=== PATIENT | female | born 1970 | race American Indian/Alaskan Native ===

== ENCOUNTER 2016-08-13 02:24 | Emergency (ER) | payer SELFPAY ==
[2016-08-13] MEDS ORDERED: PROVENTIL IH ONE ×2 (02:37→04:11)
[2016-08-13] MEDS ORDERED: MAGNESIUM SULFATE 2GM/50ML 2 GM in D5W 100 ML IV ONE (02:37)
--- NOTE | 2016-08-13 02:45 | Emergency Department Report ---
ED Shortness of Breath HPI - General Chief Complaint: Dyspnea/Respdistress Stated Complaint: DIONISIO Time Seen by Provider: 08/13/16 02:32 Source: patient, EMS Mode of arrival: Stretcher Limitations: No Limitations - History of Present Illness Initial Comments: 45-year-old female presents to the emergency department via EMS complaining of difficulty breathing. Patient reports symptoms began yesterday. She reports tightness in her chest that does not radiate. There is been cough productive of yellow to brown sputum. She denies fever. Patient states she has been using her nebulizer treatments at home without relief. EMS administered albuterol and 125 mg of Solu-Medrol IV. There are no other complaints. MD Complaint: shortness of breath -: Gradual, days(s) (1) Pain Scale: 3 Quality: other (tightness) Consistency: constant Improves With: nothing Worsens With: nothing Known History Of: asthma, congestive heart failure Treatments Prior to Arrival: oxygen, bronchodilator - Related Data Previous Rx's Medication Instructions Recorded Last Taken Type predniSONE [Deltasone] 3 tab PO QDAY #15 tab 08/13/16 Unknown Rx Allergies Allergy/AdvReac Type Severity Reaction Status Date / Time No Known Allergies Allergy Unverified 08/13/16 02:37 ED Review of Systems ROS: Stated complaint: DIONISIO Other details as noted in HPI Comment: All other systems reviewed and negative Respiratory: cough, shortness of breath, wheezing Cardiovascular: chest pain ED Past Medical Hx - Past Medical History Previous Medical History?: Yes Hx Hypertension: Yes Hx Congestive Heart Failure: Yes Hx Asthma: Yes - Surgical History Past Surgical History?: No - Family History Family history: no significant - Social History Smoking Status: Never Smoker - Medications Home Medications: Home Medications Medication Instructions Recorded Confirmed Last Taken Type predniSONE [Deltasone] 3 tab PO QDAY #15 tab 08/13/16 Unknown Rx ED Physical Exam - General Limitations: No Limitations General appearance: alert, in distress (mild respiratory distress) - Head Head exam: Present: atraumatic, normocephalic - Eye Eye exam: Present: normal appearance, PERRL, EOMI - ENT ENT exam: Present: normal exam, normal orophraynx, mucous membranes moist - Neck Neck exam: Present: normal inspection, full ROM. Absent: tenderness - Respiratory Respiratory exam: Present: respiratory distress (mild tachypnea), decreased breath sounds (bilateral posterior diffuse) - Cardiovascular Cardiovascular Exam: Present: regular rate, normal rhythm, normal heart sounds - GI/Abdominal GI/Abdominal exam: Present: soft, normal bowel sounds. Absent: distended, tenderness - Extremities Exam Extremities exam: Present: normal inspection, full ROM. Absent: tenderness - Back Exam Back exam: Present: normal inspection, full ROM. Absent: tenderness - Neurological Exam Neurological exam: Present: alert, oriented X3. Absent: motor sensory deficit - Skin Skin exam: Present: warm, dry, intact ED Course Vital Signs 08/13/16 08/13/16 08/13/16 02:41 02:49 03:08 Temperature 98 F Pulse Rate 79 Pulse Rate [ 79 Anterior Bilateral Throughout] Respiratory 20 20 Rate Respiratory 24 Rate [Anterior Bilateral Throughout] Blood Pressure 94/32 [Left] O2 Sat by Pulse 99 100 Oximetry 08/13/16 03:09 Temperature Pulse Rate Pulse Rate [ 80 Anterior Bilateral Throughout] Respiratory Rate Respiratory 24 Rate [Anterior Bilateral Throughout] Blood Pressure [Left] O2 Sat by Pulse Oximetry ED Medical Decision Making - Lab Data Result diagrams: 08/13/16 02:50 08/13/16 02:50 - EKG Data -: EKG Interpreted by Me EKG shows normal: sinus rhythm, axis, intervals, QRS complexes, ST-T waves Rate: normal - EKG Data When compared to previous EKG there are: no significant change Interpretation: normal EKG - Radiology Data Radiology results: image reviewed interpreted by me: Chest x-ray reveals no acute cardiopulmonary abnormality. - Medical Decision Making Lab and imaging results reviewed and discussed with the patient. Following medication, the patient reports feeling much better. Her chest tightness has resolved. Lung auscultation reveals clear breath sounds bilaterally. Patient will be discharged home at this time. - Differential Diagnosis asthma exacerbation, pneumonia, CHF Critical care attestation.: If time is entered above; I have spent that time in minutes in the direct care of this critically ill patient, excluding procedure time. ED Disposition Clinical Impression: Asthma exacerbation Disposition: DISCHARGED TO HOME OR SELFCARE Is pt being admited?: No Condition: Stable Instructions: Asthma (ED) Prescriptions: predniSONE [Deltasone] 3 tab PO QDAY #15 tab Referrals: PRIMARY CARE, [Primary Care Provider] - 3-5 Days Time of Disposition: 04:41
[2016-08-13] MEDS ORDERED: MAGNESIUM SULFATE 2GM/50ML 50 ML IV ONE (03:00)
[2016-08-13 03:11] LABS: Basophils % (Auto) 0.3 % (0.0-1.8); Eosinophils % (Auto) 0.6 % (0.0-4.3); Hematocrit 35.2 % (30.3-42.9); Hemoglobin 11.5 gm/dl (10.1-14.3); Mean Corpuscular HGB Conc 33 % (30-34); Mean Corpuscular Hemoglobin 29 pg (28-32); Mean Corpuscular Volume 88 fl (79-97); Platelet Count 207 K/mm3 (140-440); Red Cell Distribution Width 14.6 % (13.2-15.2)
[2016-08-13 03:27] LABS: BUN/Creatinine Ratio 15.45; Blood Urea Nitrogen 17 mg/dL (7-17); Calcium 8.6 mg/dL (8.4-10.2); Carbon Dioxide 27 mmol/L (22-30); Chloride 97.1 mmol/L (98-107); Glucose 136 mg/dL (65-100); Magnesium 1.5 mg/dL (1.7-2.3); Potassium 3.4 mmol/L (3.6-5.0); Sodium 142 mmol/L (137-145)
[2016-08-13 03:33] LABS: Anion Gap 21 mmol/L
[2016-08-13 05:45] VITALS: BP 116/81
--- NOTE | 2016-08-14 07:15 | XRay Report ---
AP CHEST: HISTORY: Dyspnea. FINDINGS: Compared to 08/13/10. There is mild cardiomegaly and borderline pulmonary vascularity. Trace pleural effusions could be present. No consolidation or pneumothorax. Heart and mediastinal structures are within normal limits. IMPRESSION: Correlate for mild CHF.
== END 2016-08-13 05:46 | disposition home or self-care (01) ==
LOC: ED 02:24
DX: J45.901 Unspecified asthma with (acute) exacerbation (principal); I10 Essential (primary) hypertension; I50.9 Heart failure, unspecified
CPT/HCPCS: 36415; 71010; 80048; 83735; 83880; 84484; 85025; 93005; 93010; 94640; 96374; 99285; J3475

== ENCOUNTER 2017-11-13 08:48 | Inpatient (IN) | payer OTHER ==
[2017-11-13 09:36] LABS: Hematocrit 44.1 % (30.3-42.9); Hemoglobin 13.9 gm/dl (10.1-14.3); Mean Corpuscular HGB Conc 32 % (30-34); Mean Corpuscular Hemoglobin 29 pg (28-32); Mean Corpuscular Volume 92 fl (79-97); Platelet Count 247 K/mm3 (140-440)
[2017-11-13] MEDS ORDERED: CARDENE 50 MG in NACL 0.9% 250ML 230 ML IV SCH (10:00)
[2017-11-13 10:02] LABS: Creatine Kinase MB 3.5 ng/mL (0.0-4.0)
[2017-11-13 10:03] LABS: Alanine Aminotransferase 19 units/L (7-56); Albumin 4.5 g/dL (3.9-5); BUN/Creatinine Ratio 28; Blood Urea Nitrogen 17 mg/dL (7-17); Calcium 8.8 mg/dL (8.4-10.2); Hemolysis Index 14
--- NOTE | 2017-11-13 10:15 | XRay Report ---
AP CHEST: HISTORY: Short of breath, confusion Mild cardiomegaly and mild pulmonary venous congestion have developed since 12/04/16. Trace pleural effusions are suspected. No consolidation or pneumothorax. IMPRESSION: Mild CHF which appears to be new since 12/04/16.
[2017-11-13 10:17] LABS: Chol/HDL Ratio 2.63 %
--- NOTE | 2017-11-13 10:27 | Emergency Department Report ---
ED Altered Mental Status HPI - General Chief Complaint: Altered Mental Status Stated Complaint: DIONISIO Time Seen by Provider: 11/13/17 09:11 Source: EMS, old records reviewed (cardiac cath November 2016 patent coronary arteries with normal LV function at that time) Mode of arrival: Stretcher Limitations: Altered Mental Status - History of Present Illness Initial Comments: 47-year-old female with a past medical history of asthma with history of previous intubation, hypertension, CVA this past August, and obesity presents to the hospital with alteration of mental status at work today. Patient is confused and unable to provide any reliable history at this time. 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 Patient placed in nonrebreather for transport and presents with a sat in the 90s. No specific pain report. Patient will follow basic commands but only alert and oriented 1. - Related Data Home Medications Medication Instructions Recorded Confirmed Last Taken Furosemide [Lasix TAB] 40 mg PO QDAY 11/13/17 11/13/17 Unknown Metformin HCl 1,000 mg PO BID 11/13/17 11/13/17 Unknown Potassium Chloride [K-Dur] 10 meq PO QDAY 11/13/17 11/13/17 Unknown Previous Rx's Medication Instructions Recorded Last Taken Type Losartan [Cozaar] 100 mg PO QDAY #30 tablet 12/05/16 Unknown Rx hydrALAZINE [Apresoline TAB] 100 mg PO TID #90 tab 12/05/16 Unknown Rx Allergies Allergy/AdvReac Type Severity Reaction Status Date / Time No Known Allergies Allergy Unverified 08/13/16 02:37 ED Review of Systems ROS: Stated complaint: DIONISIO Other details as noted in HPI Comment: Unobtainable due to pts medical conditions (confusion) ED Past Medical Hx - Past Medical History Hx Hypertension: Yes Hx Congestive Heart Failure: Yes Hx Asthma: Yes - Social History Smoking Status: Unknown if ever smoked - Medications Home Medications: Home Medications Medication Instructions Recorded Confirmed Last Taken Type Losartan [Cozaar] 100 mg PO QDAY #30 tablet 12/05/16 11/13/17 Unknown Rx hydrALAZINE [Apresoline TAB] 100 mg PO TID #90 tab 12/05/16 11/13/17 Unknown Rx Furosemide [Lasix TAB] 40 mg PO QDAY 11/13/17 11/13/17 Unknown History Metformin HCl 1,000 mg PO BID 11/13/17 11/13/17 Unknown History Potassium Chloride [K-Dur] 10 meq PO QDAY 11/13/17 11/13/17 Unknown History ED Physical Exam - General Limitations: Altered Mental Status - Other Other exam information: General: Limited by mental status, obese Head exam: Atraumatic, normocephalic Eyes exam: Normal appearance, pupils equal reactive to light, extraocular movements intact ENT: Moist mucous membrane, normal oropharynx Neck exam: Normal inspection, full range of motion, no meningismus nontender Respiratory exam: Tachypnea, bilateral crackles Cardiovascular: Tachycardic, positive systolic murmur Abdomen: Soft, nondistended, and nontender, with normal bowel sounds, no rebound, or guarding Extremity: Full range of motion normal inspection no deformity Back: Normal Inspection, full range of motion, no tenderness Neurologic: Alert, oriented 1, no facial droop, equal hand physical scientist and foot dorsiflexed Psychiatric: normal affect, normal mood Skin: Warm, dry, intact ED Course Vital Signs 11/13/17 11/13/17 11/13/17 09:02 09:16 09:30 Temperature Pulse Rate 105 H 102 H Respiratory 13 11 L Rate Blood Pressure 161/94 220/118 Blood Pressure [Left] O2 Sat by Pulse 63 L 96 98 Oximetry 11/13/17 11/13/17 11/13/17 09:33 09:40 12:45 Temperature 98.9 F Pulse Rate 107 H 75 Respiratory 12 13 12 Rate Blood Pressure 150/87 Blood Pressure 161/94 [Left] O2 Sat by Pulse 97 92 94 Oximetry 11/13/17 11/13/17 11/13/17 13:00 13:16 13:30 Temperature Pulse Rate 85 70 70 Respiratory 29 H 10 L 14 Rate Blood Pressure 168/103 106/42 115/50 Blood Pressure [Left] O2 Sat by Pulse 92 94 93 Oximetry 11/13/17 11/13/17 11/13/17 13:45 14:00 14:16 Temperature Pulse Rate 69 Respiratory 16 Rate Blood Pressure 106/62 129/48 84/70 Blood Pressure [Left] O2 Sat by Pulse 93 95 94 Oximetry - Reevaluation(s) Reevaluation #1: 11/13/17 10:54 Initial difficulty obtaining ABG due to body habitus. Patient was placed on BiPAP with settings 25/10, rate 25, satting 60%. Once ABG was obtained settings changed at 30/10 rate 30 and fio2 50%. Reevaluation #2: 11/13/17 13:04 patient became obtunded and no response to sternal rub. Patient was moved to another ED room in preparation for intubation. Just prior to intubation patient became alert, speaking, and able to follow commands. Patient placed back on BiPAP and patient will not be intubated at this time. Reevaluation #3: 11/13/17 repeat ABG showed improving CO2 and PH - Consultations Consultation #1: 11/13/17 10:48 Case discussed with Beatrice Lewis, consult ordered, will come to evaluate. - ABG Interpretation Ph: [phone] PCO2: 118 PO2: 112 Bicarbonate: 40 Interpretation: respiratory acidosis - Lab Data Result diagrams: 11/13/17 09:18 11/13/17 09:18 Lab Results 11/13/17 11/13/17 11/13/17 Range/Units 09:18 09:18 09:18 WBC 12.6 H (4.5-11.0) K/mm3 RBC 4.80 (3.65-5.03) M/mm3 Hgb 13.9 (10.1-14.3) gm/dl Hct 44.1 H (30.3-42.9) % MCV 92 (79-97) fl MCH 29 (28-32) pg MCHC 32 (30-34) % RDW 16.0 H (13.2-15.2) % Plt Count 247 (140-440) K/mm3 Add Manual Diff Complete Total Counted 100 Seg Neuts % (Manual) 78.0 H (40.0-70.0) % Band Neutrophils % 0 % Lymphocytes % (Manual) 13.0 L (13.4-35.0) % Reactive Lymphs % (Man) 0 % Monocytes % (Manual) 8.0 H (0.0-7.3) % Eosinophils % (Manual) 1.0 (0.0-4.3) % Basophils % (Manual) 0 (0.0-1.8) % Metamyelocytes % 0 % Myelocytes % 0 % Promyelocytes % 0 % Blast Cells % 0 % Nucleated RBC % Not Reportable Seg Neutrophils # Man 9.8 H (1.8-7.7) K/mm3 Band Neutrophils # 0.0 K/mm3 Lymphocytes # (Manual) 1.6 (1.2-5.4) K/mm3 Abs React Lymphs (Man) 0.0 K/mm3 Monocytes # (Manual) 1.0 H (0.0-0.8) K/mm3 Eosinophils # (Manual) 0.1 (0.0-0.4) K/mm3 Basophils # (Manual) 0.0 (0.0-0.1) K/mm3 Metamyelocytes # 0.0 K/mm3 Myelocytes # 0.0 K/mm3 Promyelocytes # 0.0 K/mm3 Blast Cells # 0.0 K/mm3 WBC Morphology Not Reportable Hypersegmented Neuts Not Reportable Hyposegmented Neuts Not Reportable Hypogranular Neuts Not Reportable Smudge Cells Not Reportable Toxic Granulation Not Reportable Toxic Vacuolation Not Reportable Dohle Bodies Not Reportable Pelger-Huet Anomaly Not Reportable Wan Rods Not Reportable Platelet Estimate Not Reportable Clumped Platelets Not Reportable Plt Clumps, EDTA Not Reportable Large Platelets Not Reportable Giant Platelets Not Reportable Platelet Satelliting Not Reportable Plt Morphology Comment Not Reportable RBC Morphology Normal Dimorphic RBCs Not Reportable Polychromasia Not Reportable Hypochromasia Not Reportable Poikilocytosis Not Reportable Anisocytosis Not Reportable Microcytosis Not Reportable Macrocytosis Not Reportable Spherocytes Not Reportable Pappenheimer Bodies Not Reportable Sickle Cells Not Reportable Target Cells Not Reportable Tear Drop Cells Not Reportable Ovalocytes Not Reportable Helmet Cells Not Reportable [place] Bodies Not Reportable [place] Rings Not Reportable [place] Cells Not Reportable Bite Cells Not Reportable Crenated Cell Not Reportable Elliptocytes Not Reportable Acanthocytes (Spur) Not Reportable Rouleaux Not Reportable Hemoglobin C Crystals Not Reportable Schistocytes Not Reportable Malaria parasites Not Reportable Derrell Bodies Not Reportable Hem Pathologist Commnt No Sodium 138 (137-145) mmol/L Potassium 4.7 (3.6-5.0) mmol/L Chloride 94.0 L (98-107) mmol/L Carbon Dioxide 32 H (22-30) mmol/L Anion Gap 17 mmol/L BUN 17 (7-17) mg/dL Creatinine 0.6 L (0.7-1.2) mg/dL Estimated GFR > 60 ml/min BUN/Creatinine Ratio 28 % Glucose 190 H (65-100) mg/dL Calcium 8.8 (8.4-10.2) mg/dL Total Bilirubin 0.30 (0.1-1.2) mg/dL AST 24 (5-40) units/L ALT 19 (7-56) units/L Alkaline Phosphatase 67 (35-129) units/L Total Creatine Kinase (30-135) units/L CK-MB (CK-2) (0.0-4.0) ng/mL CK-MB (CK-2) Rel Index (0-4) Troponin T (0.00-0.029) ng/mL NT-Pro-B Natriuret Pep (0-450) pg/mL Total Protein 7.8 (6.3-8.2) g/dL Albumin 4.5 (3.9-5) g/dL Albumin/Globulin Ratio 1.4 % Triglycerides (2-149) mg/dL Cholesterol (50-199) mg/dL LDL Cholesterol Direct (50-130) mg/dL HDL Cholesterol (40-59) mg/dL Cholesterol/HDL Ratio % TSH 0.893 (0.270-4.200) mlU/mL Plasma/Serum Alcohol (0-0.07) % 11/13/17 11/13/17 11/13/17 Range/Units 09:18 09:18 09:18 WBC (4.5-11.0) K/mm3 RBC (3.65-5.03) M/mm3 Hgb (10.1-14.3) gm/dl Hct (30.3-42.9) % MCV (79-97) fl MCH (28-32) pg MCHC (30-34) % RDW (13.2-15.2) % Plt Count (140-440) K/mm3 Add Manual Diff Total Counted Seg Neuts % (Manual) (40.0-70.0) % Band Neutrophils % % Lymphocytes % (Manual) (13.4-35.0) % Reactive Lymphs % (Man) % Monocytes % (Manual) (0.0-7.3) % Eosinophils % (Manual) (0.0-4.3) % Basophils % (Manual) (0.0-1.8) % Metamyelocytes % % Myelocytes % % Promyelocytes % % Blast Cells % % Nucleated RBC % Seg Neutrophils # Man (1.8-7.7) K/mm3 Band Neutrophils # K/mm3 Lymphocytes # (Manual) (1.2-5.4) K/mm3 Abs React Lymphs (Man) K/mm3 Monocytes # (Manual) (0.0-0.8) K/mm3 Eosinophils # (Manual) (0.0-0.4) K/mm3 Basophils # (Manual) (0.0-0.1) K/mm3 Metamyelocytes # K/mm3 Myelocytes # K/mm3 Promyelocytes # K/mm3 Blast Cells # K/mm3 WBC Morphology Hypersegmented Neuts Hyposegmented Neuts Hypogranular Neuts Smudge Cells Toxic Granulation Toxic Vacuolation Dohle Bodies Pelger-Huet Anomaly Wan Rods Platelet Estimate Clumped Platelets Plt Clumps, EDTA Large Platelets Giant Platelets Platelet Satelliting Plt Morphology Comment RBC Morphology Dimorphic RBCs Polychromasia Hypochromasia Poikilocytosis Anisocytosis Microcytosis Macrocytosis Spherocytes Pappenheimer Bodies Sickle Cells Target Cells Tear Drop Cells Ovalocytes Helmet Cells [place] Bodies [place] Rings [place] Cells Bite Cells Crenated Cell Elliptocytes Acanthocytes (Spur) Rouleaux Hemoglobin C Crystals Schistocytes Malaria parasites Derrell Bodies Hem Pathologist Commnt Sodium (137-145) mmol/L Potassium (3.6-5.0) mmol/L Chloride (98-107) mmol/L Carbon Dioxide (22-30) mmol/L Anion Gap mmol/L BUN (7-17) mg/dL Creatinine (0.7-1.2) mg/dL Estimated GFR ml/min BUN/Creatinine Ratio % Glucose (65-100) mg/dL Calcium (8.4-10.2) mg/dL Total Bilirubin (0.1-1.2) mg/dL AST (5-40) units/L ALT (7-56) units/L Alkaline Phosphatase (35-129) units/L Total Creatine Kinase 143 H (30-135) units/L CK-MB (CK-2) 3.5 (0.0-4.0) ng/mL CK-MB (CK-2) Rel Index 2.4 (0-4) Troponin T 0.047 H (0.00-0.029) ng/mL NT-Pro-B Natriuret Pep 522.9 H (0-450) pg/mL Total Protein (6.3-8.2) g/dL Albumin (3.9-5) g/dL Albumin/Globulin Ratio % Triglycerides 70 (2-149) mg/dL Cholesterol 208 H (50-199) mg/dL LDL Cholesterol Direct 124 (50-130) mg/dL HDL Cholesterol 79 H (40-59) mg/dL Cholesterol/HDL Ratio 2.63 % TSH (0.270-4.200) mlU/mL Plasma/Serum Alcohol < 0.01 (0-0.07) % - EKG Data -: EKG Interpreted by Me EKG shows normal: sinus rhythm, axis (26), QRS complexes (79), ST-T waves (no stemi, lat t wave inv) Rate: tachycardia (104) When compared to previous EKG there are: changes noted (but improved today) 11/13/17 11:18 repeat EKG shows lateral T-wave inversion without signs of ST elevation [place]. Previous anteroseptal infarct - Radiology Data Radiology results: report reviewed cxr Mild cardiomegaly and mild pulmonary venous congestion have developed since 12/04/16. Trace pleural effusions are suspected. No consolidation or pneumothorax. IMPRESSION: Mild CHF which appears to be new since 12/04/16. - Medical Decision Making Alteration in mental status C02 rention + hypoxia BIPap initiated Hypoxia Chest x-ray suggestive of CHF Likely CO2 retention Improving with supplementation Acute CHF As per chest x-ray read, crackles on exam, and lower extremity edema Lasix 40 mg IV ordered Elevated troponin No signs of STEMI Catheterization in 2017 Cardiology consult Aspirin initiated Uncontrolled hypertension Cardiac drip initiated Hospitalists informed of admission Critical care consult ordered - Differential Diagnosis encephalopathy, ICH, hypercapnia, hypoxia, CHF, [place] Critical Care Time: No Critical care attestation.: If time is entered above; I have spent that time in minutes in the direct care of this critically ill patient, excluding procedure time. ED Disposition Clinical Impression: Hypoxia, Altered mental state, Uncontrolled hypertension, Acute CHF, Elevated troponin, Morbid obesity, Respiratory distress, acute Disposition: 09 OP ADMIT IP TO THIS HOSP Is pt being admited?: Yes Condition: Stable Time of Disposition: 10:31 (hosp/Dr Moss/Dr albert)
[2017-11-13] MEDS ORDERED: LASIX IV ONE (10:28)
[2017-11-13] MEDS ORDERED: ASPIRIN PR ONE (10:29)
[2017-11-13] MEDS ORDERED: REGLAN PO PRN (11:07)
--- NOTE | 2017-11-13 11:10 | History and Physical Report ---
History of Present Illness Date of examination: 11/13/17 Date of admission: 11/13/17 Chief complaint: Altered mental status History of present illness: 47-year-old female with a past medical history of asthma with history of previous intubation, hypertension, CVA this past August, and obesity presents to the hospital by EMS with alteration of mental status and hypoxia. Patient was at work but [employer] called EMS because patient was "not acting right." EMS reports a O2 sat of 30-40% on room air with signs of peripheral cyanosis. Patient placed in nonrebreather for transport and presents to ER with a sat in the 90s. Patient is confused and unable to provide any reliable history at this time. No specific pain report. Patient will not follow basic commands but only open eyes with verbal commend or painful stimuli. In the ER ABG shows pH 7.098, pO2 112, CO2 118, HCO3 36. CXR shows mild HF, pro-BNP 522, BP was upto 220/118. Troponin minimally elevated 0.047, ECG with SR with LVH and repolarization abnormalities. No family member at bedside and no further details available. She was placed on BIpap in the ER but her ABG shows Ph of 7.09 and due to altered mental status she is about to get intubated. Past History Past Medical History: hypertension, other (asthma), CVA, HTN Past Surgical History: No surgical history Social history: denies: smoking, alcohol abuse Family history: no significant family history Review of System: Unobtainable Medications and Allergies Allergies Allergy/AdvReac Type Severity Reaction Status Date / Time No Known Allergies Allergy Unverified 08/13/16 02:37 Home Medications Medication Instructions Recorded Confirmed Last Taken Type Losartan [Cozaar] 100 mg PO QDAY #30 tablet 12/05/16 11/13/17 Unknown Rx hydrALAZINE [Apresoline TAB] 100 mg PO TID #90 tab 12/05/16 11/13/17 Unknown Rx Furosemide [Lasix TAB] 40 mg PO QDAY 11/13/17 11/13/17 Unknown History Metformin HCl 1,000 mg PO BID 11/13/17 11/13/17 Unknown History Potassium Chloride [K-Dur] 10 meq PO QDAY 11/13/17 11/13/17 Unknown History Active Meds: Active Medications Albuterol/Ipratropium (Duoneb *Not For Prn Use*) 1 ampul IH Q6HRT [facility] Amlodipine Besylate (Norvasc) 10 mg PO QDAY [facility] Aspirin (Halfprin Ec) 81 mg PO DAILY [facility] Enoxaparin Sodium (Lovenox) 40 mg SUB-Q QDAY [facility] Hydralazine HCl (Apresoline) 100 mg PO TID [facility] Hydralazine HCl (Apresoline) 5 mg IV Q30MIN PRN PRN Reason: Hypertension Nicardipine HCl 50 mg/ Sodium (Chloride) 250 mls @ 25 mls/hr IV TITR [facility]; Protocol Last Admin: 11/13/17 10:33 Dose: 5 mg/hr, 25 mls/hr Insulin Human Regular (Humulin R) 0 units SUB-Q ACHS [facility]; Protocol Isosorbide Mononitrate (Imdur) 60 mg PO QDAY [facility] Losartan Potassium (Cozaar) 100 mg PO QDAY [facility] Methylprednisolone Sodium Succinate (Solu-Medrol) 80 mg IV Q8H [facility] Metoclopramide HCl (Reglan) 10 mg PO Q6H PRN PRN Reason: Nausea And Vomiting Metoprolol Tartrate (Lopressor) 50 mg PO BID [facility] Exam - Physical Exam Narrative exam: GENERAL: well-developed morbidly obese -[place] female lying on bed appeared to be very lethargy HEENT: Normocephalic. Atraumatic. No conjunctival congestion or icterus. Patient has moist mucous membranes. NECK: Supple. Trachea midline. CHEST/LUNGS: Wheezes auscultated bilaterally, breathing labored. . HEART/CARDIOVASCULAR: tachycardic. S1 and S2 positive. ABDOMEN: Abdomen is soft, nontender. Patient has normal bowel sounds. SKIN: There is no rash. Warm and dry. NEURO: Will only open eyes on verbal commands MUSCULOSKELETAL: No joint effusion or tenderness. EXTRIMITY: No edema, no cyanosis or clubbing. PSYCH: Unable to assess. - Constitutional Vitals: Temp Pulse Resp BP Pulse Ox 98.9 F 107 H 13 161/94 92 11/13/17 09:33 11/13/17 09:33 11/13/17 09:40 11/13/17 09:33 11/13/17 09:40 Results - Labs CBC & Chem 7: 11/13/17 09:18 11/14/17 03:55 Labs: Abnormal lab results 11/13/17 11/13/17 11/13/17 Range/Units 09:18 09:18 09:18 WBC 12.6 H (4.5-11.0) K/mm3 Hct 44.1 H (30.3-42.9) % RDW 16.0 H (13.2-15.2) % POC ABG pH (7.35-7.45) POC ABG pCO2 (35-45) POC ABG pO2 (80-105) Chloride 94.0 L (98-107) mmol/L Carbon Dioxide 32 H (22-30) mmol/L Creatinine 0.6 L (0.7-1.2) mg/dL Glucose 190 H (65-100) mg/dL Total Creatine Kinase (30-135) units/L Troponin T (0.00-0.029) ng/mL NT-Pro-B Natriuret Pep 522.9 H (0-450) pg/mL Cholesterol (50-199) mg/dL HDL Cholesterol (40-59) mg/dL 11/13/17 11/13/17 Range/Units 09:18 10:53 WBC (4.5-11.0) K/mm3 Hct (30.3-42.9) % RDW (13.2-15.2) % POC ABG pH 7.098 L (7.35-7.45) POC ABG pCO2 118.3 H (35-45) POC ABG pO2 112 H (80-105) Chloride (98-107) mmol/L Carbon Dioxide (22-30) mmol/L Creatinine (0.7-1.2) mg/dL Glucose (65-100) mg/dL Total Creatine Kinase 143 H (30-135) units/L Troponin T 0.047 H (0.00-0.029) ng/mL NT-Pro-B Natriuret Pep (0-450) pg/mL Cholesterol 208 H (50-199) mg/dL HDL Cholesterol 79 H (40-59) mg/dL - Imaging and Cardiology Chest x-ray: report reviewed Assessment and Plan Acute respiratory failure Acute metabolic encephalopathy Acute exacerbation of asthma Hypertensive malignancy, Elevated troponin SIRS, with mild leukocytosis, tachycardia and tachypnea h/o CVA Morbid obesity - - We'll admit the patient to ICU, getting intubated in the ER - Will provide scheduled nebulizers breathing treatment - Place on empiric steroid and antibiotic - will get sputum culture, Provide supplemental oxygen to keep oxygen saturation above 92% - Consult pulmonary for critical care admission and vent management - We'll place on sliding scale of insulin as patient will be on empiric steroid - will trend troponin, obtain 2d ceho, cardiology consult - We will resume home medications with NG tube after intubation, if BP still uncontrol will place on cardene drip - Provide DVT prophylaxis with Lovenox. PPI for GI Px The high probability of a clinically significant, sudden or life threatening deterioration of the system(s) required my full and direct attention, intervention and personal management. The aggregate critical care time was [45] minutes. This time is in addition to time spent performing reported procedures but includes the following: [x] Data Review and interpretation [x] Patient assessment and monitoring of vital signs [x] Documentation [x] Medication orders and management
[2017-11-13 11:32] LABS: Bacteria,Urine 2+ /HPF (Negative); Bilirubin,Urine NEG (Negative); Blood,Urine NEG (Negative); Color,Urine Yellow (Yellow); Mucus,Urine FEW /HPF; Urobilinogen,Urine < 2.0 mg/dL (<2.0)
[2017-11-13 11:40] LABS: Amphetamine Screen,Urine PRESUMPTIVE NEGATIVE; Cocaine Screen,Urine PRESUMPTIVE NEGATIVE; Methadone Screen,Urine PRESUMPTIVE NEGATIVE; Opiate Screen,Urine PRESUMPTIVE NEGATIVE
--- NOTE | 2017-11-13 11:46 | Consultation ---
History of Present Illness Consult date: 11/13/17 Requesting physician: TRESSA VALLE Consult reason: congestive heart failure, elevated troponin History of present illness: The pt is a 47 YO female with a past medical history significant for HTN, asthma , CVA, obesity. She has been seen by our practice on prior hospitalization. Pt is nonresponsive and on BiPAP on evaluation with no family at bedside and thus HPI is obtained per the chart and per ED MD. Pt presented with AMS. Pt was noted to have altered mental status at work this morning and thus her co- workers called EMS. EMS reports a O2 sat of 30-40% on room air with signs of peripheral cyanosis. ABG shows pH 7.098, pO2 112, CO2 118, HCO3 36. CXR shows mild HF, pro-BNP 522. Troponin minimally elevated 0.047, ECG with SR with LVH and repolarization abnormalities. LHC done 11/2016 showed patent coronaries, hypertensive vessels, large epicardial vessels, mod to severe tortuosity of vessels, normal LV function. Past History Past Medical History: hypertension, stroke, other (asthma) Medications and Allergies Allergies Allergy/AdvReac Type Severity Reaction Status Date / Time No Known Allergies Allergy Unverified 08/13/16 02:37 Home Medications Medication Instructions Recorded Confirmed Last Taken Type Losartan [Cozaar] 100 mg PO QDAY #30 tablet 12/05/16 11/13/17 Unknown Rx hydrALAZINE [Apresoline TAB] 100 mg PO TID #90 tab 12/05/16 11/13/17 Unknown Rx Furosemide [Lasix TAB] 40 mg PO QDAY 11/13/17 11/13/17 Unknown History Metformin HCl 1,000 mg PO BID 11/13/17 11/13/17 Unknown History Potassium Chloride [K-Dur] 10 meq PO QDAY 11/13/17 11/13/17 Unknown History Active Meds: Active Medications Albuterol/Ipratropium (Duoneb *Not For Prn Use*) 1 ampul IH Q6HRT [facility] Amlodipine Besylate (Norvasc) 10 mg PO QDAY [facility] Aspirin (Halfprin Ec) 81 mg PO DAILY [facility] Enoxaparin Sodium (Lovenox) 40 mg SUB-Q QDAY [facility] Hydralazine HCl (Apresoline) 100 mg PO TID [facility] Hydralazine HCl (Apresoline) 5 mg IV Q30MIN PRN PRN Reason: Hypertension Nicardipine HCl 50 mg/ Sodium (Chloride) 250 mls @ 25 mls/hr IV TITR [facility]; Protocol Last Admin: 11/13/17 10:33 Dose: 5 mg/hr, 25 mls/hr Insulin Human Regular (Humulin R) 0 units SUB-Q ACHS [facility]; Protocol Isosorbide Mononitrate (Imdur) 60 mg PO QDAY [facility] Losartan Potassium (Cozaar) 100 mg PO QDAY [facility] Methylprednisolone Sodium Succinate (Solu-Medrol) 80 mg IV Q8H [facility] Metoclopramide HCl (Reglan) 10 mg PO Q6H PRN PRN Reason: Nausea And Vomiting Metoprolol Tartrate (Lopressor) 50 mg PO BID [facility] Review of Systems ROS unobtainable: due to mental status Physical Examination Vital Signs Pulse Ox 63 L 11/13/17 09:02 General appearance: other (nonresponsive, on BiPAP, withdraws from painful stimuli) HEENT: Positive: Normocephaly Neck: Positive: neck supple, trachea midline Cardiac: Positive: Regular Rhythm, S1/S2, Systolic Murmur, Tachycardia Lungs: Positive: Decreased Breath Sounds, Wheezes, Oxygen Neuro: Positive: Other (nonresponsive, withdraws from painful stimuli) Abdomen: Positive: Active Bowel Sounds Skin: Positive: Clear. Negative: Rash, Wound Musculoskeletal: No Pain, Normal Range of Motion Extremities: Present: edema (trace BLE) Results 11/13/17 09:18 11/13/17 09:18 Cardiac Enzymes 11/13/17 11/13/17 Range/Units 09:18 09:18 AST 24 (5-40) units/L CK-MB (CK-2) 3.5 (0.0-4.0) ng/mL Lipids 11/13/17 Range/Units 09:18 Triglycerides 70 (2-149) mg/dL Cholesterol 208 H (50-199) mg/dL HDL Cholesterol 79 H (40-59) mg/dL Cholesterol/HDL Ratio 2.63 % CBC 11/13/17 Range/Units 09:18 WBC 12.6 H (4.5-11.0) K/mm3 RBC 4.80 (3.65-5.03) M/mm3 Hgb 13.9 (10.1-14.3) gm/dl Hct 44.1 H (30.3-42.9) % Plt Count 247 (140-440) K/mm3 Comprehensive Metabolic Panel 11/13/17 Range/Units 09:18 Sodium 138 (137-145) mmol/L Potassium 4.7 (3.6-5.0) mmol/L Chloride 94.0 L (98-107) mmol/L Carbon Dioxide 32 H (22-30) mmol/L BUN 17 (7-17) mg/dL Creatinine 0.6 L (0.7-1.2) mg/dL Glucose 190 H (65-100) mg/dL Calcium 8.8 (8.4-10.2) mg/dL AST 24 (5-40) units/L ALT 19 (7-56) units/L Alkaline Phosphatase 67 (35-129) units/L Total Protein 7.8 (6.3-8.2) g/dL Albumin 4.5 (3.9-5) g/dL - Imaging and Cardiology Echo: pending Cardiac cath: report reviewed (11/2016 showed patent coronaries, hypertensive vessels, large epicardial vessels, mod to severe tortuosity of vessels, normal LV function. ) EKG: report reviewed, image reviewed EKG interpretations - Telemetry EKG Rhythm: Sinus Rhythm - EKG Sinus rhythms and dysrhythmias: sinus rhythm Chamber hypertrophy or enlargement: left ventricular hypertro Repolarization changes or abnormalities: repolarization abn secondary to ventricular hypertrophy Assessment and Plan Initiate scheduled diuresis with IV lasix BID. Continue cardene gtt. Obtain echo. Cont to trend Andrea. Repeat EKG in AM. Await critical care/pulmonary consultation. Pt may require intubation in the near future. The patient has been seen in conjunction with Dr. Corona who agrees with the assessment and plan of care. - Patient Problems (1) Acute respiratory failure Current Visit: Yes Status: Acute (2) CO2 narcosis Current Visit: Yes Status: Acute (3) Acute heart failure Current Visit: Yes Status: Acute (4) Hypertensive urgency Current Visit: Yes Status: Acute (5) Elevated troponin Current Visit: Yes Status: Acute (6) Asthma Current Visit: Yes Status: Chronic (7) History of CVA (cerebrovascular accident) Current Visit: Yes Status: Acute (8) Hyperlipidemia Current Visit: Yes Status: Chronic (9) Morbid obesity Current Visit: Yes Status: Chronic
[2017-11-13 11:54] LABS: Benzodiazepines Screen,Urine PRESUMPTIVE POSITIVE; Cannabinoid Screen,Urine PRESUMPTIVE POSITIVE
[2017-11-13] MEDS: HumuLIN R SUB-Q SCH ×2 (11:56→18:03)
[2017-11-13 12:07] LABS: Basophils % (Manual) 0 % (0.0-1.8); RBC Morphology Normal; Total Cells Counted 100
--- NOTE | 2017-11-13 13:37 | Consultation ---
History of Present Illness Consult date: 11/13/17 History of present illness: History per medical records. At the time of my evaluation, she was only responsive to sternal rub. Per ER staff, she has been like that. when they were preparing to orally intubate her, she woke up and "cussed" everyone out, insisting that she does not need a tube. 47-year-old female with a past medical history of asthma with history of previous intubation, hypertension, CVA this past August, and obesity presents to the hospital with alteration of mental status at work today. Patient is confused and unable to provide any reliable history at this time. 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 Patient placed in non rebreather for transport and presents with a sat in the 90s. No specific pain report. Patient will follow basic commands but only alert and oriented 1 ABG shows pH 7.098, pO2 112, CO2 118, HCO3 36. CXR shows mild HF, pro-BNP 522. Troponin minimally elevated 0.047, ECG with SR with LVH and repolarization abnormalities. Patient was seen and examined. Vitals, labs, medications, chart reviewed. On BIPAP, obtunded Past History Past Medical History: hypertension, stroke, other (asthma) Medications and Allergies Allergies Allergy/AdvReac Type Severity Reaction Status Date / Time No Known Allergies Allergy Unverified 08/13/16 02:37 Home Medications Medication Instructions Recorded Confirmed Last Taken Type Losartan [Cozaar] 100 mg PO QDAY #30 tablet 12/05/16 11/13/17 Unknown Rx hydrALAZINE [Apresoline TAB] 100 mg PO TID #90 tab 12/05/16 11/13/17 Unknown Rx Furosemide [Lasix TAB] 40 mg PO QDAY 11/13/17 11/13/17 Unknown History Metformin HCl 1,000 mg PO BID 11/13/17 11/13/17 Unknown History Potassium Chloride [K-Dur] 10 meq PO QDAY 11/13/17 11/13/17 Unknown History Active Meds: Active Medications Albuterol/Ipratropium (Duoneb *Not For Prn Use*) 1 ampul IH Q6HRT [facility] Amlodipine Besylate (Norvasc) 10 mg PO QDAY [facility] Aspirin (Halfprin Ec) 81 mg PO DAILY [facility] Enoxaparin Sodium (Lovenox) 40 mg SUB-Q QDAY [facility] Furosemide (Lasix) 40 mg IV 0600,1800 [facility] Hydralazine HCl (Apresoline) 100 mg PO TID [facility] Hydralazine HCl (Apresoline) 5 mg IV Q30MIN PRN PRN Reason: Hypertension Nicardipine HCl 50 mg/ Sodium (Chloride) 250 mls @ 25 mls/hr IV TITR [facility]; Protocol Last Admin: 11/13/17 10:33 Dose: 5 mg/hr, 25 mls/hr Insulin Human Regular (Humulin R) 0 units SUB-Q ACHS [facility]; Protocol Last Admin: 11/13/17 11:56 Dose: Not Given Isosorbide Mononitrate (Imdur) 60 mg PO QDAY [facility] Losartan Potassium (Cozaar) 100 mg PO QDAY [facility] Methylprednisolone Sodium Succinate (Solu-Medrol) 80 mg IV Q8H [facility] Metoclopramide HCl (Reglan) 10 mg PO Q6H PRN PRN Reason: Nausea And Vomiting Metoprolol Tartrate (Lopressor) 50 mg PO BID [facility] Review of Systems ROS unobtainable: due to mental status Physical Examination Vital signs: Pulse Ox 63 L 11/13/17 09:02 General: Limited by mental status, obese Head exam: Atraumatic, normocephalic, on BIPAP Eyes exam: Normal appearance, pupils equal reactive to light, extraocular movements intact Neck exam: Normal inspection, short neck, full range of motion, no meningismus non-tender Respiratory exam: Tachypnea, bilateral crackles Cardiovascular: Tachycardic, positive systolic murmur Abdomen: Soft, non-distended, and non-tender, with normal bowel sounds, no rebound, or guarding Extremity: Full range of motion normal inspection no deformity, chronic venous stasis changes Back: Normal Inspection, full range of motion, no tenderness Neurologic: Obtunded, withdraws to painful stimuli, non-focal, no facial droop Psychiatric: unable to assess secondary to mental status Skin: Warm, dry, intact Results - Laboratory Findings CBC and BMP: 11/13/17 09:18 11/14/17 03:55 ABG POC ABG pH 7.098 (7.35-7.45) L 11/13/17 10:53 POC ABG pCO2 118.3 (35-45) H 11/13/17 10:53 POC ABG pO2 112 (80-105) H 11/13/17 10:53 POC ABG HCO3 36.6 11/13/17 10:53 POC ABG Total CO2 40 11/13/17 10:53 POC ABG O2 Sat 95 11/13/17 10:53 Abnormal lab findings: Abnormal Labs 11/13/17 11/13/17 11/13/17 09:18 09:18 09:18 WBC 12.6 H Hct 44.1 H RDW 16.0 H Seg Neuts % (Manual) 78.0 H Lymphocytes % (Manual) 13.0 L Monocytes % (Manual) 8.0 H Seg Neutrophils # Man 9.8 H Monocytes # (Manual) 1.0 H POC ABG pH POC ABG pCO2 POC ABG pO2 Chloride 94.0 L Carbon Dioxide 32 H Creatinine 0.6 L Glucose 190 H Total Creatine Kinase Troponin T NT-Pro-B Natriuret Pep 522.9 H Cholesterol HDL Cholesterol 11/13/17 11/13/17 11/13/17 09:18 10:53 12:02 WBC Hct RDW Seg Neuts % (Manual) Lymphocytes % (Manual) Monocytes % (Manual) Seg Neutrophils # Man Monocytes # (Manual) POC ABG pH 7.098 L POC ABG pCO2 118.3 H POC ABG pO2 112 H Chloride Carbon Dioxide Creatinine Glucose Total Creatine Kinase 143 H Troponin T 0.047 H 0.087 H D NT-Pro-B Natriuret Pep Cholesterol 208 H HDL Cholesterol 79 H Assessment and Plan Acute hypercapnic respiratory failure Acute metabolic encephalopathy Acute exacerbation of asthma Morbid obesity Elevated troponin SIRS Malignant HTN Elevated troponin h/o CVA -Remains obtunded and minimally responsive on BIPAP, orally intubate and place on mechanical ventilatory support(discussed with ED physician) -Lung protective strategies once intubated -Restrictive oxygen therapy -VAP bundle once intubated -ABG post intubation, target minute ventilation of 11-12 to help treat hypercarbia -Antibiotics -Bronchodilators -Agitation management once intubated -Steroids, accucheck with glycemic control -VTE prophylaxis/Stress ulcer prophylaxis -Serial troponins, echocardiogram. -BP monitoring and management - Critically ill at risk of acute decompensation from a pulmonary and hemodynamic perspective. - Critical care time in (mins) excluding proc time.: 45 Critical care attestation.: If time is entered above; I have spent that time in minutes in the direct care of this critically ill patient, excluding procedure time.
[2017-11-13] MEDS: NORVASC PO SCH (14:43)
[2017-11-13] MEDS: APRESOLINE PO SCH ×2 (14:43→20:18)
[2017-11-13] MEDS: IMDUR PO SCH (14:43)
[2017-11-13] MEDS: COZAAR PO SCH (14:43)
[2017-11-13] MEDS ORDERED: KETALAR IV ONE (16:40)
[2017-11-13] MEDS ORDERED: ZEMURON IV ONE (16:40)
[2017-11-13] MEDS ORDERED: VASELINE LIP THERAPY TP PRN ×2 (17:14→17:19)
[2017-11-13] MEDS ORDERED: ARTIFICIAL TEARS OPHTH OINT OU PRN ×2 (17:14→17:19)
--- NOTE | 2017-11-13 17:28 | Emergency Department Report ---
ED Shortness of Breath HPI - General Chief Complaint: Altered Mental Status Stated Complaint: DIONISIO Time Seen by Provider: 11/13/17 09:11 Source: EMS, old records reviewed (cardiac cath November 2016 patent coronary arteries with normal LV function at that time) Mode of arrival: Stretcher Limitations: Altered Mental Status - Related Data Home Medications Medication Instructions Recorded Confirmed Last Taken Furosemide [Lasix TAB] 40 mg PO QDAY 11/13/17 11/13/17 Unknown Metformin HCl 1,000 mg PO BID 11/13/17 11/13/17 Unknown Potassium Chloride [K-Dur] 10 meq PO QDAY 11/13/17 11/13/17 Unknown Previous Rx's Medication Instructions Recorded Last Taken Type Losartan [Cozaar] 100 mg PO QDAY #30 tablet 12/05/16 Unknown Rx hydrALAZINE [Apresoline TAB] 100 mg PO TID #90 tab 12/05/16 Unknown Rx Allergies Allergy/AdvReac Type Severity Reaction Status Date / Time No Known Allergies Allergy Unverified 08/13/16 02:37 ED Review of Systems ROS: Stated complaint: DIONISIO Other details as noted in HPI ED Past Medical Hx - Past Medical History Hx Hypertension: Yes Hx Congestive Heart Failure: Yes Hx Asthma: Yes - Social History Smoking Status: Unknown if ever smoked - Medications Home Medications: Home Medications Medication Instructions Recorded Confirmed Last Taken Type Losartan [Cozaar] 100 mg PO QDAY #30 tablet 12/05/16 11/13/17 Unknown Rx hydrALAZINE [Apresoline TAB] 100 mg PO TID #90 tab 12/05/16 11/13/17 Unknown Rx Furosemide [Lasix TAB] 40 mg PO QDAY 11/13/17 11/13/17 Unknown History Metformin HCl 1,000 mg PO BID 11/13/17 11/13/17 Unknown History Potassium Chloride [K-Dur] 10 meq PO QDAY 11/13/17 11/13/17 Unknown History ED Physical Exam - General Limitations: Altered Mental Status ED Course Vital Signs 11/13/17 11/13/17 11/13/17 09:02 09:16 09:30 Temperature Pulse Rate 105 H 102 H Respiratory 13 11 L Rate Blood Pressure 161/94 220/118 Blood Pressure [Left] O2 Sat by Pulse 63 L 96 98 Oximetry 11/13/17 11/13/17 11/13/17 09:33 09:40 12:45 Temperature 98.9 F Pulse Rate 107 H 75 Respiratory 12 13 12 Rate Blood Pressure 150/87 Blood Pressure 161/94 [Left] O2 Sat by Pulse 97 92 94 Oximetry 11/13/17 11/13/17 11/13/17 13:00 13:16 13:30 Temperature Pulse Rate 85 70 70 Respiratory 29 H 10 L 14 Rate Blood Pressure 168/103 106/42 115/50 Blood Pressure [Left] O2 Sat by Pulse 92 94 93 Oximetry 11/13/17 11/13/17 11/13/17 13:45 14:00 14:16 Temperature Pulse Rate 69 Respiratory 16 Rate Blood Pressure 106/62 129/48 84/70 Blood Pressure [Left] O2 Sat by Pulse 93 95 94 Oximetry 11/13/17 11/13/17 11/13/17 14:30 14:46 15:00 Temperature Pulse Rate 65 63 63 Respiratory 12 30 H 13 Rate Blood Pressure 162/53 114/40 114/45 Blood Pressure [Left] O2 Sat by Pulse 91 95 95 Oximetry 11/13/17 11/13/17 11/13/17 15:16 15:30 15:45 Temperature Pulse Rate 58 L 60 64 Respiratory 31 H 14 27 H Rate Blood Pressure 106/39 109/47 120/46 Blood Pressure [Left] O2 Sat by Pulse 97 100 94 Oximetry 11/13/17 11/13/17 11/13/17 16:00 16:07 16:16 Temperature Pulse Rate 57 L 66 Respiratory 31 H 30 H 14 Rate Blood Pressure 123/97 123/97 Blood Pressure [Left] O2 Sat by Pulse 16 L 95 97 Oximetry 11/13/17 11/13/17 11/13/17 16:30 16:46 17:00 Temperature Pulse Rate 56 L 59 L Respiratory 13 9 L Rate Blood Pressure 121/46 117/54 127/69 Blood Pressure [Left] O2 Sat by Pulse 99 99 98 Oximetry 11/13/17 17:10 Temperature Pulse Rate 90 Respiratory Rate Blood Pressure 127/69 Blood Pressure [Left] O2 Sat by Pulse 100 Oximetry - Intubation Time Out Performed: Yes Sedative: Ketamine Paralytic: Rocuronium Laryngoscope: Harman Size: 4 Assist Device Used: Bougie ET Tube Size: 7.5 Tube Secured Depth (cm): 21 Tube Secured Location: teeth Tube Placement Confirmation: visualized tube passing t, equal breath sounds bilat, confirmation by capnometr Patient Tolerated Procedure: well Intubation Complications: none ED Medical Decision Making - Lab Data Result diagrams: 11/13/17 09:18 11/13/17 09:18 - Medical Decision Making Due to worsening blood gases, patient was intubated. She tolerated the procedure well. See procedure note for details. The ICU attending has been informed. Critical care attestation.: If time is entered above; I have spent that time in minutes in the direct care of this critically ill patient, excluding procedure time. ED Disposition Clinical Impression: Respiratory failure Disposition: DC- OP ADMIT IP TO THIS HOSP Is pt being admited?: Yes Condition: Stable
[2017-11-13] MEDS: fentaNYL DRIP Premix 2,000 MCG/100 ML BAG IV SCH ×2 (17:55→22:05)
[2017-11-13] MEDS ORDERED: NACL 0.9% 500 ML IV SCH (18:00)
--- NOTE | 2017-11-13 18:08 | XRay Report ---
FINAL REPORT EXAM: XR CHEST 1V AP HISTORY: ETT placement TECHNIQUE: Chest single AP view PRIORS: No prior studies submitted for comparison FINDINGS: ET tube is present tip approximately midway between thoracic inlet and the dulce maria in satisfactory position. No confluent pulmonary infiltrate identified. No pleural fluid collection seen. Cardiac and mediastinal contours are unremarkable. IMPRESSION: ET tube in satisfactory position No acute pulmonary findings
[2017-11-13] MEDS: LASIX IV SCH (18:15)
[2017-11-13] MEDS: DUONEB *Not for PRN Use IH SCH ×2 (18:19→21:00)
[2017-11-13] MEDS ORDERED: SUBLIMAZE IV ONE (18:45)
[2017-11-13] MEDS ORDERED: SUBLIMAZE ONE (19:02)
[2017-11-13] MEDS ORDERED: D5NS 1,000 ML IV ONE (20:11)
[2017-11-13] MEDS ORDERED: MIDAZOLAM 100 MG in NACL 0.9% 80 ML IV SCH (21:00)
[2017-11-14] MEDS: DUONEB *Not for PRN Use IH SCH ×4 (02:48→19:28)
[2017-11-14 04:48] LABS: Calcium 8.7 mg/dL (8.4-10.2)
--- NOTE | 2017-11-14 04:55 | XRay Report ---
FINAL REPORT PROCEDURE: XR CHEST 1V AP TECHNIQUE: Chest radiograph anteroposterior view. CPT 94403 HISTORY: follow up respiratory failure COMPARISON: 11/13/2017 FINDINGS: Heart: The heart is enlarged Mediastinum/Vessels: Normal. Lungs/Pleural space: There is suboptimal inspiration. There are no active infiltrates. There are no effusions or pneumothoraces.. Bony thorax: No acute osseous abnormality. Life support devices: There is an endotracheal tube in the mid trachea.. IMPRESSION: The heart is enlarged There is suboptimal inspiration. There are no active infiltrates. There are no effusions or pneumothoraces.. There is an endotracheal tube in the mid trachea.. .
[2017-11-14] MEDS: HumuLIN R SUB-Q SCH ×4 (07:30→22:13)
[2017-11-14] MEDS: APRESOLINE PO SCH ×3 (08:00→20:27)
[2017-11-14] MEDS: fentaNYL DRIP Premix 2,000 MCG/100 ML BAG IV SCH ×2 (08:14→20:23)
--- NOTE | 2017-11-14 09:17 | XRay Report ---
AP ABDOMEN: HISTORY: Nasogastric tube placement. A nasogastric tube has been inserted which terminates in the antrum of the stomach near the pylorus. The abdominal gas pattern is unremarkable. No masses or organomegaly is identified and there is no gross evidence of free air or fluid. No significant soft tissue calcifications are noted. IMPRESSION: Unremarkable abdomen. Nasogastric tube as described.
[2017-11-14] MEDS ORDERED: PANCREAZE DR 10,500 UNIT FEEDTUBE PRN ×2 (09:19)
[2017-11-14] MEDS ORDERED: SIMPLE SYRUP FEEDTUBE PRN ×4 (09:19)
[2017-11-14] MEDS ORDERED: SODIUM BICARBONATE FEEDTUBE PRN ×2 (09:19)
[2017-11-14] MEDS: D5NS 1,000 ML IV SCH (09:50)
--- NOTE | 2017-11-14 09:51 | Progress Note ---
Assessment and Plan Echo reviewed - EF 55-60%, mild LVH, mild , no change in the dimension of the IVC with respiration c/w markedly increased right atrial pressure. Continue diuresis. Monitor renal indices. Continue supportive measures. The patient has been seen in conjunction with Dr. Corona who agrees with the assessment and plan of care. - Patient Problems (1) Acute respiratory failure Current Visit: Yes Status: Acute (2) CO2 narcosis Current Visit: Yes Status: Acute (3) (HFpEF) heart failure with preserved ejection fraction Current Visit: Yes Status: Acute (4) Hypertensive urgency Current Visit: Yes Status: Acute (5) Elevated troponin Current Visit: Yes (6) Asthma Current Visit: Yes Status: Chronic (7) History of CVA (cerebrovascular accident) Current Visit: Yes Status: Acute (8) Hyperlipidemia Current Visit: Yes Status: Chronic (9) Aortic stenosis Current Visit: Yes Status: Chronic (10) Morbid obesity Current Visit: Yes Status: Chronic Subjective Date of service: 11/14/17 Principal diagnosis: respiratory failure Interval history: pt intubated, on sedation, opens eyes to command and nods head appropriately to questions. BPs improved. cardene gtt weaned. Objective Last Vital Signs Temp 99.8 F H 11/14/17 03:43 Pulse 70 11/14/17 08:36 Resp 20 11/14/17 08:36 BP 123/57 11/14/17 07:30 Pulse Ox 98 11/14/17 08:36 - Physical Examination General: Other (intubated) HEENT: Positive: PERRL, Normocephaly Neck: Positive: neck supple, trachea midline Cardiac: Positive: Reg Rate and Rhythm, S1/S2, Systolic Murmur Lungs: Positive: Decreased Breath Sounds, Oxygen, Ventilated Respirations Neuro: Positive: Other (intubated, opens eyes to command and nods appropriately to questions ) Abdomen: Positive: Active Bowel Sounds Skin: Positive: Clear. Negative: Rash, Wound Musculoskeletal: No Pain, Normal Range of Motion Extremities: Present: edema (trace BLE) - Labs and Meds Cardiac Enzymes 11/13/17 11/13/17 Range/Units 09:18 09:18 AST 24 (5-40) units/L CK-MB (CK-2) 3.5 (0.0-4.0) ng/mL Lipids 11/13/17 Range/Units 09:18 Triglycerides 70 (2-149) mg/dL Cholesterol 208 H (50-199) mg/dL HDL Cholesterol 79 H (40-59) mg/dL Cholesterol/HDL Ratio 2.63 % Comprehensive Metabolic Panel 11/13/17 11/14/17 Range/Units 09:18 03:55 Sodium 138 139 (137-145) mmol/L Potassium 4.7 4.9 (3.6-5.0) mmol/L Chloride 94.0 L 93.4 L (98-107) mmol/L Carbon Dioxide 32 H 30 (22-30) mmol/L BUN 17 26 H (7-17) mg/dL Creatinine 0.6 L 1.3 H D (0.7-1.2) mg/dL Glucose 190 H 164 H (65-100) mg/dL Calcium 8.8 8.7 (8.4-10.2) mg/dL AST 24 (5-40) units/L ALT 19 (7-56) units/L Alkaline Phosphatase 67 (35-129) units/L Total Protein 7.8 (6.3-8.2) g/dL Albumin 4.5 (3.9-5) g/dL - Imaging and Cardiology EKG: report reviewed, image reviewed Echo: report reviewed Cardiac cath: report reviewed (11/2016 showed patent coronaries, hypertensive vessels, large epicardial vessels, mod to severe tortuosity of vessels, normal LV function. ) - Telemetry EKG Rhythm: Sinus Rhythm - EKG Sinus rhythms and dysrhythmias: sinus rhythm Chamber hypertrophy or enlargement: left ventricular hypertro Repolarization changes or abnormalities: repolarization abn secondary to ventricular hypertrophy
[2017-11-14] MEDS: LOPRESSOR PO SCH ×2 (09:52→22:11)
[2017-11-14] MEDS: HALFPRIN EC PO SCH (09:54)
[2017-11-14] MEDS: COZAAR PO SCH (09:54)
[2017-11-14] MEDS: IMDUR PO SCH (09:55)
[2017-11-14] MEDS: NORVASC PO SCH (09:55)
[2017-11-14] MEDS ORDERED: LOVENOX SUB-Q SCH (10:00)
--- NOTE | 2017-11-14 10:45 | Progress Note ---
Assessment and Plan Acute hypercapnic hypoxemic respiratory failure Acute metabolic encephalopathy Hypertensive Urgency Acute exacerbation of asthma Morbid obesity Elevated troponin SIRS URIEL - continue MVS, reduce set rate and attempt SBT's if tolerates reduced minute ventilation - avoid oversedation - continue bronchodilators with pulmonary hygiene per RT - continue lung protective strategies - continue empiric Antibiotics; follow microbiology and clinically for de- escalation - continue systemic steroids - diuretics to be held re: Azotemia - enteral nutrion as tolerated - continue accucheck with glycemic control per SSI - continue GI & VTE prophylaxis - ACS w/up, Serial troponins, 2D echocardiogram per cardiology (follow 2D ECHO report re: CHF vs ARDS issues) - continue other care per attending / other consultants ..... case discussed at length during rounds and care plan formulated ... 35' CCT Subjective Date of service: 11/14/17 Principal diagnosis: Acute Hypoxemic Hypercapnic respiratory failure; Acute Encephalopathy; HTN Interval history: Patient is seen today for: Acute Hypoxemic Hypercapnic respiratory failure; Acute Encephalopathy; HTN Seen and examined at bedside; 24hour events reviewed; nursing and respiratory care staff consulted; no adverse overnight events reported to me; remains on MVS ; anxious; daughters in room; denies acute chest pains but still SOB; No N/V/F/C Objective Vital Signs - 12hr 11/13/17 11/13/17 11/13/17 22:55 23:00 23:30 Temperature Pulse Rate 59 L 57 L 58 L Pulse Rate [ Anterior Bilateral Throughout] Pulse Rate [ Apical] Pulse Rate [ Radial] Respiratory Rate Respiratory Rate [Anterior Bilateral Throughout] Blood Pressure 89/31 95/33 O2 Sat by Pulse 97 98 99 Oximetry 11/13/17 11/14/17 11/14/17 23:36 00:00 00:10 Temperature 97.3 F L Pulse Rate 61 59 L Pulse Rate [ Anterior Bilateral Throughout] Pulse Rate [ Apical] Pulse Rate [ 106 H Radial] Respiratory 20 Rate Respiratory Rate [Anterior Bilateral Throughout] Blood Pressure 100/46 101/40 O2 Sat by Pulse 99 98 Oximetry 11/14/17 11/14/17 11/14/17 00:30 01:00 01:31 Temperature Pulse Rate 61 62 64 Pulse Rate [ Anterior Bilateral Throughout] Pulse Rate [ Apical] Pulse Rate [ Radial] Respiratory Rate Respiratory Rate [Anterior Bilateral Throughout] Blood Pressure 104/46 99/51 99/51 O2 Sat by Pulse 96 97 97 Oximetry 11/14/17 11/14/17 11/14/17 02:01 02:31 02:48 Temperature Pulse Rate 62 83 Pulse Rate [ 76 Anterior Bilateral Throughout] Pulse Rate [ Apical] Pulse Rate [ Radial] Respiratory Rate Respiratory 22 Rate [Anterior Bilateral Throughout] Blood Pressure 90/48 104/78 O2 Sat by Pulse 97 95 Oximetry 11/14/17 11/14/17 11/14/17 03:00 03:13 03:30 Temperature Pulse Rate 72 77 75 Pulse Rate [ Anterior Bilateral Throughout] Pulse Rate [ Apical] Pulse Rate [ Radial] Respiratory Rate Respiratory Rate [Anterior Bilateral Throughout] Blood Pressure 105/49 105/49 121/59 O2 Sat by Pulse 93 96 96 Oximetry 11/14/17 11/14/17 11/14/17 03:43 04:00 04:31 Temperature 99.8 F H Pulse Rate 65 66 Pulse Rate [ Anterior Bilateral Throughout] Pulse Rate [ Apical] Pulse Rate [ 106 H Radial] Respiratory Rate Respiratory Rate [Anterior Bilateral Throughout] Blood Pressure 116/47 116/47 O2 Sat by Pulse 96 97 Oximetry 11/14/17 11/14/17 11/14/17 05:01 05:31 06:00 Temperature Pulse Rate 79 80 70 Pulse Rate [ Anterior Bilateral Throughout] Pulse Rate [ Apical] Pulse Rate [ 104 H Radial] Respiratory Rate Respiratory Rate [Anterior Bilateral Throughout] Blood Pressure 98/65 118/63 121/64 O2 Sat by Pulse 96 96 98 Oximetry 11/14/17 11/14/17 11/14/17 06:30 07:00 07:30 Temperature Pulse Rate 70 61 57 L Pulse Rate [ Anterior Bilateral Throughout] Pulse Rate [ Apical] Pulse Rate [ Radial] Respiratory Rate Respiratory Rate [Anterior Bilateral Throughout] Blood Pressure 111/58 108/66 123/57 O2 Sat by Pulse 97 97 97 Oximetry 11/14/17 11/14/17 11/14/17 08:36 09:52 09:54 Temperature Pulse Rate 54 L 54 L Pulse Rate [ Anterior Bilateral Throughout] Pulse Rate [ 70 Apical] Pulse Rate [ Radial] Respiratory 20 Rate Respiratory Rate [Anterior Bilateral Throughout] Blood Pressure 141/79 141/79 O2 Sat by Pulse 98 Oximetry 11/14/17 09:55 Temperature Pulse Rate 54 L Pulse Rate [ Anterior Bilateral Throughout] Pulse Rate [ Apical] Pulse Rate [ Radial] Respiratory Rate Respiratory Rate [Anterior Bilateral Throughout] Blood Pressure 141/79 O2 Sat by Pulse Oximetry Constitutional: appears uncomfortable, other (somnolent) Eyes: non-icteric, other (moderate proptosis) ENT: oropharynx moist, other (intubated) Neck: supple, no lymphadenopathy, no JVD, other (no thyromegaly; large neck circumference) Effort: mildly labored Ascultation: Bilateral: diminished breath sounds, rales Percussion: Bilateral: not dull Cardiovascular: regular rate and rhythm, other (no rubs or murmurs) Gastrointestinal: normoactive bowel sounds, soft, non-tender, non-distended, other (no palpable HSM) Integumentary: rash (stasis dermatitis) Extremities: no cyanosis, pulses normal, no ischemia or petechiae Neurologic: normal mental status, non-focal exam, pupils equal and round, CN II- XII normal, other (mild proptosis) Psychiatric: anxious CBC and BMP: 11/15/17 03:41 11/15/17 05:10 ABG, PT/INR, D-dimer: ABG POC ABG pH 7.480 (7.35-7.45) H 11/14/17 03:19 POC ABG pCO2 43.3 (35-45) 11/14/17 03:19 POC ABG pO2 61 (80-105) L 11/14/17 03:19 POC ABG HCO3 32.3 11/14/17 03:19 POC ABG Total CO2 34 11/14/17 03:19 POC ABG O2 Sat 92 11/14/17 03:19 Abnormal lab findings: Abnormal Labs 11/13/17 11/13/17 11/13/17 09:18 09:18 09:18 WBC 12.6 H Hct 44.1 H RDW 16.0 H Seg Neuts % (Manual) 78.0 H Lymphocytes % (Manual) 13.0 L Monocytes % (Manual) 8.0 H Seg Neutrophils # Man 9.8 H Monocytes # (Manual) 1.0 H POC ABG pH POC ABG pCO2 POC ABG pO2 Chloride 94.0 L Carbon Dioxide 32 H BUN Creatinine 0.6 L Glucose 190 H POC Glucose Total Creatine Kinase Troponin T NT-Pro-B Natriuret Pep 522.9 H Cholesterol HDL Cholesterol 11/13/17 11/13/17 11/13/17 09:18 10:53 12:02 WBC Hct RDW Seg Neuts % (Manual) Lymphocytes % (Manual) Monocytes % (Manual) Seg Neutrophils # Man Monocytes # (Manual) POC ABG pH 7.098 L POC ABG pCO2 118.3 H POC ABG pO2 112 H Chloride Carbon Dioxide BUN Creatinine Glucose POC Glucose Total Creatine Kinase 143 H Troponin T 0.047 H 0.087 H D NT-Pro-B Natriuret Pep Cholesterol 208 H HDL Cholesterol 79 H 11/13/17 11/13/17 11/13/17 13:45 16:31 17:54 WBC Hct RDW Seg Neuts % (Manual) Lymphocytes % (Manual) Monocytes % (Manual) Seg Neutrophils # Man Monocytes # (Manual) POC ABG pH 7.143 L 7.114 L POC ABG pCO2 98.8 H 108.1 H POC ABG pO2 55 L Chloride Carbon Dioxide BUN Creatinine Glucose POC Glucose Total Creatine Kinase Troponin T 0.077 H NT-Pro-B Natriuret Pep Cholesterol HDL Cholesterol 11/13/17 11/13/17 11/14/17 17:56 18:06 03:19 WBC Hct RDW Seg Neuts % (Manual) Lymphocytes % (Manual) Monocytes % (Manual) Seg Neutrophils # Man Monocytes # (Manual) POC ABG pH 7.480 H POC ABG pCO2 51.2 H POC ABG pO2 154 H 61 L Chloride Carbon Dioxide BUN Creatinine Glucose POC Glucose 137 H Total Creatine Kinase Troponin T NT-Pro-B Natriuret Pep Cholesterol HDL Cholesterol 11/14/17 03:55 WBC Hct RDW Seg Neuts % (Manual) Lymphocytes % (Manual) Monocytes % (Manual) Seg Neutrophils # Man Monocytes # (Manual) POC ABG pH POC ABG pCO2 POC ABG pO2 Chloride 93.4 L Carbon Dioxide BUN 26 H Creatinine 1.3 H D Glucose 164 H POC Glucose Total Creatine Kinase Troponin T NT-Pro-B Natriuret Pep Cholesterol HDL Cholesterol Chest x-ray: image reviewed (hypoventilation with crowded vascular markings; ETT in good position) Allied health notes reviewed: nursing
--- NOTE | 2017-11-14 14:34 | Progress Note ---
Assessment and Plan Acute hypercapnic respiratory failure Acute metabolic encephalopathy, from hypercapnea Acute exacerbation of asthma Hypertensive malignancy, on admission now normotensive Elevated troponin SIRS, with mild leukocytosis, tachycardia and tachypnea h/o CVA Morbid obesity - - We'll monitor the patient to ICU, Wean off vent as tolerated - Will provide scheduled nebulizers breathing treatment - cont on empiric steroid and antibiotic - Consulted pulmonary for vent management - We'll cont on sliding scale of insulin as patient will be on empiric steroid - preserved EF on 2d ceho, cardiology following - cont TF for now - Provide DVT prophylaxis with Lovenox. PPI for GI Px The high probability of a clinically significant, sudden or life threatening deterioration of the system(s) required my full and direct attention, intervention and personal management. The aggregate critical care time was [45] minutes. This time is in addition to time spent performing reported procedures but includes the following: [x] Data Review and interpretation [x] Patient assessment and monitoring of vital signs [x] Documentation [x] Medication orders and management Subjective Date of service: 11/14/17 Principal diagnosis: respiratory failure Interval history: pt seen and examined Remained intubated and sedated Objective - Exam Narrative Exam: GENERAL: well-developed morbidly obese -Chinese female lying on bed on vent HEENT: Normocephalic. Atraumatic. No conjunctival congestion or icterus. Patient has moist mucous membranes. NECK: Supple. Trachea midline. ET on place CHEST/LUNGS: Wheezes auscultated bilaterally, breathing on vent . HEART/CARDIOVASCULAR: tachycardic. S1 and S2 positive. ABDOMEN: Abdomen is soft, nontender. Patient has normal bowel sounds. SKIN: There is no rash. Warm and dry. NEURO: sedated MUSCULOSKELETAL: No joint effusion or tenderness. EXTRIMITY: No edema, no cyanosis or clubbing. PSYCH: Unable to assess. - Constitutional Vitals: Vital Signs - 12hr 11/14/17 11/14/17 11/14/17 02:48 03:00 03:13 Temperature Pulse Rate 72 77 Pulse Rate [ 76 Anterior Bilateral Throughout] Pulse Rate [ Apical] Pulse Rate [ Radial] Respiratory Rate Respiratory 22 Rate [Anterior Bilateral Throughout] Blood Pressure 105/49 105/49 O2 Sat by Pulse 93 96 Oximetry 11/14/17 11/14/17 11/14/17 03:30 03:43 04:00 Temperature 99.8 F H Pulse Rate 75 65 Pulse Rate [ Anterior Bilateral Throughout] Pulse Rate [ Apical] Pulse Rate [ 106 H Radial] Respiratory Rate Respiratory Rate [Anterior Bilateral Throughout] Blood Pressure 121/59 116/47 O2 Sat by Pulse 96 96 Oximetry 11/14/17 11/14/17 11/14/17 04:31 05:01 05:31 Temperature Pulse Rate 66 79 80 Pulse Rate [ Anterior Bilateral Throughout] Pulse Rate [ Apical] Pulse Rate [ Radial] Respiratory Rate Respiratory Rate [Anterior Bilateral Throughout] Blood Pressure 116/47 98/65 118/63 O2 Sat by Pulse 97 96 96 Oximetry 11/14/17 11/14/17 11/14/17 06:00 06:30 07:00 Temperature Pulse Rate 70 70 61 Pulse Rate [ Anterior Bilateral Throughout] Pulse Rate [ Apical] Pulse Rate [ 104 H Radial] Respiratory Rate Respiratory Rate [Anterior Bilateral Throughout] Blood Pressure 121/64 111/58 108/66 O2 Sat by Pulse 98 97 97 Oximetry 11/14/17 11/14/17 11/14/17 07:30 08:01 08:31 Temperature Pulse Rate 57 L 69 76 Pulse Rate [ Anterior Bilateral Throughout] Pulse Rate [ Apical] Pulse Rate [ Radial] Respiratory Rate Respiratory Rate [Anterior Bilateral Throughout] Blood Pressure 123/57 130/70 153/130 O2 Sat by Pulse 97 99 97 Oximetry 11/14/17 11/14/17 11/14/17 08:36 08:50 09:00 Temperature Pulse Rate 69 71 Pulse Rate [ Anterior Bilateral Throughout] Pulse Rate [ 70 Apical] Pulse Rate [ Radial] Respiratory 20 Rate Respiratory Rate [Anterior Bilateral Throughout] Blood Pressure 147/83 147/83 O2 Sat by Pulse 98 98 98 Oximetry 11/14/17 11/14/17 11/14/17 09:31 09:52 09:54 Temperature Pulse Rate 55 L 54 L 54 L Pulse Rate [ Anterior Bilateral Throughout] Pulse Rate [ Apical] Pulse Rate [ Radial] Respiratory Rate Respiratory Rate [Anterior Bilateral Throughout] Blood Pressure 141/79 141/79 141/79 O2 Sat by Pulse 97 Oximetry 11/14/17 11/14/17 11/14/17 09:55 10:00 10:30 Temperature Pulse Rate 54 L 56 L 55 L Pulse Rate [ Anterior Bilateral Throughout] Pulse Rate [ 56 L Apical] Pulse Rate [ 56 L Radial] Respiratory 12 Rate Respiratory Rate [Anterior Bilateral Throughout] Blood Pressure 141/79 129/84 137/87 O2 Sat by Pulse 98 99 Oximetry 11/14/17 11/14/17 11/14/17 11:01 11:30 12:00 Temperature Pulse Rate 56 L 55 L 55 L Pulse Rate [ Anterior Bilateral Throughout] Pulse Rate [ 56 L Apical] Pulse Rate [ 56 L Radial] Respiratory 12 20 Rate Respiratory Rate [Anterior Bilateral Throughout] Blood Pressure 129/84 135/89 122/70 O2 Sat by Pulse 98 98 98 Oximetry 11/14/17 11/14/17 12:31 12:43 Temperature Pulse Rate 81 72 Pulse Rate [ Anterior Bilateral Throughout] Pulse Rate [ Apical] Pulse Rate [ Radial] Respiratory 19 Rate Respiratory Rate [Anterior Bilateral Throughout] Blood Pressure 125/66 125/66 O2 Sat by Pulse 97 Oximetry - Labs CBC & Chem 7: 11/13/17 09:18 11/14/17 03:55 Labs: Abnormal lab results 11/13/17 11/13/17 11/13/17 Range/Units 16:31 17:54 17:56 D-Dimer (0-234) ng/mlDDU POC ABG pH 7.114 L (7.35-7.45) POC ABG pCO2 108.1 H 51.2 H (35-45) POC ABG pO2 55 L 154 H (80-105) Chloride (98-107) mmol/L BUN (7-17) mg/dL Creatinine (0.7-1.2) mg/dL Glucose (65-100) mg/dL POC Glucose (70-105) Troponin T 0.077 H (0.00-0.029) ng/mL 11/13/17 11/14/17 11/14/17 Range/Units 18:06 03:19 03:55 D-Dimer (0-234) ng/mlDDU POC ABG pH 7.480 H (7.35-7.45) POC ABG pCO2 (35-45) POC ABG pO2 61 L (80-105) Chloride 93.4 L (98-107) mmol/L BUN 26 H (7-17) mg/dL Creatinine 1.3 H D (0.7-1.2) mg/dL Glucose 164 H (65-100) mg/dL POC Glucose 137 H (70-105) Troponin T (0.00-0.029) ng/mL 11/14/17 11/14/17 Range/Units 11:20 11:59 D-Dimer 494.15 H (0-234) ng/mlDDU POC ABG pH (7.35-7.45) POC ABG pCO2 (35-45) POC ABG pO2 (80-105) Chloride (98-107) mmol/L BUN (7-17) mg/dL Creatinine (0.7-1.2) mg/dL Glucose (65-100) mg/dL POC Glucose 120 H (70-105) Troponin T (0.00-0.029) ng/mL
[2017-11-14] MEDS: PEPCID PO SCH ×2 (14:36→22:06)
[2017-11-14] MEDS: LASIX IV SCH (17:22)
[2017-11-15] MEDS: D5NS 1,000 ML IV SCH
[2017-11-15] MEDS: DUONEB *Not for PRN Use IH SCH ×4 (02:11→20:09)
[2017-11-15] MEDS: APRESOLINE IV PRN (02:43)
--- NOTE | 2017-11-15 02:53 | XRay Report ---
FINAL REPORT PROCEDURE: XR CHEST 1V AP TECHNIQUE: Chest radiograph anteroposterior view. CPT 78106 HISTORY: follow up respiratory failure COMPARISON: No prior studies are available for comparison. FINDINGS: Heart is enlarged. There is bilateral pulmonary edema. There are small pleural effusions. There is no pneumothorax. The endotracheal tube is in the mid trachea. NG tube is in the stomach. The bony and soft tissue structures are normal. IMPRESSION: Cardiomegaly. There is increased pulmonary edema and pleural effusion compared to prior study. The ET tube is in the mid trachea.. NG tube is in the stomach.
[2017-11-15] MEDS: fentaNYL DRIP Premix 2,000 MCG/100 ML BAG IV SCH ×2 (03:07→21:27)
[2017-11-15 04:47] LABS: Hematocrit 44.9 % (30.3-42.9); Mean Corpuscular HGB Conc 31 % (30-34); Mean Corpuscular Hemoglobin 29 pg (28-32); Mean Corpuscular Volume 94 fl (79-97); Red Cell Distribution Width 16.8 % (13.2-15.2)
[2017-11-15 04:49] LABS: Platelet Count 207 K/mm3 (140-440)
[2017-11-15 05:08] LABS: BUN/Creatinine Ratio TNR; Blood Urea Nitrogen TNR mg/dL (7-17)
[2017-11-15 05:09] LABS: Calcium TNR mg/dL (8.4-10.2); Hemolysis Index TNR
[2017-11-15 05:48] LABS: Calcium 8.1 mg/dL (8.4-10.2)
[2017-11-15] MEDS: LASIX IV SCH (06:00)
[2017-11-15] MEDS ORDERED: ISORDIL TITRADOSE PO SCH (08:00)
--- NOTE | 2017-11-15 08:51 | Consultation ---
History of Present Illness - Reason for Consult Consult date: 11/15/17 acute renal failure, hyperkalemia - History of Present Illness The patient is a 47-year-old AAF with medical history significant for Asthma with history of previous intubation, Hypertension, Morbid Obesity, Borderline DM and CVA 2 months ago who was brought into the ER by EMS with AMS and hypoxia. EMS found her cyanotic with O2 sat between 30-40% on room air. In the ER ABG shows pH 7.098, pO2 112, CO2 118, HCO3 36, CXR shows mild HF, BP was upto 220/118. Creatinine increased from 0.6 from admission to 1.7 today with potassium of 5.7. BP is intermittently low. Unable to obtain a detailed history at this time as patient is intubated. Past History Past Medical History: diabetes, hypertension, stroke, other (asthma) Medications and Allergies Allergies Allergy/AdvReac Type Severity Reaction Status Date / Time No Known Allergies Allergy Unverified 08/13/16 02:37 Home Medications Medication Instructions Recorded Confirmed Last Taken Type Losartan [Cozaar] 100 mg PO QDAY #30 tablet 12/05/16 11/13/17 Unknown Rx hydrALAZINE [Apresoline TAB] 100 mg PO TID #90 tab 12/05/16 11/13/17 Unknown Rx Furosemide [Lasix TAB] 40 mg PO QDAY 11/13/17 11/13/17 Unknown History Metformin HCl 1,000 mg PO BID 11/13/17 11/13/17 Unknown History Potassium Chloride [K-Dur] 10 meq PO QDAY 11/13/17 11/13/17 Unknown History Active Meds: Active Medications Albuterol/Ipratropium (Duoneb *Not For Prn Use*) 1 ampul IH Q6HRT [facility] Last Admin: 11/15/17 08:41 Dose: 1 ampul Amlodipine Besylate (Norvasc) 10 mg PO QDAY [facility] Last Admin: 11/14/17 09:55 Dose: Not Given Lipase/Protease/Amylase (Lizbet Kelly 10,500 Unit) 1 each FEEDTUBE PRN PRN PRN Reason: For Clogged Feeding Tube Aspirin (Halfprin Ec) 81 mg PO DAILY [facility] Last Admin: 11/14/17 09:54 Dose: 81 mg Enoxaparin Sodium (Lovenox) 40 mg SUB-Q QDAY [facility] Last Admin: 11/14/17 09:51 Dose: 40 mg Famotidine (Pepcid) 20 mg PO BID [facility] Last Admin: 11/14/17 22:06 Dose: 20 mg Hydralazine HCl (Apresoline) 100 mg PO TID [facility] Last Admin: 11/14/17 20:27 Dose: Not Given Hydralazine HCl (Apresoline) 5 mg IV Q30MIN PRN PRN Reason: Hypertension Last Admin: 11/15/17 02:43 Dose: 5 mg Hydrophilic Ointment (Vaseline Lip Therapy) 1 applic TP Q2HR PRN PRN Reason: Dry Lips Fentanyl Citrate (Fentanyl Drip Premix) 2,000 mcg in 100 mls @ 6.804 mls/hr IV TITR [facility]; Protocol Last Titration: 11/14/17 07:49 Dose: Infused Dextrose/Sodium Chloride (D5ns) 1,000 mls @ 75 mls/hr IV DIRECT [facility] Last Admin: 11/15/17 00:00 Dose: 75 mls/hr Insulin Human Regular (Humulin R) 0 units SUB-Q Q6HR [facility]; Protocol Isosorbide Dinitrate (Isordil Titradose) 20 mg PO TID [facility] Losartan Potassium (Cozaar) 100 mg PO QDAY [facility] Last Admin: 11/14/17 09:54 Dose: Not Given Methylprednisolone Sodium Succinate (Solu-Medrol) 40 mg IV Q8H [facility] Metoclopramide HCl (Reglan) 10 mg PO Q6H PRN PRN Reason: Nausea And Vomiting Metoprolol Tartrate (Lopressor) 50 mg PO BID [facility] Last Admin: 11/14/17 22:11 Dose: 50 mg Multi-Ingred Cream/Lotion/Oil/Oint (Artificial Tears Ophth Oint) 1 applic OU Q4HR PRN PRN Reason: Dry Eye(s) Simple Syrup (Simple Syrup) 15 ml FEEDTUBE PRN PRN PRN Reason: Hypoglycemia Simple Syrup (Simple Syrup) 30 ml FEEDTUBE PRN PRN PRN Reason: Hypoglycemia Sodium Bicarbonate (Sodium Bicarbonate) 325 mg FEEDTUBE PRN PRN PRN Reason: For Clogged Feeding Tube Sodium Chloride (Nacl 0.9% 500 Ml) 1 ml IV DIRECT [facility] Sodium Polystyrene Sulfonate (Kionex) 15 gm PO Q6HR PRN PRN Reason: Hyperkalemia Review of Systems ROS unobtainable: due to mental status (patient is intubated, on vent) Exam - Vital Signs Vital signs: Vital Signs Pulse Ox 63 L 11/13/17 09:02 - General Appearance General appearance: well-developed, well-nourished, appears stated age, obese, intubated (FiO2 50%), other (no distress) EENT: ATNC, PERRL, hearing intact, vision intact Neck: Present: neck supple, trachea midline Respiratory: Clear to Ascultation Heart: regular, S1S2, no murmurs Gastrointestinal: Present: normoactive bowel sounds. Absent: tenderness, distended Integumentary: no rash, warm and dry Neurologic: no focal deficit, no asterixis Musculoskeletal: Present: other (no edema) Psychiatric: cooperative Results - Lab Results 11/15/17 03:41 11/15/17 05:10 Most recent lab results Calcium 8.1 mg/dL (8.4-10.2) L 11/15/17 05:10 - Image Kidney/bladder ultrasound: pending Assessment and Plan 1. Acute kidney injury: Hemodynamic / Vasomotor mediated URIEL in the setting of low BP. Unbale to give IV fluids at this time due to worsening pulmonary edema. Recommend low dose Dopamine (n/a at this time per pharmacy). Start on Midodrine. Urine studies and Renal US. 2. Hyperkalemia: Kayexalate, Insulin Dextrose and IV Calcium. 3. Hypotension: Losartan and Amlodipine were stopped. 4. Volume overload: Stop IV fluids. 5. Respiratory failure: On vent.
[2017-11-15] MEDS ORDERED: KIONEX PO PRN (09:17)
[2017-11-15] MEDS ORDERED: D50W (25GM) Syringe IV ONE (09:22)
[2017-11-15] MEDS: APRESOLINE PO SCH (09:34)
--- NOTE | 2017-11-15 10:15 | Progress Note ---
Assessment and Plan Acute hypercapnic respiratory failure - likley from acute asthma exacerbation and worsening pulmonary edema? -We'll monitor the patient to ICU, Wean off vent as tolerated - Will provide scheduled nebulizers breathing treatment - cont on empiric steroid and antibiotic - Consulted pulmonary for vent management b/L pulmonary edema vs INEZ - Cxr today showed worsening pulmonary edema and pleural effusion - cont lasix for now - will foloow pulmonary recommendation Acute metabolic encephalopathy, from hypercapnea - pt is at her baseline now when off sedation and can communicate with writting Acute exacerbation of asthma - cont scheduled nebulizers breathing treatment, empiric steroid and antibiotic Hypertensive malignancy, on admission now normo to hypotensive - placed on home medications following admission but never received - stopped all meds today for low BP Elevated troponin - cardiology following, preserved EF on 2D ceho SIRS, with mild leukocytosis, tachycardia and tachypnea - likely from acute asthma exacerbation h/o CVA - aspirin statin for now [place] - likely from hypotensive episodes, Cr 1.8 today - hold all BP meds, nephrology consulted hyperkalemia, K 5.7 - ordered hyperkalemia cocktail Morbid obesity - recreation counselor when medically stable FEN - cont TF for now, hold iv fluid for worsening pulmonary edema - Provide DVT prophylaxis with Lovenox. PPI for GI Px The high probability of a clinically significant, sudden or life threatening deterioration of the system(s) required my full and direct attention, intervention and personal management. The aggregate critical care time was [45] minutes. This time is in addition to time spent performing reported procedures but includes the following: [x] Data Review and interpretation [x] Patient assessment and monitoring of vital signs [x] Documentation [x] Medication orders and management Physical Exam: GENERAL: well-developed morbidly obese -[place] female lying on bed on vent HEENT: Normocephalic. Atraumatic. No conjunctival congestion or icterus. Patient has moist mucous membranes. NECK: Supple. Trachea midline. ET on place CHEST/LUNGS: Wheezes auscultated bilaterally, breathing on vent . HEART/CARDIOVASCULAR: tachycardic. S1 and S2 positive. ABDOMEN: Abdomen is soft, nontender. Patient has normal bowel sounds. SKIN: There is no rash. Warm and dry. NEURO: communicates with writing, no focal deficit MUSCULOSKELETAL: No joint effusion or tenderness. EXTRIMITY: No edema, no cyanosis or clubbing. PSYCH: cooperative. Subjective Date of service: 11/15/17 Principal diagnosis: Acute Hypoxemic Hypercapnic respiratory failure; Acute Encephalopathy; HTN Interval history: pt seen and examined Remained intubated but communicates with writing Family member at bedside Objective - Constitutional Vitals: Vital Signs - 12hr 11/14/17 11/14/17 11/14/17 22:11 22:30 23:00 Temperature Pulse Rate 65 64 51 L Pulse Rate [ Anterior Bilateral Throughout] Pulse Rate [ Anterior Left Throughout] Respiratory 14 14 Rate Respiratory Rate [Anterior Bilateral Throughout] Respiratory Rate [Anterior Left Throughout ] Blood Pressure 136/65 119/70 119/67 O2 Sat by Pulse 93 95 Oximetry 11/14/17 11/14/17 11/14/17 23:30 23:53 23:55 Temperature 97.8 F Pulse Rate 51 L 51 L Pulse Rate [ Anterior Bilateral Throughout] Pulse Rate [ Anterior Left Throughout] Respiratory 12 11 L Rate Respiratory Rate [Anterior Bilateral Throughout] Respiratory Rate [Anterior Left Throughout ] Blood Pressure 119/71 119/71 O2 Sat by Pulse 95 95 Oximetry 11/15/17 11/15/17 11/15/17 00:00 00:03 00:30 Temperature Pulse Rate 60 50 L 48 L Pulse Rate [ Anterior Bilateral Throughout] Pulse Rate [ Anterior Left Throughout] Respiratory 12 15 11 L Rate Respiratory Rate [Anterior Bilateral Throughout] Respiratory Rate [Anterior Left Throughout ] Blood Pressure 119/67 117/72 105/64 O2 Sat by Pulse 94 95 97 Oximetry 11/15/17 11/15/17 11/15/17 01:00 01:30 02:01 Temperature Pulse Rate 46 L 48 L 102 H Pulse Rate [ Anterior Bilateral Throughout] Pulse Rate [ Anterior Left Throughout] Respiratory 12 14 10 L Rate Respiratory Rate [Anterior Bilateral Throughout] Respiratory Rate [Anterior Left Throughout ] Blood Pressure 106/55 108/61 155/74 O2 Sat by Pulse 96 96 94 Oximetry 11/15/17 11/15/17 11/15/17 02:11 02:26 02:31 Temperature Pulse Rate 115 H Pulse Rate [ 111 H Anterior Bilateral Throughout] Pulse Rate [ 109 H Anterior Left Throughout] Respiratory 15 Rate Respiratory 17 Rate [Anterior Bilateral Throughout] Respiratory 17 Rate [Anterior Left Throughout ] Blood Pressure 216/91 O2 Sat by Pulse 94 Oximetry 11/15/17 11/15/17 11/15/17 02:43 03:00 03:30 Temperature Pulse Rate 103 H 119 H 105 H Pulse Rate [ Anterior Bilateral Throughout] Pulse Rate [ Anterior Left Throughout] Respiratory 15 16 Rate Respiratory Rate [Anterior Bilateral Throughout] Respiratory Rate [Anterior Left Throughout ] Blood Pressure 167/112 161/102 169/82 O2 Sat by Pulse 94 95 Oximetry 11/15/17 11/15/17 11/15/17 03:46 04:00 04:31 Temperature 98.5 F Pulse Rate 101 H 85 69 Pulse Rate [ Anterior Bilateral Throughout] Pulse Rate [ Anterior Left Throughout] Respiratory 13 12 Rate Respiratory Rate [Anterior Bilateral Throughout] Respiratory Rate [Anterior Left Throughout ] Blood Pressure 169/82 164/69 89/36 O2 Sat by Pulse 96 94 95 Oximetry 11/15/17 11/15/17 11/15/17 04:32 05:00 05:30 Temperature 98.5 F Pulse Rate 53 L 54 L Pulse Rate [ Anterior Bilateral Throughout] Pulse Rate [ Anterior Left Throughout] Respiratory 14 26 H Rate Respiratory Rate [Anterior Bilateral Throughout] Respiratory Rate [Anterior Left Throughout ] Blood Pressure 77/28 86/34 O2 Sat by Pulse 93 96 Oximetry 11/15/17 11/15/17 11/15/17 06:00 06:31 07:00 Temperature Pulse Rate 50 L 75 70 Pulse Rate [ Anterior Bilateral Throughout] Pulse Rate [ Anterior Left Throughout] Respiratory 13 15 11 L Rate Respiratory Rate [Anterior Bilateral Throughout] Respiratory Rate [Anterior Left Throughout ] Blood Pressure 97/42 136/63 132/64 O2 Sat by Pulse 96 95 96 Oximetry 11/15/17 11/15/17 11/15/17 07:30 08:00 08:01 Temperature 98.0 F Pulse Rate 69 49 L 71 Pulse Rate [ Anterior Bilateral Throughout] Pulse Rate [ Anterior Left Throughout] Respiratory 12 16 Rate Respiratory Rate [Anterior Bilateral Throughout] Respiratory Rate [Anterior Left Throughout ] Blood Pressure 137/63 162/52 137/63 O2 Sat by Pulse 97 98 100 Oximetry 11/15/17 11/15/17 11/15/17 08:31 08:41 09:01 Temperature Pulse Rate 69 50 L Pulse Rate [ Anterior Bilateral Throughout] Pulse Rate [ 50 L Anterior Left Throughout] Respiratory 12 20 Rate Respiratory Rate [Anterior Bilateral Throughout] Respiratory 13 Rate [Anterior Left Throughout ] Blood Pressure 123/41 98/59 O2 Sat by Pulse 97 97 Oximetry - Labs CBC & Chem 7: 11/15/17 03:41 11/16/17 08:32 Labs: Abnormal lab results 11/14/17 11/14/17 11/14/17 Range/Units 11:20 11:59 16:10 WBC (4.5-11.0) K/mm3 Hct (30.3-42.9) % RDW (13.2-15.2) % D-Dimer 494.15 H (0-234) ng/mlDDU POC ABG pH (7.35-7.45) POC ABG pCO2 (35-45) Potassium (3.6-5.0) mmol/L Chloride (98-107) mmol/L BUN (7-17) mg/dL Creatinine (0.7-1.2) mg/dL Glucose (65-100) mg/dL POC Glucose 120 H 114 H (70-105) Calcium (8.4-10.2) mg/dL 11/14/17 11/15/17 11/15/17 Range/Units 21:41 03:41 04:02 WBC 13.6 H (4.5-11.0) K/mm3 Hct 44.9 H (30.3-42.9) % RDW 16.8 H (13.2-15.2) % D-Dimer (0-234) ng/mlDDU POC ABG pH 7.244 L (7.35-7.45) POC ABG pCO2 73.7 H (35-45) Potassium (3.6-5.0) mmol/L Chloride (98-107) mmol/L BUN (7-17) mg/dL Creatinine (0.7-1.2) mg/dL Glucose (65-100) mg/dL POC Glucose 160 H (70-105) Calcium (8.4-10.2) mg/dL 11/15/17 11/15/17 Range/Units 05:10 07:52 WBC (4.5-11.0) K/mm3 Hct (30.3-42.9) % RDW (13.2-15.2) % D-Dimer (0-234) ng/mlDDU POC ABG pH (7.35-7.45) POC ABG pCO2 (35-45) Potassium 5.7 H (3.6-5.0) mmol/L Chloride 97.8 L (98-107) mmol/L BUN 35 H (7-17) mg/dL Creatinine 1.8 H (0.7-1.2) mg/dL Glucose 175 H (65-100) mg/dL POC Glucose 125 H (70-105) Calcium 8.1 L (8.4-10.2) mg/dL
--- NOTE | 2017-11-15 10:38 | Progress Note ---
Assessment and Plan 12-lead ECG repeated - pt in sinus bradycardia. Do not recommend dopamine gtt at this time. Hold AV rancho blocking agents. Continue to monitor. Continue diuresis. Monitor renal indices. Continue supportive measures. The patient has been seen in conjunction with Dr. Corona who agrees with the assessment and plan of care. - Patient Problems (1) Acute respiratory failure Current Visit: Yes Status: Acute (2) CO2 narcosis Current Visit: Yes Status: Acute (3) (HFpEF) heart failure with preserved ejection fraction Current Visit: Yes Status: Acute (4) Hypertensive urgency Current Visit: Yes Status: Acute (5) Elevated troponin Current Visit: Yes (6) Asthma Current Visit: Yes Status: Chronic (7) History of CVA (cerebrovascular accident) Current Visit: Yes Status: Acute (8) Hyperlipidemia Current Visit: Yes Status: Chronic (9) Aortic stenosis Current Visit: Yes Status: Chronic (10) Morbid obesity Current Visit: Yes Status: Chronic Subjective Date of service: 11/15/17 Principal diagnosis: Acute Hypoxemic Hypercapnic respiratory failure; Acute Encephalopathy; HTN Interval history: pt intubated, on sedation, eyes open and responding appropriately. SB on telemetry with HR in 50s, BPs low normal. Objective Last Vital Signs Temp 98.0 F 11/15/17 08:00 Pulse 50 L 11/15/17 09:01 Resp 20 11/15/17 09:01 BP 98/59 11/15/17 09:01 Pulse Ox 97 11/15/17 09:01 - Physical Examination General: No Apparent Distress, Other (intubated) HEENT: Positive: PERRL, Normocephaly Neck: Positive: neck supple, trachea midline Cardiac: Positive: Reg Rate and Rhythm, S1/S2 Lungs: Positive: Decreased Breath Sounds Neuro: Positive: Grossly Intact, Other (intubated) Abdomen: Positive: Active Bowel Sounds Skin: Positive: Clear. Negative: Rash, Wound Musculoskeletal: No Pain, Normal Range of Motion Extremities: Present: edema (trace BLE) - Labs and Meds CBC 11/15/17 Range/Units 03:41 WBC 13.6 H (4.5-11.0) K/mm3 RBC 4.80 (3.65-5.03) M/mm3 Hgb 14.0 (10.1-14.3) gm/dl Hct 44.9 H (30.3-42.9) % Plt Count 207 (140-440) K/mm3 Comprehensive Metabolic Panel 11/15/17 11/15/17 Range/Units 03:41 05:10 Sodium TNR 141 Potassium TNR 5.7 H Chloride TNR 97.8 L Carbon Dioxide TNR 29 BUN TNR 35 H Creatinine TNR 1.8 H Glucose TNR 175 H Calcium TNR 8.1 L - Imaging and Cardiology EKG: report reviewed, image reviewed Echo: report reviewed Cardiac cath: report reviewed (11/2016 showed patent coronaries, hypertensive vessels, large epicardial vessels, mod to severe tortuosity of vessels, normal LV function. ) - EKG Sinus rhythms and dysrhythmias: sinus rhythm Chamber hypertrophy or enlargement: left ventricular hypertro Repolarization changes or abnormalities: repolarization abn secondary to ventricular hypertrophy - Allied health notes Allied health notes reviewed: nursing
[2017-11-15] MEDS ORDERED: KIONEX PO SCH (11:00)
[2017-11-15] MEDS ORDERED: CALCIUM GLUCONATE 1,000 MG in NACL 0.9% 100 ML IV ONE (11:00)
[2017-11-15] MEDS ORDERED: HumuLIN R IV ONE (11:00)
--- NOTE | 2017-11-15 11:39 | Query-Infection ---
Dear ____Marivel Date:___11/15/2017 [employer]ement Mason Apprentice/CDS:___Padmini Phone#:__[phone] Exercise your independent professional judgment when responding to this query. Questions asked do not imply a particular answer is desired or expected. We greatly appreciate your clarification on this issue. Clinical Documentation States: 47-year-old female was admitted on 11/13/2017 with alteration of mental status and hypoxia. The IM (Dr. Orta) progress note on 11/15/2017 states "Acute hypercapnic respiratory failure Acute metabolic encephalopathy, from hypercapnea Acute exacerbation of asthma Clinical findings show: (please check applicable parameters) WBC (11/13): 12.6 RR (11/13): 31 KS (11/13): 109 Infection, known /suspected, with some of the following indicators; Specify the infection: 3 General parameters [ ] Fever (core temp >38.30C or 100.40F) [ ] Hypothermia (core temp <36C) [X] Heart rate >90 bpm [X] Tachypnea: >20 bpm or pCO2 < 32 mmHg [X] Altered mental status [ ] Significant edema / +ve fluid balance (>20 ml/kg 24 h) [ ] Hyperglycemia (Bl. glucose >110 mg/dl) w/o diabetes Inflammatory parameters [X] Leukocytosis (white blood cell count >12,000/l) [ ] Leukopenia (white blood cell count <4,000/l) [ ] Bandemia (immature WBC > 10%) [ ] Leucocyte Left Shift [ ] Plasma procalcitonin>2 SD above the normal value Hemodynamic and tissue perfusion parameters [ ] Arterial hypotension(SBP <90 mmHg, MAP <70 mmHg,or a SBP drop >40 mmHg in adults) [ ] Hyperlactatemia (>3 mmol/l) [ ] Anion Gap (> 11mEG/l) [ ] Decreased capillary refill or mottling Organ dysfunction parameters [ ] Arterial hypoxemia (PaO2/FIO2 <300) [ ] Creatinine increase =0.5 mg/dl [ ] Acute oliguria (urine output <0.5 ml | kg |h or 45 mM/l for at least 2 hrs) [ ] Coagulation abnormalities (INR >1.5 or activated partial thromboplastin time >60 s) [ ] Ileus (absent marry wel sounds) [ ] Thrombocytopenia (platelet count <100,000/l) [ ] Hyperbilirubinemia (plasma total bilirubin >4 mg/dl) According to the clinical indications above, can Bacteremia be further specified? If so, please indicate below and in your Progress Notes and/ or Discharge Summary. Indicate if the condition was present on admission. PHYSICIAN RESPONSE: [ ] Sepsis [ ] Severe Sepsis [ ] Septic Shock [ ] Septicemia [ ] Sepsis now resolved [ ] SIRS due to non-infectious cause with organ dysfunction [ ] SIRS due to non-infectious cause without organ dysfunction [ ] Other: [ ] Comment/Explanation: Please see my H/p and progress note Present on Admission: [ ] Yes (Y) [ ] Clinically undeterminable (W) [ ] No ( N) [ ] Ruled Out Please also document response in your Progress Notes and/or Discharge Summary and indicate if the condition was present on admission Notes: SIRS/ SIRS WITH ORGAN DYSFUNCTION Systemic inflammatory response syndrome (SIRS) generally refers to the systemic response to trauma/cadet or other insult such as Acute Myocardial Infarction, Acute Pancreatitis, and Major Surgery with symptoms including fever, tachycardia , tachypnea, and leukocytosis (1). BACTEREMIA Presence of viable bacteria in the circulating blood (2). This term is reserved for patients that do not manifest above SIRS response. SEPTICEMIA Generally refers to a systemic disease associated with the presence of pathological microorganisms or toxins in the blood, which can include bacteria, viruses, fungi or other organisms (1). SEPSIS Generally refers to SIRS due infection (1). SEVERE SEPSIS Generally refers to sepsis associated with acute organ dysfunction (1). SEPTIC SHOCK Generally refers to circulatory failure associated with severe sepsis (2), and defined as hypotension or hypoperfusion despite adequate fluid resuscitation (1 hour) (3). REFERENCES: 1. [place] [employer]/Society of Critical Care Medicine Consensus Conference. Definitions for sepsis and organ failure and guidelines for the use of innovative therapies in sepsis. Critical Care Med 1992;20:864 - 74. 2. Yefri coronado MM, Ethan MP, Jovani ORALIA, Pato E, Ronak D, Ruperto D, Adair J, Dresden SM , Caio JL, Nury G; International Sepsis Definitions Conference. 2001 SCCM/ESICM/ACCP/ATS/SIS International Sepsis Definitions Conference. Intensive Care Med. 2002;29(4):530-8. Epub 2002Oct 23. Review. PubMed PMID:[id number] 3. ICD-9-CM Official Guidelines for Coding and Reporting 4. Medscape Drugs, Diseases and Procedures references 5. [employer] Textbook of Internal Medicine. 18th Edition MTDD
[2017-11-15] MEDS: HumuLIN R SUB-Q SCH (12:00)
[2017-11-15] MEDS: HALFPRIN EC PO SCH (12:21)
[2017-11-15] MEDS: PEPCID PO SCH ×2 (12:21→21:26)
--- NOTE | 2017-11-15 12:39 | Progress Note ---
Assessment and Plan Acute hypercapnic hypoxemic respiratory failure Acute metabolic encephalopathy Hypertensive Urgency Acute exacerbation of asthma Morbid obesity Elevated troponin SIRS URIEL - continue MVS, reduce set rate and attempt SBT's if tolerates reduced minute ventilation - avoid oversedation - continue bronchodilators with pulmonary hygiene per RT - continue lung protective strategies - continue empiric Antibiotics; follow microbiology and clinically for de- escalation - continue systemic steroids - diuretics to be held re: Azotemia - enteral nutrion as tolerated - continue accucheck with glycemic control per SSI - continue GI & VTE prophylaxis - ACS w/up, Serial troponins, 2D echocardiogram per cardiology (follow 2D ECHO report re: CHF vs ARDS issues) - continue other care per attending / other consultants ..... case discussed at length during rounds and care plan formulated ... 35' CCT Subjective Date of service: 11/15/17 Principal diagnosis: Acute Hypoxemic Hypercapnic respiratory failure; Acute Encephalopathy; HTN Interval history: Patient is seen today for: Acute Hypoxemic Hypercapnic respiratory failure; Acute Encephalopathy; HTN Seen and examined at bedside; 24hour events reviewed; nursing and respiratory care staff consulted; no adverse overnight events reported to me; remains on MVS ; remains anxious; morning ABG with worsening hypercapnia however also sedated and not overbreathing set rate of 12; No N/V/F/C; oropharyngeal secretions moderate Objective Vital Signs - 12hr 11/15/17 11/15/17 11/15/17 01:00 01:30 02:01 Temperature Pulse Rate 46 L 48 L 102 H Pulse Rate [ Anterior Bilateral Throughout] Pulse Rate [ Anterior Left Throughout] Respiratory 12 14 10 L Rate Respiratory Rate [Anterior Bilateral Throughout] Respiratory Rate [Anterior Left Throughout ] Blood Pressure 106/55 108/61 155/74 O2 Sat by Pulse 96 96 94 Oximetry 11/15/17 11/15/17 11/15/17 02:11 02:26 02:31 Temperature Pulse Rate 115 H Pulse Rate [ 111 H Anterior Bilateral Throughout] Pulse Rate [ 109 H Anterior Left Throughout] Respiratory 15 Rate Respiratory 17 Rate [Anterior Bilateral Throughout] Respiratory 17 Rate [Anterior Left Throughout ] Blood Pressure 216/91 O2 Sat by Pulse 94 Oximetry 11/15/17 11/15/17 11/15/17 02:43 03:00 03:30 Temperature Pulse Rate 103 H 119 H 105 H Pulse Rate [ Anterior Bilateral Throughout] Pulse Rate [ Anterior Left Throughout] Respiratory 15 16 Rate Respiratory Rate [Anterior Bilateral Throughout] Respiratory Rate [Anterior Left Throughout ] Blood Pressure 167/112 161/102 169/82 O2 Sat by Pulse 94 95 Oximetry 11/15/17 11/15/17 11/15/17 03:46 04:00 04:31 Temperature 98.5 F Pulse Rate 101 H 85 69 Pulse Rate [ Anterior Bilateral Throughout] Pulse Rate [ Anterior Left Throughout] Respiratory 13 12 Rate Respiratory Rate [Anterior Bilateral Throughout] Respiratory Rate [Anterior Left Throughout ] Blood Pressure 169/82 164/69 89/36 O2 Sat by Pulse 96 94 95 Oximetry 11/15/17 11/15/17 11/15/17 04:32 05:00 05:30 Temperature 98.5 F Pulse Rate 53 L 54 L Pulse Rate [ Anterior Bilateral Throughout] Pulse Rate [ Anterior Left Throughout] Respiratory 14 26 H Rate Respiratory Rate [Anterior Bilateral Throughout] Respiratory Rate [Anterior Left Throughout ] Blood Pressure 77/28 86/34 O2 Sat by Pulse 93 96 Oximetry 11/15/17 11/15/17 11/15/17 06:00 06:31 07:00 Temperature Pulse Rate 50 L 75 70 Pulse Rate [ Anterior Bilateral Throughout] Pulse Rate [ Anterior Left Throughout] Respiratory 13 15 11 L Rate Respiratory Rate [Anterior Bilateral Throughout] Respiratory Rate [Anterior Left Throughout ] Blood Pressure 97/42 136/63 132/64 O2 Sat by Pulse 96 95 96 Oximetry 11/15/17 11/15/17 11/15/17 07:30 08:00 08:01 Temperature 98.0 F Pulse Rate 69 49 L 71 Pulse Rate [ Anterior Bilateral Throughout] Pulse Rate [ Anterior Left Throughout] Respiratory 12 16 Rate Respiratory Rate [Anterior Bilateral Throughout] Respiratory Rate [Anterior Left Throughout ] Blood Pressure 137/63 162/52 137/63 O2 Sat by Pulse 97 98 100 Oximetry 11/15/17 11/15/17 11/15/17 08:31 08:41 09:01 Temperature Pulse Rate 69 50 L Pulse Rate [ Anterior Bilateral Throughout] Pulse Rate [ 50 L Anterior Left Throughout] Respiratory 12 20 Rate Respiratory Rate [Anterior Bilateral Throughout] Respiratory 13 Rate [Anterior Left Throughout ] Blood Pressure 123/41 98/59 O2 Sat by Pulse 97 97 Oximetry Constitutional: appears uncomfortable, other (somnolent) Eyes: non-icteric, other (moderate proptosis) ENT: oropharynx moist, other (intubated) Neck: supple, no lymphadenopathy, no JVD, other (no thyromegaly; large neck circumference) Effort: mildly labored Ascultation: Bilateral: diminished breath sounds, rales Percussion: Bilateral: not dull Cardiovascular: regular rate and rhythm, other (no rubs or murmurs) Gastrointestinal: normoactive bowel sounds, soft, non-tender, non-distended, other (no palpable HSM) Integumentary: rash (stasis dermatitis) Extremities: no cyanosis, pulses normal, no ischemia or petechiae Neurologic: normal mental status, non-focal exam, pupils equal and round, CN II- XII normal, other (mild proptosis) Psychiatric: anxious CBC and BMP: 11/15/17 03:41 11/15/17 05:10 ABG, PT/INR, D-dimer: ABG POC ABG pH 7.244 (7.35-7.45) L 11/15/17 04:02 POC ABG pCO2 73.7 (35-45) H 11/15/17 04:02 POC ABG pO2 82 (80-105) 11/15/17 04:02 POC ABG HCO3 31.9 11/15/17 04:02 POC ABG Total CO2 34 11/15/17 04:02 POC ABG O2 Sat 93 11/15/17 04:02 PT/INR, D-dimer D-Dimer 494.15 ng/mlDDU (0-234) H 11/14/17 11:20 Abnormal lab findings: Abnormal Labs 11/13/17 11/13/17 11/13/17 09:18 09:18 09:18 WBC 12.6 H Hct 44.1 H RDW 16.0 H Seg Neuts % (Manual) 78.0 H Lymphocytes % (Manual) 13.0 L Monocytes % (Manual) 8.0 H Seg Neutrophils # Man 9.8 H Monocytes # (Manual) 1.0 H D-Dimer POC ABG pH POC ABG pCO2 POC ABG pO2 Potassium Chloride 94.0 L Carbon Dioxide 32 H BUN Creatinine 0.6 L Glucose 190 H POC Glucose Calcium Total Creatine Kinase Troponin T NT-Pro-B Natriuret Pep 522.9 H Cholesterol HDL Cholesterol 11/13/17 11/13/17 11/13/17 09:18 10:53 12:02 WBC Hct RDW Seg Neuts % (Manual) Lymphocytes % (Manual) Monocytes % (Manual) Seg Neutrophils # Man Monocytes # (Manual) D-Dimer POC ABG pH 7.098 L POC ABG pCO2 118.3 H POC ABG pO2 112 H Potassium Chloride Carbon Dioxide BUN Creatinine Glucose POC Glucose Calcium Total Creatine Kinase 143 H Troponin T 0.047 H 0.087 H D NT-Pro-B Natriuret Pep Cholesterol 208 H HDL Cholesterol 79 H 11/13/17 11/13/17 11/13/17 13:45 16:31 17:54 WBC Hct RDW Seg Neuts % (Manual) Lymphocytes % (Manual) Monocytes % (Manual) Seg Neutrophils # Man Monocytes # (Manual) D-Dimer POC ABG pH 7.143 L 7.114 L POC ABG pCO2 98.8 H 108.1 H POC ABG pO2 55 L Potassium Chloride Carbon Dioxide BUN Creatinine Glucose POC Glucose Calcium Total Creatine Kinase Troponin T 0.077 H NT-Pro-B Natriuret Pep Cholesterol HDL Cholesterol 11/13/17 11/13/17 11/14/17 17:56 18:06 03:19 WBC Hct RDW Seg Neuts % (Manual) Lymphocytes % (Manual) Monocytes % (Manual) Seg Neutrophils # Man Monocytes # (Manual) D-Dimer POC ABG pH 7.480 H POC ABG pCO2 51.2 H POC ABG pO2 154 H 61 L Potassium Chloride Carbon Dioxide BUN Creatinine Glucose POC Glucose 137 H Calcium Total Creatine Kinase Troponin T NT-Pro-B Natriuret Pep Cholesterol HDL Cholesterol 11/14/17 11/14/17 11/14/17 03:55 11:20 11:59 WBC Hct RDW Seg Neuts % (Manual) Lymphocytes % (Manual) Monocytes % (Manual) Seg Neutrophils # Man Monocytes # (Manual) D-Dimer 494.15 H POC ABG pH POC ABG pCO2 POC ABG pO2 Potassium Chloride 93.4 L Carbon Dioxide BUN 26 H Creatinine 1.3 H D Glucose 164 H POC Glucose 120 H Calcium Total Creatine Kinase Troponin T NT-Pro-B Natriuret Pep Cholesterol HDL Cholesterol 11/14/17 11/14/17 11/15/17 16:10 21:41 03:41 WBC 13.6 H Hct 44.9 H RDW 16.8 H Seg Neuts % (Manual) Lymphocytes % (Manual) Monocytes % (Manual) Seg Neutrophils # Man Monocytes # (Manual) D-Dimer POC ABG pH POC ABG pCO2 POC ABG pO2 Potassium Chloride Carbon Dioxide BUN Creatinine Glucose POC Glucose 114 H 160 H Calcium Total Creatine Kinase Troponin T NT-Pro-B Natriuret Pep Cholesterol HDL Cholesterol 11/15/17 11/15/17 11/15/17 04:02 05:10 07:52 WBC Hct RDW Seg Neuts % (Manual) Lymphocytes % (Manual) Monocytes % (Manual) Seg Neutrophils # Man Monocytes # (Manual) D-Dimer POC ABG pH 7.244 L POC ABG pCO2 73.7 H POC ABG pO2 Potassium 5.7 H Chloride 97.8 L Carbon Dioxide BUN 35 H Creatinine 1.8 H Glucose 175 H POC Glucose 125 H Calcium 8.1 L Total Creatine Kinase Troponin T NT-Pro-B Natriuret Pep Cholesterol HDL Cholesterol Allied health notes reviewed: nursing
[2017-11-15] MEDS: ROBINUL PO SCH ×2 (13:50→21:26)
[2017-11-15] MEDS: PROAMATINE PO SCH ×2 (13:51→21:26)
[2017-11-15] MEDS: LEVAQUIN 750MG/150ML 750 MG/150 ML BAG IV SCH (13:52)
[2017-11-15] MEDS: TRANSDERM-SCOP TD SCH (13:53)
[2017-11-15] MEDS ORDERED: NYSTATIN PO SCH (14:00)
--- NOTE | 2017-11-15 14:26 | XRay Report ---
PORTABLE CHEST INDICATION: Right arm PICC placement. COMPARISON: 2:05 AM earlier today. FINDINGS: Portable, frontal chest radiograph, 12:55 PM, 11/15/2017 demonstrates new right upper extremity PICC tip about the cavoatrial junction. Stable endotracheal tube tip approximately 4 cm above the dulce maria. An esophagogastric tube may also be present. Exaggerated cardiomediastinal silhouette/possible cardiomegaly with hazy bibasilar opacities/effusions/atelectasis obscuring the diaphragm again noted. Stable bones/thoracic spondylosis. CONCLUSION: Interval uncomplicated right upper extremity PICC placement with various other stable findings, as above. Thank you for the opportunity to participate in this patient's care.
--- NOTE | 2017-11-15 15:17 | Ultrasound Report ---
ULTRASOUND RENAL INDICATION: Acute renal failure. COMPARISON: None similar. FINDINGS: Renal sonography suggests top normal/borderline increased renal cortical echogenicity. Grossly preserved contours. No hydronephrosis. Echogenic coarsening of imaged right hepatic lobe that also appears somewhat prominent/enlarged craniocaudal. RIGHT KIDNEY measures 11.7 x 5.1 x 5.4 cm with cortical thickness of 1.5 cm. LEFT KIDNEY estimated at 11.7 x 6.1 x 4.9 cm with cortical thickness of 1.6 cm. URINARY BLADDER decompressed by an indwelling Nogueira catheter and suboptimally assessed. CONCLUSION: No acute renal sonographic abnormality, though mild underlying medical renal disease, Nogueira catheter and coarse liver possible, as described. Please correlate. Thank you for the opportunity to participate in this patient's care.
[2017-11-15] MEDS: XANAX PO PRN ×2 (17:49→21:26)
[2017-11-15 18:45] LABS: Creatinine,Urine 132.6 mg/dL (0.1-20.0)
[2017-11-15] MEDS: HEPARIN SUB-Q SCH (21:26)
[2017-11-16] MEDS: DUONEB *Not for PRN Use IH SCH ×4 (01:20→20:11)
--- NOTE | 2017-11-16 03:33 | XRay Report ---
FINAL REPORT PROCEDURE: XR CHEST 1V AP TECHNIQUE: Chest radiograph anteroposterior view. CPT 58797 HISTORY: follow up respiratory failure COMPARISON: 11/15/2017 FINDINGS: Heart: Heart is enlarged Mediastinum/Vessels: Normal. Lungs/Pleural space: There is a residual right pleural effusion. The lungs are otherwise clear. There is suboptimal inspiration. There is no pneumothorax.. Bony thorax: No acute osseous abnormality. Life support devices: ETT, NG tube and right-sided central venous catheter are in proper position.. IMPRESSION: Heart is enlarged There is a residual right pleural effusion. The lungs are otherwise clear. There is suboptimal inspiration. There is no pneumothorax.. ETT, NG tube and right-sided central venous catheter are in proper position.. .
[2017-11-16] MEDS: XANAX PO PRN ×2 (06:17→18:42)
[2017-11-16] MEDS: HumuLIN R SUB-Q SCH ×4 (06:18→18:43)
[2017-11-16 06:23] LABS: BUN/Creatinine Ratio 39; Blood Urea Nitrogen 35 mg/dL (7-17); Calcium 8.6 mg/dL (8.4-10.2); Hemolysis Index 0
[2017-11-16] MEDS: PROAMATINE PO SCH ×3 (09:00→11:43)
[2017-11-16] MEDS: APRESOLINE IV PRN (09:28)
[2017-11-16] MEDS: LEVAQUIN 750MG/150ML 750 MG/150 ML BAG IV SCH (09:28)
[2017-11-16] MEDS: HEPARIN SUB-Q SCH ×2 (09:28→21:58)
[2017-11-16] MEDS: PEPCID PO SCH ×2 (09:29→21:56)
[2017-11-16] MEDS: HALFPRIN EC PO SCH (09:29)
[2017-11-16] MEDS: ROBINUL PO SCH ×3 (09:30→21:00)
--- NOTE | 2017-11-16 09:44 | Progress Note ---
Assessment and Plan 1. Acute kidney injury: Hemodynamic / Vasomotor mediated URIEL in the setting of low BP. Renal function is better. 2. Hyperkalemia: Improved. 3. Hypotension: Improved. 4. Respiratory failure: On vent. Subjective Date of service: 11/16/17 Principal diagnosis: Acute Hypoxemic Hypercapnic respiratory failure; Acute Encephalopathy; HTN Interval history: Patient was seen and examined at the bedside. Objective - Vital Signs Vital signs: Vital Signs - 12hr 11/15/17 11/15/17 11/15/17 22:00 22:02 22:30 Temperature Pulse Rate 74 69 72 Pulse Rate [ Anterior Left Throughout] Pulse Rate [ Apical] Respiratory 19 20 17 Rate Respiratory Rate [Anterior Left Throughout ] Blood Pressure 159/88 159/88 154/93 O2 Sat by Pulse 97 98 97 Oximetry 11/15/17 11/15/17 11/15/17 23:00 23:13 23:30 Temperature Pulse Rate 63 70 67 Pulse Rate [ Anterior Left Throughout] Pulse Rate [ Apical] Respiratory 12 14 Rate Respiratory Rate [Anterior Left Throughout ] Blood Pressure 155/81 155/81 148/88 O2 Sat by Pulse 96 98 96 Oximetry 11/16/17 11/16/17 11/16/17 00:00 00:30 01:00 Temperature 98.4 F Pulse Rate 66 71 71 Pulse Rate [ Anterior Left Throughout] Pulse Rate [ 74 Apical] Respiratory 12 12 11 L Rate Respiratory Rate [Anterior Left Throughout ] Blood Pressure 161/83 161/83 149/78 O2 Sat by Pulse 98 96 96 Oximetry 11/16/17 11/16/17 11/16/17 01:30 02:00 02:30 Temperature Pulse Rate 74 79 66 Pulse Rate [ Anterior Left Throughout] Pulse Rate [ Apical] Respiratory 13 11 L 12 Rate Respiratory Rate [Anterior Left Throughout ] Blood Pressure 130/73 127/70 132/74 O2 Sat by Pulse 98 96 97 Oximetry 11/16/17 11/16/17 11/16/17 03:00 03:30 03:53 Temperature Pulse Rate 74 66 63 Pulse Rate [ Anterior Left Throughout] Pulse Rate [ Apical] Respiratory 12 12 Rate Respiratory Rate [Anterior Left Throughout ] Blood Pressure 127/60 120/54 127/60 O2 Sat by Pulse 96 97 95 Oximetry 11/16/17 11/16/17 11/16/17 04:00 04:30 05:00 Temperature 97.7 F Pulse Rate 47 L 60 51 L Pulse Rate [ Anterior Left Throughout] Pulse Rate [ 74 Apical] Respiratory 12 20 19 Rate Respiratory Rate [Anterior Left Throughout ] Blood Pressure 109/49 129/73 135/76 O2 Sat by Pulse 97 99 98 Oximetry 11/16/17 11/16/17 11/16/17 05:30 06:00 06:30 Temperature Pulse Rate 64 58 L 46 L Pulse Rate [ Anterior Left Throughout] Pulse Rate [ Apical] Respiratory 12 20 20 Rate Respiratory Rate [Anterior Left Throughout ] Blood Pressure 135/76 158/97 146/87 O2 Sat by Pulse 95 Oximetry 11/16/17 11/16/17 11/16/17 07:00 07:30 07:38 Temperature Pulse Rate 44 L 49 L 50 L Pulse Rate [ Anterior Left Throughout] Pulse Rate [ Apical] Respiratory 20 20 Rate Respiratory Rate [Anterior Left Throughout ] Blood Pressure 151/88 149/84 149/84 O2 Sat by Pulse 97 95 98 Oximetry 11/16/17 11/16/17 11/16/17 08:00 08:45 09:03 Temperature 98.3 F Pulse Rate 44 L Pulse Rate [ 46 L 45 L Anterior Left Throughout] Pulse Rate [ Apical] Respiratory 20 Rate Respiratory 20 20 Rate [Anterior Left Throughout ] Blood Pressure 163/85 O2 Sat by Pulse 94 Oximetry 11/16/17 09:28 Temperature Pulse Rate 47 L Pulse Rate [ Anterior Left Throughout] Pulse Rate [ Apical] Respiratory Rate Respiratory Rate [Anterior Left Throughout ] Blood Pressure 175/90 O2 Sat by Pulse Oximetry - General Appearance General appearance: well-developed, well-nourished, appears stated age, obese, intubated, other (on vent, no distress) EENT: ATNC, PERRL, hearing intact Neck: supple Respiratory: Present: Clear to Ascultation Cardiology: regular, S1S2 Gastrointestinal: normoactive bowel sounds, no tenderness, obese Integumentary: no rash, warm and dry Neurologic: no focal deficit, no asterixis Musculoskeletal: other (no edema) - Lab 11/15/17 03:41 11/16/17 08:32 Most recent lab results Calcium 8.6 mg/dL (8.4-10.2) 11/16/17 04:30 Urine Creatinine 132.6 mg/dL (0.1-20.0) H 11/15/17 09:20 Urine Sodium 63 mmol/L 11/15/17 09:20
--- NOTE | 2017-11-16 09:58 | Progress Note ---
Assessment and Plan Acute hypercapnic respiratory failure Acute metabolic encephalopathy Acute exacerbation of asthma Morbid obesity Elevated troponin SIRS Malignant HTN Elevated troponin h/o CVA -Remains obtunded and minimally responsive on BIPAP, orally intubate and place on mechanical ventilatory support(discussed with ED physician) -Lung protective strategies once intubated -Restrictive oxygen therapy -VAP bundle once intubated -ABG post intubation, target minute ventilation of 11-12 to help treat hypercarbia -Antibiotics -Bronchodilators -Agitation management once intubated -Steroids, accucheck with glycemic control -VTE prophylaxis/Stress ulcer prophylaxis -Serial troponins, echocardiogram. -BP monitoring and management - Critically ill at risk of acute decompensation from a pulmonary and hemodynamic perspective. - Subjective Date of service: 11/16/17 Principal diagnosis: Acute Hypoxemic Hypercapnic respiratory failure; Acute Encephalopathy; HTN Objective - Exam Narrative Exam: GENERAL: well-developed morbidly obese -[place] female lying on bed on vent HEENT: Normocephalic. Atraumatic. No conjunctival congestion or icterus. Patient has moist mucous membranes. NECK: Supple. Trachea midline. ET on place CHEST/LUNGS: Wheezes auscultated bilaterally, breathing on vent . HEART/CARDIOVASCULAR: tachycardic. S1 and S2 positive. ABDOMEN: Abdomen is soft, nontender. Patient has normal bowel sounds. SKIN: There is no rash. Warm and dry. NEURO: sedated MUSCULOSKELETAL: No joint effusion or tenderness. EXTRIMITY: No edema, no cyanosis or clubbing. PSYCH: Unable to assess. Vital Signs - 12hr 11/15/17 11/15/17 11/15/17 22:00 22:02 22:30 Temperature Pulse Rate 74 69 72 Pulse Rate [ Anterior Left Throughout] Pulse Rate [ Apical] Respiratory 19 20 17 Rate Respiratory Rate [Anterior Left Throughout ] Blood Pressure 159/88 159/88 154/93 O2 Sat by Pulse 97 98 97 Oximetry 11/15/17 11/15/17 11/15/17 23:00 23:13 23:30 Temperature Pulse Rate 63 70 67 Pulse Rate [ Anterior Left Throughout] Pulse Rate [ Apical] Respiratory 12 14 Rate Respiratory Rate [Anterior Left Throughout ] Blood Pressure 155/81 155/81 148/88 O2 Sat by Pulse 96 98 96 Oximetry 11/16/17 11/16/17 11/16/17 00:00 00:30 01:00 Temperature 98.4 F Pulse Rate 66 71 71 Pulse Rate [ Anterior Left Throughout] Pulse Rate [ 74 Apical] Respiratory 12 12 11 L Rate Respiratory Rate [Anterior Left Throughout ] Blood Pressure 161/83 161/83 149/78 O2 Sat by Pulse 98 96 96 Oximetry 11/16/17 11/16/17 11/16/17 01:30 02:00 02:30 Temperature Pulse Rate 74 79 66 Pulse Rate [ Anterior Left Throughout] Pulse Rate [ Apical] Respiratory 13 11 L 12 Rate Respiratory Rate [Anterior Left Throughout ] Blood Pressure 130/73 127/70 132/74 O2 Sat by Pulse 98 96 97 Oximetry 11/16/17 11/16/17 11/16/17 03:00 03:30 03:53 Temperature Pulse Rate 74 66 63 Pulse Rate [ Anterior Left Throughout] Pulse Rate [ Apical] Respiratory 12 12 Rate Respiratory Rate [Anterior Left Throughout ] Blood Pressure 127/60 120/54 127/60 O2 Sat by Pulse 96 97 95 Oximetry 11/16/17 11/16/17 11/16/17 04:00 04:30 05:00 Temperature 97.7 F Pulse Rate 47 L 60 51 L Pulse Rate [ Anterior Left Throughout] Pulse Rate [ 74 Apical] Respiratory 12 20 19 Rate Respiratory Rate [Anterior Left Throughout ] Blood Pressure 109/49 129/73 135/76 O2 Sat by Pulse 97 99 98 Oximetry 11/16/17 11/16/17 11/16/17 05:30 06:00 06:30 Temperature Pulse Rate 64 58 L 46 L Pulse Rate [ Anterior Left Throughout] Pulse Rate [ Apical] Respiratory 12 20 20 Rate Respiratory Rate [Anterior Left Throughout ] Blood Pressure 135/76 158/97 146/87 O2 Sat by Pulse 95 Oximetry 11/16/17 11/16/17 11/16/17 07:00 07:30 07:38 Temperature Pulse Rate 44 L 49 L 50 L Pulse Rate [ Anterior Left Throughout] Pulse Rate [ Apical] Respiratory 20 20 Rate Respiratory Rate [Anterior Left Throughout ] Blood Pressure 151/88 149/84 149/84 O2 Sat by Pulse 97 95 98 Oximetry 11/16/17 11/16/17 11/16/17 08:00 08:45 09:03 Temperature 98.3 F Pulse Rate 44 L Pulse Rate [ 46 L 45 L Anterior Left Throughout] Pulse Rate [ Apical] Respiratory 20 Rate Respiratory 20 20 Rate [Anterior Left Throughout ] Blood Pressure 163/85 O2 Sat by Pulse 94 Oximetry 11/16/17 09:28 Temperature Pulse Rate 47 L Pulse Rate [ Anterior Left Throughout] Pulse Rate [ Apical] Respiratory Rate Respiratory Rate [Anterior Left Throughout ] Blood Pressure 175/90 O2 Sat by Pulse Oximetry Constitutional: appears uncomfortable, other (somnolent) Eyes: non-icteric, other (moderate proptosis) ENT: oropharynx moist, other (intubated) Neck: supple, no lymphadenopathy, no JVD, other (no thyromegaly; large neck circumference) Effort: mildly labored Ascultation: Bilateral: diminished breath sounds, rales Percussion: Bilateral: not dull Cardiovascular: regular rate and rhythm, other (no rubs or murmurs) Gastrointestinal: normoactive bowel sounds, soft, non-tender, non-distended, other (no palpable HSM) Integumentary: rash (stasis dermatitis) Extremities: no cyanosis, pulses normal, no ischemia or petechiae Neurologic: normal mental status, non-focal exam, pupils equal and round, CN II- XII normal, other (mild proptosis) Psychiatric: anxious CBC and BMP: 11/15/17 03:41 11/16/17 08:32 ABG, PT/INR, D-dimer: ABG POC ABG pH 7.278 (7.35-7.45) L 11/16/17 04:29 POC ABG pCO2 81.6 (35-45) H 11/16/17 04:29 POC ABG pO2 85 (80-105) 11/16/17 04:29 POC ABG HCO3 38.2 11/16/17 04:29 POC ABG Total CO2 41 11/16/17 04:29 POC ABG O2 Sat 94 11/16/17 04:29 PT/INR, D-dimer D-Dimer 494.15 ng/mlDDU (0-234) H 11/14/17 11:20 Abnormal lab findings: Abnormal Labs 11/13/17 11/13/17 11/13/17 09:18 09:18 09:18 WBC 12.6 H Hct 44.1 H RDW 16.0 H Seg Neuts % (Manual) 78.0 H Lymphocytes % (Manual) 13.0 L Monocytes % (Manual) 8.0 H Seg Neutrophils # Man 9.8 H Monocytes # (Manual) 1.0 H D-Dimer POC ABG pH POC ABG pCO2 POC ABG pO2 Potassium Chloride 94.0 L Carbon Dioxide 32 H BUN Creatinine 0.6 L Glucose 190 H POC Glucose Calcium Total Creatine Kinase Troponin T NT-Pro-B Natriuret Pep 522.9 H Cholesterol HDL Cholesterol Urine Creatinine 11/13/17 11/13/17 11/13/17 09:18 10:53 12:02 WBC Hct RDW Seg Neuts % (Manual) Lymphocytes % (Manual) Monocytes % (Manual) Seg Neutrophils # Man Monocytes # (Manual) D-Dimer POC ABG pH 7.098 L POC ABG pCO2 118.3 H POC ABG pO2 112 H Potassium Chloride Carbon Dioxide BUN Creatinine Glucose POC Glucose Calcium Total Creatine Kinase 143 H Troponin T 0.047 H 0.087 H D NT-Pro-B Natriuret Pep Cholesterol 208 H HDL Cholesterol 79 H Urine Creatinine 11/13/17 11/13/17 11/13/17 13:45 16:31 17:54 WBC Hct RDW Seg Neuts % (Manual) Lymphocytes % (Manual) Monocytes % (Manual) Seg Neutrophils # Man Monocytes # (Manual) D-Dimer POC ABG pH 7.143 L 7.114 L POC ABG pCO2 98.8 H 108.1 H POC ABG pO2 55 L Potassium Chloride Carbon Dioxide BUN Creatinine Glucose POC Glucose Calcium Total Creatine Kinase Troponin T 0.077 H NT-Pro-B Natriuret Pep Cholesterol HDL Cholesterol Urine Creatinine 11/13/17 11/13/17 11/14/17 17:56 18:06 03:19 WBC Hct RDW Seg Neuts % (Manual) Lymphocytes % (Manual) Monocytes % (Manual) Seg Neutrophils # Man Monocytes # (Manual) D-Dimer POC ABG pH 7.480 H POC ABG pCO2 51.2 H POC ABG pO2 154 H 61 L Potassium Chloride Carbon Dioxide BUN Creatinine Glucose POC Glucose 137 H Calcium Total Creatine Kinase Troponin T NT-Pro-B Natriuret Pep Cholesterol HDL Cholesterol Urine Creatinine 11/14/17 11/14/17 11/14/17 03:55 11:20 11:59 WBC Hct RDW Seg Neuts % (Manual) Lymphocytes % (Manual) Monocytes % (Manual) Seg Neutrophils # Man Monocytes # (Manual) D-Dimer 494.15 H POC ABG pH POC ABG pCO2 POC ABG pO2 Potassium Chloride 93.4 L Carbon Dioxide BUN 26 H Creatinine 1.3 H D Glucose 164 H POC Glucose 120 H Calcium Total Creatine Kinase Troponin T NT-Pro-B Natriuret Pep Cholesterol HDL Cholesterol Urine Creatinine 11/14/17 11/14/17 11/15/17 16:10 21:41 03:41 WBC 13.6 H Hct 44.9 H RDW 16.8 H Seg Neuts % (Manual) Lymphocytes % (Manual) Monocytes % (Manual) Seg Neutrophils # Man Monocytes # (Manual) D-Dimer POC ABG pH POC ABG pCO2 POC ABG pO2 Potassium Chloride Carbon Dioxide BUN Creatinine Glucose POC Glucose 114 H 160 H Calcium Total Creatine Kinase Troponin T NT-Pro-B Natriuret Pep Cholesterol HDL Cholesterol Urine Creatinine 11/15/17 11/15/17 11/15/17 04:02 05:10 07:52 WBC Hct RDW Seg Neuts % (Manual) Lymphocytes % (Manual) Monocytes % (Manual) Seg Neutrophils # Man Monocytes # (Manual) D-Dimer POC ABG pH 7.244 L POC ABG pCO2 73.7 H POC ABG pO2 Potassium 5.7 H Chloride 97.8 L Carbon Dioxide BUN 35 H Creatinine 1.8 H Glucose 175 H POC Glucose 125 H Calcium 8.1 L Total Creatine Kinase Troponin T NT-Pro-B Natriuret Pep Cholesterol HDL Cholesterol Urine Creatinine 11/15/17 11/15/17 11/15/17 09:20 12:51 13:21 WBC Hct RDW Seg Neuts % (Manual) Lymphocytes % (Manual) Monocytes % (Manual) Seg Neutrophils # Man Monocytes # (Manual) D-Dimer POC ABG pH 7.453 H POC ABG pCO2 51.5 H POC ABG pO2 Potassium Chloride Carbon Dioxide BUN Creatinine Glucose POC Glucose 109 H Calcium Total Creatine Kinase Troponin T NT-Pro-B Natriuret Pep Cholesterol HDL Cholesterol Urine Creatinine 132.6 H 11/15/17 11/15/17 11/16/17 18:27 23:42 04:29 WBC Hct RDW Seg Neuts % (Manual) Lymphocytes % (Manual) Monocytes % (Manual) Seg Neutrophils # Man Monocytes # (Manual) D-Dimer POC ABG pH 7.278 L POC ABG pCO2 81.6 H POC ABG pO2 Potassium Chloride Carbon Dioxide BUN Creatinine Glucose POC Glucose 124 H 132 H Calcium Total Creatine Kinase Troponin T NT-Pro-B Natriuret Pep Cholesterol HDL Cholesterol Urine Creatinine 04/21/18 04/21/18 04:30 05:01 WBC Hct RDW Seg Neuts % (Manual) Lymphocytes % (Manual) Monocytes % (Manual) Seg Neutrophils # Man Monocytes # (Manual) D-Dimer POC ABG pH POC ABG pCO2 POC ABG pO2 Potassium Chloride 97.3 L Carbon Dioxide 35 H BUN 35 H Creatinine Glucose 131 H POC Glucose 113 H Calcium Total Creatine Kinase Troponin T NT-Pro-B Natriuret Pep Cholesterol HDL Cholesterol Urine Creatinine Allied health notes reviewed: nursing
[2017-11-16] MEDS: fentaNYL DRIP Premix 2,000 MCG/100 ML BAG IV SCH ×2 (11:38→22:18)
--- NOTE | 2017-11-16 13:13 | Progress Note ---
Assessment and Plan Acute hypercapnic respiratory failure - likley from acute asthma exacerbation and worsening pulmonary edema? -We'll monitor the patient to ICU, Wean off vent as tolerated - Will provide scheduled nebulizers breathing treatment - cont on empiric steroid and antibiotic - Consulted pulmonary for vent management b/L pulmonary edema vs INEZ - Cxr on 11/15 showed worsening pulmonary edema and pleural effusion - cont lasix for now - will follow pulmonary recommendation, CXR today showed improvement Acute metabolic encephalopathy, from hypercapnea - pt is at her baseline now when off sedation and can communicate with writting Acute exacerbation of asthma - cont scheduled nebulizers breathing treatment, empiric steroid and antibiotic Hypertensive malignancy, on admission now normo to hypotensive - placed on home medications following admission but never received - stopped all meds for low BP Elevated troponin/NSTEMI type 2 - cardiology following, preserved EF on 2D ceho SIRS, with mild leukocytosis, tachycardia and tachypnea - likely from acute asthma exacerbation h/o CVA - aspirin statin for now [place], now resolved - likely from hypotensive episodes, Cr increased upto1.8 - hold all BP meds, nephrology consulted hyperkalemia, K was upto 5.7 - ordered hyperkalemia cocktail, resolved Morbid obesity - family service counselor when medically stable FEN - cont TF for now, hold iv fluid for worsening pulmonary edema - Provide DVT prophylaxis with Lovenox. PPI for GI Px The high probability of a clinically significant, sudden or life threatening deterioration of the system(s) required my full and direct attention, intervention and personal management. The aggregate critical care time was [45] minutes. This time is in addition to time spent performing reported procedures but includes the following: [x] Data Review and interpretation [x] Patient assessment and monitoring of vital signs [x] Documentation [x] Medication orders and management Physical Exam: GENERAL: well-developed morbidly obese -[place] female lying on bed on vent HEENT: Normocephalic. Atraumatic. No conjunctival congestion or icterus. Patient has moist mucous membranes. NECK: Supple. Trachea midline. ET on place CHEST/LUNGS: Wheezes auscultated bilaterally, breathing on vent . HEART/CARDIOVASCULAR: tachycardic. S1 and S2 positive. ABDOMEN: Abdomen is soft, nontender. Patient has normal bowel sounds. SKIN: There is no rash. Warm and dry. NEURO: communicates with writing, no focal deficit MUSCULOSKELETAL: No joint effusion or tenderness. EXTRIMITY: No edema, no cyanosis or clubbing. PSYCH: cooperative. Subjective Date of service: 11/16/17 Principal diagnosis: Acute Hypoxemic Hypercapnic respiratory failure; Acute Encephalopathy; HTN Interval history: pt seen and examined Remained intubated but communicates with writing denies any complaint Objective - Constitutional Vitals: Vital Signs - 12hr 11/16/17 11/16/17 11/16/17 01:30 02:00 02:30 Temperature Pulse Rate 74 79 66 Pulse Rate [ Anterior Left Throughout] Pulse Rate [ Apical] Respiratory 13 11 L 12 Rate Respiratory Rate [Anterior Left Throughout ] Blood Pressure 130/73 127/70 132/74 O2 Sat by Pulse 98 96 97 Oximetry 11/16/17 11/16/17 11/16/17 03:00 03:30 03:53 Temperature Pulse Rate 74 66 63 Pulse Rate [ Anterior Left Throughout] Pulse Rate [ Apical] Respiratory 12 12 Rate Respiratory Rate [Anterior Left Throughout ] Blood Pressure 127/60 120/54 127/60 O2 Sat by Pulse 96 97 95 Oximetry 11/16/17 11/16/17 11/16/17 04:00 04:30 05:00 Temperature 97.7 F Pulse Rate 47 L 60 51 L Pulse Rate [ Anterior Left Throughout] Pulse Rate [ 74 Apical] Respiratory 12 20 19 Rate Respiratory Rate [Anterior Left Throughout ] Blood Pressure 109/49 129/73 135/76 O2 Sat by Pulse 97 99 98 Oximetry 11/16/17 11/16/17 11/16/17 05:30 06:00 06:30 Temperature Pulse Rate 64 58 L 46 L Pulse Rate [ Anterior Left Throughout] Pulse Rate [ Apical] Respiratory 12 20 20 Rate Respiratory Rate [Anterior Left Throughout ] Blood Pressure 135/76 158/97 146/87 O2 Sat by Pulse 95 Oximetry 11/16/17 11/16/17 11/16/17 07:00 07:30 07:38 Temperature Pulse Rate 44 L 49 L 50 L Pulse Rate [ Anterior Left Throughout] Pulse Rate [ Apical] Respiratory 20 20 Rate Respiratory Rate [Anterior Left Throughout ] Blood Pressure 151/88 149/84 149/84 O2 Sat by Pulse 97 95 98 Oximetry 11/16/17 11/16/17 11/16/17 08:00 08:30 08:45 Temperature 98.3 F Pulse Rate 44 L 45 L Pulse Rate [ 46 L Anterior Left Throughout] Pulse Rate [ Apical] Respiratory 20 20 Rate Respiratory 20 Rate [Anterior Left Throughout ] Blood Pressure 163/85 171/113 O2 Sat by Pulse 94 96 Oximetry 11/16/17 11/16/17 11/16/17 09:00 09:03 09:28 Temperature Pulse Rate 46 L 47 L Pulse Rate [ 45 L Anterior Left Throughout] Pulse Rate [ Apical] Respiratory 19 Rate Respiratory 20 Rate [Anterior Left Throughout ] Blood Pressure 175/90 175/90 O2 Sat by Pulse 94 Oximetry 11/16/17 11/16/17 11/16/17 09:30 10:00 10:30 Temperature Pulse Rate 53 L 64 56 L Pulse Rate [ Anterior Left Throughout] Pulse Rate [ Apical] Respiratory 20 20 20 Rate Respiratory Rate [Anterior Left Throughout ] Blood Pressure 175/90 153/84 147/67 O2 Sat by Pulse 96 91 93 Oximetry 11/16/17 11/16/17 11/16/17 11:00 11:30 11:46 Temperature Pulse Rate 86 79 60 Pulse Rate [ Anterior Left Throughout] Pulse Rate [ Apical] Respiratory 25 H 20 Rate Respiratory Rate [Anterior Left Throughout ] Blood Pressure 147/67 187/99 O2 Sat by Pulse 93 93 96 Oximetry 11/16/17 11/16/17 12:00 12:30 Temperature 98.6 F Pulse Rate 54 L 53 L Pulse Rate [ Anterior Left Throughout] Pulse Rate [ Apical] Respiratory 20 19 Rate Respiratory Rate [Anterior Left Throughout ] Blood Pressure 172/84 158/76 O2 Sat by Pulse 91 93 Oximetry - Labs CBC & Chem 7: 11/15/17 03:41 11/16/17 08:32 Labs: Abnormal lab results 11/15/17 11/15/17 11/15/17 Range/Units 09:20 13:21 18:27 POC ABG pH 7.453 H (7.35-7.45) POC ABG pCO2 51.5 H (35-45) Chloride (98-107) mmol/L Carbon Dioxide (22-30) mmol/L BUN (7-17) mg/dL Glucose (65-100) mg/dL POC Glucose 124 H (70-105) Urine Creatinine 132.6 H (0.1-20.0) mg/dL 11/15/17 11/16/17 11/16/17 Range/Units 23:42 04:29 04:30 POC ABG pH 7.278 L (7.35-7.45) POC ABG pCO2 81.6 H (35-45) Chloride 97.3 L (98-107) mmol/L Carbon Dioxide 35 H (22-30) mmol/L BUN 35 H (7-17) mg/dL Glucose 131 H (65-100) mg/dL POC Glucose 132 H (70-105) Urine Creatinine (0.1-20.0) mg/dL 11/16/17 Range/Units 05:01 POC ABG pH (7.35-7.45) POC ABG pCO2 (35-45) Chloride (98-107) mmol/L Carbon Dioxide (22-30) mmol/L BUN (7-17) mg/dL Glucose (65-100) mg/dL POC Glucose 113 H (70-105) Urine Creatinine (0.1-20.0) mg/dL
--- NOTE | 2017-11-16 13:15 | Progress Note ---
Assessment and Plan Acute hypercapnic respiratory failure on vent b/L pulmonary edema vs INEZ Acute metabolic encephalopathy, from hypercapnea - Acute exacerbation of asthma Hypertensive malignancy, on admission now normo to hypotensive NStemi type 2 acute renal insufficency morbid obesity rec: cont current management, normal lv function, normal coronaries on cath last year. Subjective Date of service: 11/16/17 Principal diagnosis: Acute Hypoxemic Hypercapnic respiratory failure; Acute Encephalopathy; HTN Interval history: pt on vent and able to communicate Objective Vital Signs Temp Pulse Pulse Pulse Resp Resp BP 11/16/17 12:30 53 L 19 158/76 11/16/17 12:00 98.6 F 54 L 20 172/84 11/16/17 11:46 60 11/16/17 11:30 79 20 187/99 11/16/17 11:00 86 25 H 147/67 11/16/17 10:30 56 L 20 147/67 11/16/17 10:00 64 20 153/84 11/16/17 09:30 53 L 20 175/90 11/16/17 09:28 47 L 175/90 11/16/17 09:03 45 L 20 11/16/17 09:00 46 L 19 175/90 11/16/17 08:45 46 L 20 11/16/17 08:30 45 L 20 171/113 11/16/17 08:00 98.3 F 44 L 20 163/85 11/16/17 07:38 50 L 149/84 11/16/17 07:30 49 L 20 149/84 11/16/17 07:00 44 L 20 151/88 11/16/17 06:30 46 L 20 146/87 11/16/17 06:00 58 L 20 158/97 11/16/17 05:30 64 12 135/76 11/16/17 05:00 51 L 19 135/76 11/16/17 04:30 60 20 129/73 11/16/17 04:00 97.7 F 47 L 74 12 109/49 11/16/17 03:53 63 127/60 11/16/17 03:30 66 12 120/54 11/16/17 03:00 74 12 127/60 11/16/17 02:30 66 12 132/74 11/16/17 02:00 79 11 L 127/70 11/16/17 01:30 74 13 130/73 11/16/17 01:00 71 11 L 149/78 11/16/17 00:30 71 12 161/83 11/16/17 00:00 98.4 F 66 74 12 161/83 11/15/17 23:30 67 14 148/88 11/15/17 23:13 70 155/81 11/15/17 23:00 63 12 155/81 11/15/17 22:30 72 17 154/93 11/15/17 22:02 69 20 159/88 11/15/17 22:00 74 19 159/88 11/15/17 21:44 158/83 11/15/17 21:30 74 22 147/83 11/15/17 21:00 71 15 151/89 11/15/17 20:30 62 13 157/94 11/15/17 20:19 66 20 11/15/17 20:09 63 20 11/15/17 20:00 98.5 F 49 L 74 13 146/88 11/15/17 19:30 70 18 129/62 11/15/17 19:06 61 129/62 11/15/17 19:00 47 L 17 129/62 11/15/17 18:30 52 L 12 120/58 11/15/17 18:00 50 L 12 128/61 11/15/17 17:30 50 L 16 134/65 11/15/17 17:00 67 19 145/75 11/15/17 16:30 87 21 130/73 11/15/17 16:00 97.7 F 58 L 19 130/73 11/15/17 15:30 68 14 138/69 11/15/17 15:00 70 12 132/70 11/15/17 14:38 70 11/15/17 14:30 71 20 128/62 11/15/17 14:00 74 13 116/71 11/15/17 13:43 66 12 11/15/17 13:30 70 19 112/76 Pulse Ox 11/16/17 12:30 93 11/16/17 12:00 91 11/16/17 11:46 96 11/16/17 11:30 93 11/16/17 11:00 93 11/16/17 10:30 93 11/16/17 10:00 91 11/16/17 09:30 96 04/21/18 09:28 11/16/17 09:03 11/16/17 09:00 94 11/16/17 08:45 11/16/17 08:30 96 11/16/17 08:00 94 11/16/17 07:38 98 11/16/17 07:30 95 11/16/17 07:00 97 11/16/17 06:30 95 11/16/17 06:00 11/16/17 05:30 11/16/17 05:00 98 11/16/17 04:30 99 11/16/17 04:00 97 11/16/17 03:53 95 11/16/17 03:30 97 11/16/17 03:00 96 11/16/17 02:30 97 11/16/17 02:00 96 11/16/17 01:30 98 11/16/17 01:00 96 11/16/17 00:30 96 11/16/17 00:00 98 11/15/17 23:30 96 11/15/17 23:13 98 11/15/17 23:00 96 11/15/17 22:30 97 11/15/17 22:02 98 11/15/17 22:00 97 11/15/17 21:44 96 11/15/17 21:30 97 11/15/17 21:00 96 11/15/17 20:30 11/15/17 20:19 11/15/17 20:09 11/15/17 20:00 97 11/15/17 19:30 95 11/15/17 19:06 96 11/15/17 19:00 96 11/15/17 18:30 97 11/15/17 18:00 97 11/15/17 17:30 97 11/15/17 17:00 96 11/15/17 16:30 94 11/15/17 16:00 96 11/15/17 15:30 96 11/15/17 15:00 95 11/15/17 14:38 98 11/15/17 14:30 94 11/15/17 14:00 93 11/15/17 13:43 11/15/17 13:30 96 - Physical Examination General: No Apparent Distress, Other (intubated) HEENT: Positive: PERRL, Normocephaly Neck: Positive: neck supple, trachea midline Cardiac: Positive: Reg Rate and Rhythm Lungs: Positive: clear to auscultation Neuro: Positive: Grossly Intact, Other (intubated) Abdomen: Positive: Active Bowel Sounds Skin: Positive: Clear. Negative: Rash, Wound Musculoskeletal: No Pain, Normal Range of Motion Extremities: Absent: edema (trace BLE) - Labs and Meds Comprehensive Metabolic Panel 11/16/17 11/16/17 Range/Units 04:30 08:32 Sodium 142 (137-145) mmol/L Potassium 4.8 4.6 (3.6-5.0) mmol/L Chloride 97.3 L (98-107) mmol/L Carbon Dioxide 35 H (22-30) mmol/L BUN 35 H (7-17) mg/dL Creatinine 0.9 (0.7-1.2) mg/dL Glucose 131 H (65-100) mg/dL Calcium 8.6 (8.4-10.2) mg/dL - Imaging and Cardiology EKG: report reviewed, image reviewed Echo: report reviewed (11/13/2017 normal lv function, mild as and normal rvsp ) Cardiac cath: report reviewed (11/2016 showed patent coronaries, hypertensive vessels, large epicardial vessels, mod to severe tortuosity of vessels, normal LV function. ) - Telemetry EKG Rhythm: Sinus Bradycardia - EKG Sinus rhythms and dysrhythmias: sinus rhythm Chamber hypertrophy or enlargement: left ventricular hypertro Repolarization changes or abnormalities: repolarization abn secondary to ventricular hypertrophy - Allied health notes Allied health notes reviewed: nursing
[2017-11-16] MEDS: DIAMOX IV SCH (13:27)
[2017-11-17] MEDS: XANAX PO PRN ×2 (00:10→21:02)
[2017-11-17] MEDS: DUONEB *Not for PRN Use IH SCH ×4 (01:50→20:04)
[2017-11-17] MEDS: fentaNYL DRIP Premix 2,000 MCG/100 ML BAG IV SCH (03:34)
[2017-11-17] MEDS: DIAMOX IV SCH ×2 (05:30→13:09)
[2017-11-17 08:10] LABS: Basophils % (Auto) 0.4 % (0.0-1.8); Hematocrit 40.3 % (30.3-42.9); Hemoglobin 12.9 gm/dl (10.1-14.3); Lymphocytes # (Auto) 0.4 K/mm3 (1.2-5.4); Mean Corpuscular HGB Conc 32 % (30-34); Mean Corpuscular Hemoglobin 29 pg (28-32); Mean Corpuscular Volume 90 fl (79-97); Monocytes # (Auto) 0.9 K/mm3 (0.0-0.8); Platelet Count 228 K/mm3 (140-440); Red Blood Count 4.47 M/mm3 (3.65-5.03)
[2017-11-17] MEDS: HALFPRIN EC PO SCH (09:25)
[2017-11-17] MEDS: ROBINUL PO SCH (09:25)
[2017-11-17] MEDS: PEPCID PO SCH ×2 (09:25→21:01)
[2017-11-17] MEDS: HEPARIN SUB-Q SCH ×2 (09:26→21:00)
[2017-11-17] MEDS: LEVAQUIN 750MG/150ML 750 MG/150 ML BAG IV SCH (09:26)
[2017-11-17 09:41] LABS: BUN/Creatinine Ratio 39; Blood Urea Nitrogen 35 mg/dL (7-17); Calcium 9.7 mg/dL (8.4-10.2); Hemolysis Index 7
--- NOTE | 2017-11-17 09:50 | Progress Note ---
Assessment and Plan 1. Acute kidney injury: Hemodynamic / Vasomotor mediated URIEL in the setting of low BP. Renal function is better. 2. Hyperkalemia: Improved. 3. Hypotension: Improved. 4. Respiratory failure: On vent. Subjective Date of service: 11/17/17 Principal diagnosis: Acute Hypoxemic Hypercapnic respiratory failure; Acute Encephalopathy; HTN Interval history: Patient was seen and examined at the bedside. Objective - Vital Signs Vital signs: Vital Signs - 12hr 11/16/17 11/16/17 11/16/17 22:00 22:30 23:00 Temperature Pulse Rate 69 71 70 Pulse Rate [ Anterior Bilateral Throughout] Respiratory 20 20 20 Rate Respiratory Rate [Anterior Bilateral Throughout] Blood Pressure 159/83 158/82 181/96 O2 Sat by Pulse 91 91 92 Oximetry 11/16/17 11/16/17 11/16/17 23:06 23:30 23:41 Temperature Pulse Rate 92 H 68 74 Pulse Rate [ Anterior Bilateral Throughout] Respiratory 20 20 Rate Respiratory Rate [Anterior Bilateral Throughout] Blood Pressure 181/96 167/89 O2 Sat by Pulse 95 93 97 Oximetry 11/17/17 11/17/17 11/17/17 00:00 00:11 00:30 Temperature 97.8 F Pulse Rate 78 70 Pulse Rate [ Anterior Bilateral Throughout] Respiratory 15 19 Rate Respiratory Rate [Anterior Bilateral Throughout] Blood Pressure 180/150 167/89 O2 Sat by Pulse 96 97 Oximetry 11/17/17 11/17/17 11/17/17 01:00 01:30 02:00 Temperature Pulse Rate 78 70 Pulse Rate [ Anterior Bilateral Throughout] Respiratory 20 20 20 Rate Respiratory Rate [Anterior Bilateral Throughout] Blood Pressure 162/88 162/88 162/88 O2 Sat by Pulse 75 L 96 Oximetry 11/17/17 11/17/17 11/17/17 02:30 03:00 03:30 Temperature Pulse Rate 52 L 52 L 50 L Pulse Rate [ Anterior Bilateral Throughout] Respiratory 20 20 20 Rate Respiratory Rate [Anterior Bilateral Throughout] Blood Pressure 175/91 129/63 129/63 O2 Sat by Pulse 96 93 96 Oximetry 11/17/17 11/17/17 11/17/17 04:00 04:30 05:00 Temperature 97.9 F Pulse Rate 73 71 55 L Pulse Rate [ Anterior Bilateral Throughout] Respiratory 17 18 18 Rate Respiratory Rate [Anterior Bilateral Throughout] Blood Pressure 164/93 164/93 154/81 O2 Sat by Pulse 98 98 93 Oximetry 11/17/17 11/17/17 11/17/17 05:30 05:54 06:00 Temperature Pulse Rate 52 L 66 54 L Pulse Rate [ Anterior Bilateral Throughout] Respiratory 17 19 Rate Respiratory Rate [Anterior Bilateral Throughout] Blood Pressure 154/81 162/81 O2 Sat by Pulse 98 98 94 Oximetry 11/17/17 11/17/17 11/17/17 07:34 07:38 08:00 Temperature 99.0 F Pulse Rate 74 Pulse Rate [ 82 65 Anterior Bilateral Throughout] Respiratory Rate Respiratory 22 21 Rate [Anterior Bilateral Throughout] Blood Pressure 130/68 O2 Sat by Pulse 98 Oximetry 11/17/17 08:18 Temperature Pulse Rate 84 Pulse Rate [ Anterior Bilateral Throughout] Respiratory 20 Rate Respiratory Rate [Anterior Bilateral Throughout] Blood Pressure 144/75 O2 Sat by Pulse 98 Oximetry - General Appearance General appearance: well-developed, well-nourished, appears stated age, obese, intubated, other (on vent, FiO2 30%, no distress, sitting in the bed) EENT: ATNC, hearing intact Neck: supple Respiratory: Present: Clear to Ascultation Cardiology: regular, S1S2, no murmurs Gastrointestinal: normoactive bowel sounds, no tenderness, obese Integumentary: no rash Neurologic: no asterixis, other (able to move all 4 extremities) Musculoskeletal: other (no edema) Psychiatric: cooperative - Lab 11/17/17 07:49 11/17/17 07:49 Most recent lab results Calcium 9.7 mg/dL (8.4-10.2) 11/17/17 07:49 Urine Creatinine 132.6 mg/dL (0.1-20.0) H 11/15/17 09:20 Urine Sodium 63 mmol/L 11/15/17 09:20
--- NOTE | 2017-11-17 10:34 | XRay Report ---
AP CHEST :11/17/17 CLINICAL: Intubated.Follow up respiratory failure. COMPARISON:11/15/17 FINDINGS: The endotracheal tube is in satisfactory position. T. a nasogastric tube tip appears to be below the diaphragm. There is suggestion of a small right pneumothorax with a medial pleural line identified. Stable cardiomegaly and increased central vascular congestion. Increased right basal lung opacity with silhouetting of the right hemidiaphragm. Stable opacification of the left lung base. IMPRESSION: Suspect a small right pneumothorax.Increased central vascular congestion and new right basal opacification suspicious for a pleural effusion.
--- NOTE | 2017-11-17 10:46 | Progress Note ---
Assessment and Plan Acute hypercapnic respiratory failure Acute metabolic encephalopathy Acute exacerbation of asthma Morbid obesity Elevated troponin SIRS Malignant HTN Elevated troponin h/o CVA -More awake and alert, diuresing well with Acetazolamide. Patient has hypercarbia on CPAP but is probably a chronic retainer. CXR was noted to have PTX per the radiologist, CT chest non contrast has beeen ordered, patient it. Plan to extubate and use NIPPV as needed -Lung protective strategies -Restrictive oxygen therapy -VAP bundle -Antibiotics -Bronchodilators -Agitation management -Steroids, accucheck with glycemic control -VTE prophylaxis/Stress ulcer prophylaxis -BP monitoring and management Subjective Date of service: 11/17/17 Principal diagnosis: Acute Hypoxemic Hypercapnic respiratory failure; Acute Encephalopathy; HTN Objective - Exam Narrative Exam: GENERAL: well-developed morbidly obese -[place] female lying on bed on vent HEENT: Normocephalic. Atraumatic. No conjunctival congestion or icterus. Patient has moist mucous membranes. NECK: Supple. Trachea midline. ET on place CHEST/LUNGS: Wheezes auscultated bilaterally, breathing on vent . HEART/CARDIOVASCULAR: tachycardic. S1 and S2 positive. ABDOMEN: Abdomen is soft, nontender. Patient has normal bowel sounds. SKIN: There is no rash. Warm and dry. NEURO: sedated MUSCULOSKELETAL: No joint effusion or tenderness. EXTRIMITY: No edema, no cyanosis or clubbing. PSYCH: Unable to assess. Vital Signs - 12hr 11/16/17 11/16/17 11/16/17 23:00 23:06 23:30 Temperature Pulse Rate 70 92 H 68 Pulse Rate [ Anterior Bilateral Throughout] Respiratory 20 20 20 Rate Respiratory Rate [Anterior Bilateral Throughout] Blood Pressure 181/96 181/96 167/89 O2 Sat by Pulse 92 95 93 Oximetry 11/16/17 11/17/17 11/17/17 23:41 00:00 00:11 Temperature 97.8 F Pulse Rate 74 78 Pulse Rate [ Anterior Bilateral Throughout] Respiratory 15 Rate Respiratory Rate [Anterior Bilateral Throughout] Blood Pressure 180/150 O2 Sat by Pulse 97 96 Oximetry 11/17/17 11/17/17 11/17/17 00:30 01:00 01:30 Temperature Pulse Rate 70 78 Pulse Rate [ Anterior Bilateral Throughout] Respiratory 19 20 20 Rate Respiratory Rate [Anterior Bilateral Throughout] Blood Pressure 167/89 162/88 162/88 O2 Sat by Pulse 97 75 L Oximetry 11/17/17 11/17/17 11/17/17 02:00 02:30 03:00 Temperature Pulse Rate 70 52 L 52 L Pulse Rate [ Anterior Bilateral Throughout] Respiratory 20 20 20 Rate Respiratory Rate [Anterior Bilateral Throughout] Blood Pressure 162/88 175/91 129/63 O2 Sat by Pulse 96 96 93 Oximetry 11/17/17 11/17/17 11/17/17 03:30 04:00 04:30 Temperature 97.9 F Pulse Rate 50 L 73 71 Pulse Rate [ Anterior Bilateral Throughout] Respiratory 20 17 18 Rate Respiratory Rate [Anterior Bilateral Throughout] Blood Pressure 129/63 164/93 164/93 O2 Sat by Pulse 96 98 98 Oximetry 11/17/17 11/17/17 11/17/17 05:00 05:30 05:54 Temperature Pulse Rate 55 L 52 L 66 Pulse Rate [ Anterior Bilateral Throughout] Respiratory 18 17 Rate Respiratory Rate [Anterior Bilateral Throughout] Blood Pressure 154/81 154/81 O2 Sat by Pulse 93 98 98 Oximetry 11/17/17 11/17/17 11/17/17 06:00 07:34 07:38 Temperature Pulse Rate 54 L 74 Pulse Rate [ 82 Anterior Bilateral Throughout] Respiratory 19 Rate Respiratory 22 Rate [Anterior Bilateral Throughout] Blood Pressure 162/81 130/68 O2 Sat by Pulse 94 98 Oximetry 11/17/17 11/17/17 11/17/17 08:00 08:18 09:58 Temperature 99.0 F Pulse Rate 84 69 Pulse Rate [ 65 Anterior Bilateral Throughout] Respiratory 20 22 Rate Respiratory 21 Rate [Anterior Bilateral Throughout] Blood Pressure 144/75 164/94 O2 Sat by Pulse 98 99 Oximetry 11/17/17 10:03 Temperature Pulse Rate 60 Pulse Rate [ Anterior Bilateral Throughout] Respiratory Rate Respiratory Rate [Anterior Bilateral Throughout] Blood Pressure 164/94 O2 Sat by Pulse 93 Oximetry Constitutional: appears uncomfortable, other (somnolent) Eyes: non-icteric, other (moderate proptosis) ENT: oropharynx moist, other (intubated) Neck: supple, no lymphadenopathy, no JVD, other (no thyromegaly; large neck circumference) Effort: mildly labored Ascultation: Bilateral: diminished breath sounds, rales Percussion: Bilateral: not dull Cardiovascular: regular rate and rhythm, other (no rubs or murmurs) Gastrointestinal: normoactive bowel sounds, soft, non-tender, non-distended, other (no palpable HSM) Integumentary: rash (stasis dermatitis) Extremities: no cyanosis, pulses normal, no ischemia or petechiae Neurologic: normal mental status, non-focal exam, pupils equal and round, CN II- XII normal, other (mild proptosis) Psychiatric: anxious CBC and BMP: 11/17/17 07:49 11/17/17 07:49 ABG, PT/INR, D-dimer: ABG POC ABG pH 7.287 (7.35-7.45) L 11/17/17 10:01 POC ABG pCO2 63.7 (35-45) H 11/17/17 10:01 POC ABG pO2 90 (80-105) 11/17/17 10:01 POC ABG HCO3 30.5 11/17/17 10:01 POC ABG Total CO2 32 11/17/17 10:01 POC ABG O2 Sat 95 11/17/17 10:01 PT/INR, D-dimer D-Dimer 494.15 ng/mlDDU (0-234) H 11/14/17 11:20 Abnormal lab findings: Abnormal Labs 11/13/17 11/13/17 11/13/17 09:18 09:18 09:18 WBC 12.6 H Hct 44.1 H RDW 16.0 H Lymph % (Auto) Adams % (Auto) Lymph # Adams # Seg Neutrophils % Seg Neuts % (Manual) 78.0 H Lymphocytes % (Manual) 13.0 L Monocytes % (Manual) 8.0 H Seg Neutrophils # Seg Neutrophils # Man 9.8 H Monocytes # (Manual) 1.0 H D-Dimer POC ABG pH POC ABG pCO2 POC ABG pO2 Potassium Chloride 94.0 L Carbon Dioxide 32 H BUN Creatinine 0.6 L Glucose 190 H POC Glucose Calcium Total Creatine Kinase Troponin T NT-Pro-B Natriuret Pep 522.9 H Cholesterol HDL Cholesterol Urine Creatinine 11/13/17 11/13/17 11/13/17 09:18 10:53 12:02 WBC Hct RDW Lymph % (Auto) Adams % (Auto) Lymph # Adams # Seg Neutrophils % Seg Neuts % (Manual) Lymphocytes % (Manual) Monocytes % (Manual) Seg Neutrophils # Seg Neutrophils # Man Monocytes # (Manual) D-Dimer POC ABG pH 7.098 L POC ABG pCO2 118.3 H POC ABG pO2 112 H Potassium Chloride Carbon Dioxide BUN Creatinine Glucose POC Glucose Calcium Total Creatine Kinase 143 H Troponin T 0.047 H 0.087 H D NT-Pro-B Natriuret Pep Cholesterol 208 H HDL Cholesterol 79 H Urine Creatinine 11/13/17 11/13/17 11/13/17 13:45 16:31 17:54 WBC Hct RDW Lymph % (Auto) Adams % (Auto) Lymph # Adams # Seg Neutrophils % Seg Neuts % (Manual) Lymphocytes % (Manual) Monocytes % (Manual) Seg Neutrophils # Seg Neutrophils # Man Monocytes # (Manual) D-Dimer POC ABG pH 7.143 L 7.114 L POC ABG pCO2 98.8 H 108.1 H POC ABG pO2 55 L Potassium Chloride Carbon Dioxide BUN Creatinine Glucose POC Glucose Calcium Total Creatine Kinase Troponin T 0.077 H NT-Pro-B Natriuret Pep Cholesterol HDL Cholesterol Urine Creatinine 11/13/17 11/13/17 11/14/17 17:56 18:06 03:19 WBC Hct RDW Lymph % (Auto) Adams % (Auto) Lymph # Adams # Seg Neutrophils % Seg Neuts % (Manual) Lymphocytes % (Manual) Monocytes % (Manual) Seg Neutrophils # Seg Neutrophils # Man Monocytes # (Manual) D-Dimer POC ABG pH 7.480 H POC ABG pCO2 51.2 H POC ABG pO2 154 H 61 L Potassium Chloride Carbon Dioxide BUN Creatinine Glucose POC Glucose 137 H Calcium Total Creatine Kinase Troponin T NT-Pro-B Natriuret Pep Cholesterol HDL Cholesterol Urine Creatinine 11/14/17 11/14/17 11/14/17 03:55 11:20 11:59 WBC Hct RDW Lymph % (Auto) Adams % (Auto) Lymph # Adams # Seg Neutrophils % Seg Neuts % (Manual) Lymphocytes % (Manual) Monocytes % (Manual) Seg Neutrophils # Seg Neutrophils # Man Monocytes # (Manual) D-Dimer 494.15 H POC ABG pH POC ABG pCO2 POC ABG pO2 Potassium Chloride 93.4 L Carbon Dioxide BUN 26 H Creatinine 1.3 H D Glucose 164 H POC Glucose 120 H Calcium Total Creatine Kinase Troponin T NT-Pro-B Natriuret Pep Cholesterol HDL Cholesterol Urine Creatinine 11/14/17 11/14/17 11/15/17 16:10 21:41 03:41 WBC 13.6 H Hct 44.9 H RDW 16.8 H Lymph % (Auto) Adams % (Auto) Lymph # Adams # Seg Neutrophils % Seg Neuts % (Manual) Lymphocytes % (Manual) Monocytes % (Manual) Seg Neutrophils # Seg Neutrophils # Man Monocytes # (Manual) D-Dimer POC ABG pH POC ABG pCO2 POC ABG pO2 Potassium Chloride Carbon Dioxide BUN Creatinine Glucose POC Glucose 114 H 160 H Calcium Total Creatine Kinase Troponin T NT-Pro-B Natriuret Pep Cholesterol HDL Cholesterol Urine Creatinine 11/15/17 11/15/17 11/15/17 04:02 05:10 07:52 WBC Hct RDW Lymph % (Auto) Adams % (Auto) Lymph # Adams # Seg Neutrophils % Seg Neuts % (Manual) Lymphocytes % (Manual) Monocytes % (Manual) Seg Neutrophils # Seg Neutrophils # Man Monocytes # (Manual) D-Dimer POC ABG pH 7.244 L POC ABG pCO2 73.7 H POC ABG pO2 Potassium 5.7 H Chloride 97.8 L Carbon Dioxide BUN 35 H Creatinine 1.8 H Glucose 175 H POC Glucose 125 H Calcium 8.1 L Total Creatine Kinase Troponin T NT-Pro-B Natriuret Pep Cholesterol HDL Cholesterol Urine Creatinine 11/15/17 11/15/17 11/15/17 09:20 12:51 13:21 WBC Hct RDW Lymph % (Auto) Adams % (Auto) Lymph # Adams # Seg Neutrophils % Seg Neuts % (Manual) Lymphocytes % (Manual) Monocytes % (Manual) Seg Neutrophils # Seg Neutrophils # Man Monocytes # (Manual) D-Dimer POC ABG pH 7.453 H POC ABG pCO2 51.5 H POC ABG pO2 Potassium Chloride Carbon Dioxide BUN Creatinine Glucose POC Glucose 109 H Calcium Total Creatine Kinase Troponin T NT-Pro-B Natriuret Pep Cholesterol HDL Cholesterol Urine Creatinine 132.6 H 11/15/17 11/15/17 11/16/17 18:27 23:42 04:29 WBC Hct RDW Lymph % (Auto) Adams % (Auto) Lymph # Adams # Seg Neutrophils % Seg Neuts % (Manual) Lymphocytes % (Manual) Monocytes % (Manual) Seg Neutrophils # Seg Neutrophils # Man Monocytes # (Manual) D-Dimer POC ABG pH 7.278 L POC ABG pCO2 81.6 H POC ABG pO2 Potassium Chloride Carbon Dioxide BUN Creatinine Glucose POC Glucose 124 H 132 H Calcium Total Creatine Kinase Troponin T NT-Pro-B Natriuret Pep Cholesterol HDL Cholesterol Urine Creatinine 11/16/17 11/16/17 11/16/17 04:30 05:01 13:20 WBC Hct RDW Lymph % (Auto) Adams % (Auto) Lymph # Adams # Seg Neutrophils % Seg Neuts % (Manual) Lymphocytes % (Manual) Monocytes % (Manual) Seg Neutrophils # Seg Neutrophils # Man Monocytes # (Manual) D-Dimer POC ABG pH POC ABG pCO2 POC ABG pO2 Potassium Chloride 97.3 L Carbon Dioxide 35 H BUN 35 H Creatinine Glucose 131 H POC Glucose 113 H 141 H Calcium Total Creatine Kinase Troponin T NT-Pro-B Natriuret Pep Cholesterol HDL Cholesterol Urine Creatinine 11/16/17 11/16/17 11/17/17 18:01 23:30 06:05 WBC Hct RDW Lymph % (Auto) Adams % (Auto) Lymph # Adams # Seg Neutrophils % Seg Neuts % (Manual) Lymphocytes % (Manual) Monocytes % (Manual) Seg Neutrophils # Seg Neutrophils # Man Monocytes # (Manual) D-Dimer POC ABG pH POC ABG pCO2 POC ABG pO2 Potassium Chloride Carbon Dioxide BUN Creatinine Glucose POC Glucose 198 H 147 H 144 H Calcium Total Creatine Kinase Troponin T NT-Pro-B Natriuret Pep Cholesterol HDL Cholesterol Urine Creatinine 11/17/17 11/17/17 11/17/17 06:06 07:49 07:49 WBC Hct RDW 16.0 H Lymph % (Auto) 4.0 L Adams % (Auto) 8.0 H Lymph # 0.4 L Adams # 0.9 H Seg Neutrophils % 87.6 H Seg Neuts % (Manual) Lymphocytes % (Manual) Monocytes % (Manual) Seg Neutrophils # 9.4 H Seg Neutrophils # Man Monocytes # (Manual) D-Dimer POC ABG pH 7.453 H POC ABG pCO2 POC ABG pO2 Potassium Chloride Carbon Dioxide BUN 35 H Creatinine Glucose 168 H POC Glucose Calcium Total Creatine Kinase Troponin T NT-Pro-B Natriuret Pep Cholesterol HDL Cholesterol Urine Creatinine 11/17/17 10:01 WBC Hct RDW Lymph % (Auto) Adams % (Auto) Lymph # Adams # Seg Neutrophils % Seg Neuts % (Manual) Lymphocytes % (Manual) Monocytes % (Manual) Seg Neutrophils # Seg Neutrophils # Man Monocytes # (Manual) D-Dimer POC ABG pH 7.287 L POC ABG pCO2 63.7 H POC ABG pO2 Potassium Chloride Carbon Dioxide BUN Creatinine Glucose POC Glucose Calcium Total Creatine Kinase Troponin T NT-Pro-B Natriuret Pep Cholesterol HDL Cholesterol Urine Creatinine Allied health notes reviewed: nursing
--- NOTE | 2017-11-17 11:11 | Progress Note ---
Assessment and Plan Acute hypercapnic respiratory failure on vent b/L pulmonary edema vs INEZ resolved Acute metabolic encephalopathy, from hypercapnea - Acute exacerbation of asthma Hypertensive malignancy, on admission now normo to hypotensive NStemi type 2 acute renal insufficency morbid obesity rec: cont current management, normal lv function, normal coronaries on cath last year. restart bp meds once extubated, cont iv hydralzine as needed. Subjective Date of service: 11/17/17 Principal diagnosis: Acute Hypoxemic Hypercapnic respiratory failure; Acute Encephalopathy; HTN Interval history: pt is on vent , wanting tube out Objective Vital Signs Temp Pulse Pulse Pulse Pulse Pulse Pulse 11/17/17 10:03 60 11/17/17 09:58 69 11/17/17 08:18 84 11/17/17 08:00 99.0 F 65 11/17/17 07:38 82 11/17/17 07:34 74 11/17/17 06:00 54 L 11/17/17 05:54 66 11/17/17 05:30 52 L 11/17/17 05:00 55 L 11/17/17 04:30 71 11/17/17 04:00 97.9 F 73 11/17/17 03:30 50 L 11/17/17 03:00 52 L 11/17/17 02:30 52 L 11/17/17 02:00 70 11/17/17 01:30 78 11/17/17 01:00 11/17/17 00:30 70 11/17/17 00:11 97.8 F 11/17/17 00:00 78 11/16/17 23:41 74 11/16/17 23:30 68 11/16/17 23:06 92 H 11/16/17 23:00 70 11/16/17 22:30 71 11/16/17 22:00 69 11/16/17 21:30 73 11/16/17 21:00 80 11/16/17 20:30 68 11/16/17 20:23 97.3 F L 11/16/17 20:00 48 L 45 L 62 62 62 11/16/17 19:30 64 11/16/17 19:00 84 11/16/17 18:30 73 11/16/17 18:00 78 11/16/17 17:30 42 L 11/16/17 17:00 52 L 11/16/17 16:30 53 L 11/16/17 16:00 98.3 F 72 11/16/17 15:30 76 11/16/17 15:20 58 L 11/16/17 15:00 63 11/16/17 14:30 52 L 11/16/17 14:00 47 L 11/16/17 13:41 52 L 11/16/17 13:31 50 L 11/16/17 13:30 49 L 11/16/17 13:00 61 11/16/17 12:30 53 L 11/16/17 12:00 98.6 F 54 L 11/16/17 11:46 60 11/16/17 11:30 79 Resp Resp Resp BP Pulse Ox 11/17/17 10:03 164/94 93 11/17/17 09:58 22 164/94 99 11/17/17 08:18 20 144/75 98 11/17/17 08:00 21 11/17/17 07:38 22 11/17/17 07:34 130/68 98 11/17/17 06:00 19 162/81 94 11/17/17 05:54 98 11/17/17 05:30 17 154/81 98 11/17/17 05:00 18 154/81 93 11/17/17 04:30 18 164/93 98 11/17/17 04:00 17 164/93 98 11/17/17 03:30 20 129/63 96 11/17/17 03:00 20 129/63 93 11/17/17 02:30 20 175/91 96 11/17/17 02:00 20 162/88 96 11/17/17 01:30 20 162/88 75 L 11/17/17 01:00 20 162/88 11/17/17 00:30 19 167/89 97 11/17/17 00:11 11/17/17 00:00 15 180/150 96 11/16/17 23:41 97 11/16/17 23:30 20 167/89 93 11/16/17 23:06 20 181/96 95 11/16/17 23:00 20 181/96 92 11/16/17 22:30 20 158/82 91 11/16/17 22:00 20 159/83 91 04/21/18 21:30 20 149/85 92 11/16/17 21:00 16 150/82 90 11/16/17 20:30 20 155/89 95 11/16/17 20:23 11/16/17 20:00 20 20 159/93 96 11/16/17 19:30 14 157/83 98 11/16/17 19:00 21 144/96 90 11/16/17 18:30 20 130/92 97 11/16/17 18:00 17 154/92 97 11/16/17 17:30 20 154/92 94 11/16/17 17:00 22 160/83 94 11/16/17 16:30 20 157/87 93 11/16/17 16:00 18 145/122 98 11/16/17 15:30 16 168/88 91 11/16/17 15:20 95 11/16/17 15:00 16 168/88 92 11/16/17 14:30 21 139/79 94 11/16/17 14:00 20 174/89 95 11/16/17 13:41 20 11/16/17 13:31 20 11/16/17 13:30 19 159/80 95 11/16/17 13:00 18 157/85 93 11/16/17 12:30 19 158/76 93 11/16/17 12:00 20 172/84 95 11/16/17 11:46 96 11/16/17 11:30 20 187/99 93 - Physical Examination General: No Apparent Distress, Other (intubated) HEENT: Positive: PERRL, Normocephaly Neck: Positive: neck supple, trachea midline Cardiac: Positive: Reg Rate and Rhythm Lungs: Positive: clear to auscultation Neuro: Positive: Grossly Intact, Other (intubated) Abdomen: Positive: Active Bowel Sounds Skin: Positive: Clear. Negative: Rash, Wound Musculoskeletal: No Pain, Normal Range of Motion Extremities: Absent: edema (trace BLE) - Labs and Meds CBC 11/17/17 Range/Units 07:49 WBC 10.7 (4.5-11.0) K/mm3 RBC 4.47 (3.65-5.03) M/mm3 Hgb 12.9 (10.1-14.3) gm/dl Hct 40.3 (30.3-42.9) % Plt Count 228 (140-440) K/mm3 Lymph # 0.4 L (1.2-5.4) K/mm3 [place] # 0.9 H (0.0-0.8) K/mm3 Eos # 0.0 (0.0-0.4) K/mm3 Baso # 0.0 (0.0-0.1) K/mm3 Comprehensive Metabolic Panel 11/17/17 Range/Units 07:49 Sodium 140 (137-145) mmol/L Potassium 4.6 (3.6-5.0) mmol/L Chloride 100.7 (98-107) mmol/L Carbon Dioxide 27 D (22-30) mmol/L BUN 35 H (7-17) mg/dL Creatinine 0.9 (0.7-1.2) mg/dL Glucose 168 H (65-100) mg/dL Calcium 9.7 (8.4-10.2) mg/dL - Imaging and Cardiology EKG: report reviewed, image reviewed Echo: report reviewed (11/13/2017 normal lv function, mild as and normal rvsp ) Cardiac cath: report reviewed (11/2016 showed patent coronaries, hypertensive vessels, large epicardial vessels, mod to severe tortuosity of vessels, normal LV function. ) - Telemetry EKG Rhythm: Sinus Bradycardia - EKG Sinus rhythms and dysrhythmias: sinus rhythm Chamber hypertrophy or enlargement: left ventricular hypertro Repolarization changes or abnormalities: repolarization abn secondary to ventricular hypertrophy - Allied health notes Allied health notes reviewed: nursing
--- NOTE | 2017-11-17 11:53 | Progress Note ---
Assessment and Plan Acute hypercapnic respiratory failure - likley from acute asthma exacerbation and worsening pulmonary edema? -We'll monitor the patient to ICU, Weaned off from vent, s/p extubation today - Will provide scheduled nebulizers breathing treatment, cont biPAP - cont on empiric steroid and antibiotic - pulmonary following b/L pulmonary edema vs INEZ - Cxr on 11/15 showed worsening pulmonary edema and pleural effusion - treated with lasix - repeat CXR showed improvement Acute metabolic encephalopathy, from hypercapnea - pt is at her baseline now and can communicate with writting Acute exacerbation of asthma - cont scheduled nebulizers breathing treatment, empiric tapering steroid and antibiotic Hypertensive malignancy, on admission now normo to hypotensive - placed on home medications following admission but never received - stopped all meds for low BP, hydralazine as needed Elevated troponin/NSTEMI type 2 - cardiology following, preserved EF on 2D ceho SIRS, with mild leukocytosis, tachycardia and tachypnea - likely from acute asthma exacerbation h/o CVA - aspirin statin for now [place], now resolved - likely from hypotensive episodes, Cr increased upto1.8 - hold all BP meds, nephrology consulted hyperkalemia, K was upto 5.7 - ordered hyperkalemia cocktail, resolved Morbid obesity - 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 PPI for GI Px Physical Exam: GENERAL: well-developed morbidly obese -Chinese female lying on bed on BiPAP HEENT: Normocephalic. Atraumatic. No conjunctival congestion or icterus. Patient has moist mucous membranes. NECK: Supple. Trachea midline. CHEST/LUNGS: Clear BS auscultated bilaterally, breathing nonlabored HEART/CARDIOVASCULAR: tachycardic. S1 and S2 positive. ABDOMEN: Abdomen is soft, nontender. Patient has normal bowel sounds. SKIN: There is no rash. Warm and dry. NEURO: communicates with writing, no focal deficit MUSCULOSKELETAL: No joint effusion or tenderness. EXTRIMITY: No edema, no cyanosis or clubbing. PSYCH: cooperative. Subjective Date of service: 11/17/17 Principal diagnosis: Acute Hypoxemic Hypercapnic respiratory failure; Acute Encephalopathy; HTN Interval history: pt seen and examined s/p extubation today, now on BiPAP updated family at bedside Objective - Constitutional Vitals: Vital Signs - 12hr 11/17/17 11/17/17 11/17/17 00:00 00:11 00:30 Temperature 97.8 F Pulse Rate 78 70 Pulse Rate [ Anterior Bilateral Throughout] Respiratory 15 19 Rate Respiratory Rate [Anterior Bilateral Throughout] Blood Pressure 180/150 167/89 O2 Sat by Pulse 96 97 Oximetry 11/17/17 11/17/17 11/17/17 01:00 01:30 02:00 Temperature Pulse Rate 78 70 Pulse Rate [ Anterior Bilateral Throughout] Respiratory 20 20 20 Rate Respiratory Rate [Anterior Bilateral Throughout] Blood Pressure 162/88 162/88 162/88 O2 Sat by Pulse 75 L 96 Oximetry 11/17/17 11/17/17 11/17/17 02:30 03:00 03:30 Temperature Pulse Rate 52 L 52 L 50 L Pulse Rate [ Anterior Bilateral Throughout] Respiratory 20 20 20 Rate Respiratory Rate [Anterior Bilateral Throughout] Blood Pressure 175/91 129/63 129/63 O2 Sat by Pulse 96 93 96 Oximetry 11/17/17 11/17/17 11/17/17 04:00 04:30 05:00 Temperature 97.9 F Pulse Rate 73 71 55 L Pulse Rate [ Anterior Bilateral Throughout] Respiratory 17 18 18 Rate Respiratory Rate [Anterior Bilateral Throughout] Blood Pressure 164/93 164/93 154/81 O2 Sat by Pulse 98 98 93 Oximetry 11/17/17 11/17/17 11/17/17 05:30 05:54 06:00 Temperature Pulse Rate 52 L 66 54 L Pulse Rate [ Anterior Bilateral Throughout] Respiratory 17 19 Rate Respiratory Rate [Anterior Bilateral Throughout] Blood Pressure 154/81 162/81 O2 Sat by Pulse 98 98 94 Oximetry 11/17/17 11/17/17 11/17/17 07:34 07:38 08:00 Temperature 99.0 F Pulse Rate 74 Pulse Rate [ 82 65 Anterior Bilateral Throughout] Respiratory Rate Respiratory 22 21 Rate [Anterior Bilateral Throughout] Blood Pressure 130/68 O2 Sat by Pulse 98 Oximetry 11/17/17 11/17/17 11/17/17 08:18 09:58 10:03 Temperature Pulse Rate 84 69 60 Pulse Rate [ Anterior Bilateral Throughout] Respiratory 20 22 Rate Respiratory Rate [Anterior Bilateral Throughout] Blood Pressure 144/75 164/94 164/94 O2 Sat by Pulse 98 99 93 Oximetry 11/17/17 11:45 Temperature Pulse Rate 51 L Pulse Rate [ Anterior Bilateral Throughout] Respiratory 20 Rate Respiratory Rate [Anterior Bilateral Throughout] Blood Pressure 172/87 O2 Sat by Pulse 98 Oximetry - Labs CBC & Chem 7: 11/17/17 07:49 11/17/17 07:49 Labs: Abnormal lab results 11/16/17 11/16/17 11/16/17 Range/Units 13:20 18:01 23:30 RDW (13.2-15.2) % Lymph % (Auto) (13.4-35.0) % [place] % (Auto) (0.0-7.3) % Lymph # (1.2-5.4) K/mm3 [place] # (0.0-0.8) K/mm3 Seg Neutrophils % (40.0-70.0) % Seg Neutrophils # (1.8-7.7) K/mm3 POC ABG pH (7.35-7.45) POC ABG pCO2 (35-45) BUN (7-17) mg/dL Glucose (65-100) mg/dL POC Glucose 141 H 198 H 147 H (70-105) 11/17/17 11/17/17 11/17/17 Range/Units 06:05 06:06 07:49 RDW (13.2-15.2) % Lymph % (Auto) (13.4-35.0) % [place] % (Auto) (0.0-7.3) % Lymph # (1.2-5.4) K/mm3 [place] # (0.0-0.8) K/mm3 Seg Neutrophils % (40.0-70.0) % Seg Neutrophils # (1.8-7.7) K/mm3 POC ABG pH 7.453 H (7.35-7.45) POC ABG pCO2 (35-45) BUN 35 H (7-17) mg/dL Glucose 168 H (65-100) mg/dL POC Glucose 144 H (70-105) 11/17/17 11/17/17 Range/Units 07:49 10:01 RDW 16.0 H (13.2-15.2) % Lymph % (Auto) 4.0 L (13.4-35.0) % [place] % (Auto) 8.0 H (0.0-7.3) % Lymph # 0.4 L (1.2-5.4) K/mm3 [place] # 0.9 H (0.0-0.8) K/mm3 Seg Neutrophils % 87.6 H (40.0-70.0) % Seg Neutrophils # 9.4 H (1.8-7.7) K/mm3 POC ABG pH 7.287 L (7.35-7.45) POC ABG pCO2 63.7 H (35-45) BUN (7-17) mg/dL Glucose (65-100) mg/dL POC Glucose (70-105)
[2017-11-17] MEDS: HumuLIN R SUB-Q SCH ×4 (12:53→23:37)
[2017-11-17] MEDS: MORPHINE IV PRN ×2 (21:02→23:35)
--- NOTE | 2017-11-17 21:02 | XRay Report ---
FINAL REPORT PROCEDURE: XR CHEST 1V AP TECHNIQUE: Chest radiograph anteroposterior view. CPT 03346 HISTORY: Pneumothorax COMPARISON: Prior chest x-ray 11/16/2017 FINDINGS: Since the prior study endotracheal tube has been removed. An NG tube appears to be visualized however the distal end of the tube is not clearly visualized on this exam. I cannot verify the location of the distal end of the NG tube. There is a PICC line seen entering from the right. Tip projects over the proximal SVC. This is unchanged. There is improved aeration in the right lung base since the prior study. There is still hazy density and some of the or consolidation suggesting right lower lobe atelectasis or infiltrate with adjacent right effusion. Retrocardiac density on the left is unchanged suggesting atelectasis infiltrate and possibly left effusion. There is no pneumothorax identified. Heart appears to be enlarged. The pulmonary vasculature is not distended. No acute bony abnormalities are seen. IMPRESSION: Endotracheal tube appears to been removed. NG tube in place although the distal end of the tube is not identified. PICC line entering from the right is unchanged. No evidence of pneumothorax. Improved aeration right lung base. There still appears to be an effusion with adjacent atelectasis or infiltrate. Consolidation in the left lower lobe and probable small left effusion is also unchanged..
[2017-11-18] MEDS: HumuLIN R SUB-Q SCH ×5 (00:28→18:25)
[2017-11-18] MEDS: XANAX PO PRN (02:07)
[2017-11-18] MEDS: DIAMOX IV SCH (02:07)
[2017-11-18] MEDS: DUONEB *Not for PRN Use IH SCH ×4 (02:13→20:01)
[2017-11-18 08:41] LABS: BUN/Creatinine Ratio 51; Blood Urea Nitrogen 36 mg/dL (7-17); Calcium 9.6 mg/dL (8.4-10.2); Hemolysis Index 40
--- NOTE | 2017-11-18 08:56 | Progress Note ---
Assessment and Plan 1. Acute kidney injury: Hemodynamic / Vasomotor mediated URIEL in the setting of low BP. Renal function is better. 2. Hyperkalemia: Kayexalate. 3. Hypotension: Improved. 4. Respiratory failure: s/p extubated. Subjective Date of service: 11/18/17 Principal diagnosis: Acute Hypoxemic Hypercapnic respiratory failure; Acute Encephalopathy; HTN Interval history: Patient was seen and examined at the bedside. Objective - Vital Signs Vital signs: Vital Signs - 12hr 11/17/17 11/17/17 11/17/17 21:00 21:31 21:47 Temperature Pulse Rate 69 65 77 Pulse Rate [ Anterior Bilateral Throughout] Pulse Rate [ Anterior Left Throughout] Pulse Rate [ Apical] Respiratory 20 Rate Respiratory Rate [Anterior Bilateral Throughout] Respiratory Rate [Anterior Left Throughout ] Blood Pressure 138/77 138/77 138/77 O2 Sat by Pulse 89 93 98 Oximetry 11/17/17 11/17/17 11/17/17 22:01 22:31 23:00 Temperature Pulse Rate 68 62 69 Pulse Rate [ Anterior Bilateral Throughout] Pulse Rate [ Anterior Left Throughout] Pulse Rate [ Apical] Respiratory Rate Respiratory Rate [Anterior Bilateral Throughout] Respiratory Rate [Anterior Left Throughout ] Blood Pressure 182/97 182/97 164/104 O2 Sat by Pulse 88 99 85 Oximetry 11/17/17 11/18/17 11/18/17 23:31 00:00 00:31 Temperature 98.5 F Pulse Rate 65 68 74 Pulse Rate [ Anterior Bilateral Throughout] Pulse Rate [ Anterior Left Throughout] Pulse Rate [ Apical] Respiratory Rate Respiratory Rate [Anterior Bilateral Throughout] Respiratory Rate [Anterior Left Throughout ] Blood Pressure 164/104 185/105 185/105 O2 Sat by Pulse 97 93 94 Oximetry 11/18/17 11/18/17 11/18/17 01:00 01:31 02:00 Temperature Pulse Rate 53 L 73 69 Pulse Rate [ Anterior Bilateral Throughout] Pulse Rate [ 62 Anterior Left Throughout] Pulse Rate [ Apical] Respiratory Rate Respiratory Rate [Anterior Bilateral Throughout] Respiratory 20 Rate [Anterior Left Throughout ] Blood Pressure 138/64 138/64 181/104 O2 Sat by Pulse 87 96 89 Oximetry 11/18/17 11/18/17 11/18/17 02:31 03:00 03:31 Temperature Pulse Rate 69 58 L 52 L Pulse Rate [ Anterior Bilateral Throughout] Pulse Rate [ Anterior Left Throughout] Pulse Rate [ Apical] Respiratory Rate Respiratory Rate [Anterior Bilateral Throughout] Respiratory Rate [Anterior Left Throughout ] Blood Pressure 181/104 134/74 134/74 O2 Sat by Pulse 97 94 97 Oximetry 11/18/17 11/18/17 11/18/17 04:00 04:31 05:00 Temperature 98.4 F Pulse Rate 48 L 48 L 57 L Pulse Rate [ Anterior Bilateral Throughout] Pulse Rate [ Anterior Left Throughout] Pulse Rate [ 62 Apical] Respiratory 22 Rate Respiratory Rate [Anterior Bilateral Throughout] Respiratory Rate [Anterior Left Throughout ] Blood Pressure 122/61 122/61 183/115 O2 Sat by Pulse 93 95 98 Oximetry 11/18/17 11/18/17 11/18/17 05:31 06:00 06:31 Temperature Pulse Rate 69 61 52 L Pulse Rate [ Anterior Bilateral Throughout] Pulse Rate [ Anterior Left Throughout] Pulse Rate [ Apical] Respiratory Rate Respiratory Rate [Anterior Bilateral Throughout] Respiratory Rate [Anterior Left Throughout ] Blood Pressure 176/99 170/98 170/98 O2 Sat by Pulse 97 93 97 Oximetry 11/18/17 11/18/17 11/18/17 07:00 07:51 07:55 Temperature Pulse Rate 51 L Pulse Rate [ Anterior Bilateral Throughout] Pulse Rate [ 61 Anterior Left Throughout] Pulse Rate [ Apical] Respiratory Rate Respiratory Rate [Anterior Bilateral Throughout] Respiratory 20 Rate [Anterior Left Throughout ] Blood Pressure 136/75 O2 Sat by Pulse 92 98 Oximetry 11/18/17 08:09 Temperature Pulse Rate Pulse Rate [ 66 Anterior Bilateral Throughout] Pulse Rate [ Anterior Left Throughout] Pulse Rate [ Apical] Respiratory Rate Respiratory 20 Rate [Anterior Bilateral Throughout] Respiratory Rate [Anterior Left Throughout ] Blood Pressure O2 Sat by Pulse Oximetry - General Appearance General appearance: well-developed, well-nourished, appears stated age, obese, other (no distress, NG tube noted) EENT: ATNC, PERRL, hearing intact, vision intact Neck: supple Respiratory: Present: Clear to Ascultation Cardiology: regular, S1S2, no murmurs Gastrointestinal: normoactive bowel sounds, no tenderness, no distended, obese Integumentary: no rash, warm and dry Neurologic: no focal deficit, no asterixis Musculoskeletal: other (no edema) Psychiatric: mood/affect appropriate, cooperative - Lab 11/17/17 07:49 11/18/17 08:00 Most recent lab results Calcium 9.6 mg/dL (8.4-10.2) 11/18/17 08:00 Urine Creatinine 132.6 mg/dL (0.1-20.0) H 11/15/17 09:20 Urine Sodium 63 mmol/L 11/15/17 09:20
[2017-11-18] MEDS: MORPHINE IV PRN (09:23)
[2017-11-18] MEDS: HEPARIN SUB-Q SCH ×2 (09:24→21:22)
[2017-11-18] MEDS: HALFPRIN EC PO SCH (09:25)
[2017-11-18] MEDS: PEPCID PO SCH ×2 (09:25→21:22)
[2017-11-18] MEDS: LEVAQUIN 750MG/150ML 750 MG/150 ML BAG IV SCH (09:25)
--- NOTE | 2017-11-18 09:40 | Progress Note ---
Assessment and Plan Resume PO hydralazine and titrate as tolerated. Avoid BB given h/o asthma and ACEI/ARB given intermittent hyperkalemia. Will defer diuresis to nephrology. The patient has been seen in conjunction with Dr. MICHELLE Kiser who agrees with the assessment and plan of care. - Patient Problems (1) Acute respiratory failure Current Visit: Yes Status: Acute (2) CO2 narcosis Current Visit: Yes Status: Acute (3) (HFpEF) heart failure with preserved ejection fraction Current Visit: Yes Status: Acute (4) Hypertensive urgency Current Visit: Yes Status: Acute (5) Elevated troponin Current Visit: Yes (6) Asthma Current Visit: Yes Status: Chronic (7) History of CVA (cerebrovascular accident) Current Visit: Yes Status: Acute (8) Hyperlipidemia Current Visit: Yes Status: Chronic (9) Aortic stenosis Current Visit: Yes Status: Chronic (10) Morbid obesity Current Visit: Yes Status: Chronic Subjective Date of service: 11/18/17 Principal diagnosis: Acute Hypoxemic Hypercapnic respiratory failure; Acute Encephalopathy; HTN Interval history: pt resting in bed, was extubated yesterday evening. A&O, no current complaints. BPs elevated. Objective Last Vital Signs Temp 98.4 F 11/18/17 04:00 Pulse 66 11/18/17 08:09 Resp 22 11/18/17 09:23 BP 136/75 11/18/17 07:00 Pulse Ox 98 11/18/17 07:51 - Physical Examination General: No Apparent Distress, Other (intubated) HEENT: Positive: PERRL, Normocephaly Neck: Positive: neck supple, trachea midline Cardiac: Positive: Reg Rate and Rhythm, S1/S2, Systolic Murmur Lungs: Positive: Decreased Breath Sounds Neuro: Positive: Grossly Intact, Other (intubated) Abdomen: Positive: Active Bowel Sounds Skin: Positive: Clear. Negative: Rash, Wound Musculoskeletal: No Pain, Normal Range of Motion Extremities: Absent: edema (trace BLE) - Labs and Meds Comprehensive Metabolic Panel 11/17/17 11/18/17 Range/Units 07:49 08:00 Sodium 140 135 L (137-145) mmol/L Potassium 4.6 5.2 H (3.6-5.0) mmol/L Chloride 100.7 99.3 (98-107) mmol/L Carbon Dioxide 27 D 23 (22-30) mmol/L BUN 35 H 36 H (7-17) mg/dL Creatinine 0.9 0.7 (0.7-1.2) mg/dL Glucose 168 H 176 H (65-100) mg/dL Calcium 9.7 9.6 (8.4-10.2) mg/dL - Imaging and Cardiology EKG: report reviewed, image reviewed Echo: report reviewed (11/13/2017 normal lv function, mild as and normal rvsp ) Cardiac cath: report reviewed (11/2016 showed patent coronaries, hypertensive vessels, large epicardial vessels, mod to severe tortuosity of vessels, normal LV function. ) - EKG Sinus rhythms and dysrhythmias: sinus rhythm Chamber hypertrophy or enlargement: left ventricular hypertro Repolarization changes or abnormalities: repolarization abn secondary to ventricular hypertrophy - Allied health notes Allied health notes reviewed: nursing
[2017-11-18] MEDS: APRESOLINE PO SCH ×3 (10:29→21:22)
--- NOTE | 2017-11-18 10:56 | Progress Note ---
Assessment and Plan Acute hypercapnic hypoxemic respiratory failure Acute metabolic encephalopathy Hypertensive Urgency Acute exacerbation of asthma Morbid obesity Elevated troponin SIRS URIEL - continue MVS, reduce set rate and attempt SBT's if tolerates reduced minute ventilation - avoid oversedation - continue bronchodilators with pulmonary hygiene per RT - continue lung protective strategies - continue empiric Antibiotics; follow microbiology and clinically for de- escalation - continue systemic steroids - diuretics to be held re: Azotemia - enteral nutrion as tolerated - continue accucheck with glycemic control per SSI - continue GI & VTE prophylaxis - ACS w/up, Serial troponins, 2D echocardiogram per cardiology (follow 2D ECHO report re: CHF vs ARDS issues) - continue other care per attending / other consultants ..... case discussed at length during rounds and care plan formulated ... 35' CCT Subjective Date of service: 11/18/17 Principal diagnosis: Acute Hypoxemic Hypercapnic respiratory failure; Acute Encephalopathy; HTN Interval history: Patient is seen today for: Acute Hypoxemic Hypercapnic respiratory failure; Acute Encephalopathy; HTN Seen and examined at bedside; 24hour events reviewed; nursing and respiratory care staff consulted; no adverse overnight events reported to me; Objective Vital Signs - 12hr 11/17/17 11/17/17 11/18/17 23:00 23:31 00:00 Temperature 98.5 F Pulse Rate 69 65 68 Pulse Rate [ Anterior Bilateral Throughout] Pulse Rate [ Anterior Left Throughout] Pulse Rate [ Apical] Respiratory Rate Respiratory Rate [Anterior Bilateral Throughout] Respiratory Rate [Anterior Left Throughout ] Blood Pressure 164/104 164/104 185/105 O2 Sat by Pulse 85 97 93 Oximetry 11/18/17 11/18/17 11/18/17 00:31 01:00 01:31 Temperature Pulse Rate 74 53 L 73 Pulse Rate [ Anterior Bilateral Throughout] Pulse Rate [ Anterior Left Throughout] Pulse Rate [ Apical] Respiratory Rate Respiratory Rate [Anterior Bilateral Throughout] Respiratory Rate [Anterior Left Throughout ] Blood Pressure 185/105 138/64 138/64 O2 Sat by Pulse 94 87 96 Oximetry 11/18/17 11/18/17 11/18/17 02:00 02:31 03:00 Temperature Pulse Rate 69 69 58 L Pulse Rate [ Anterior Bilateral Throughout] Pulse Rate [ 62 Anterior Left Throughout] Pulse Rate [ Apical] Respiratory Rate Respiratory Rate [Anterior Bilateral Throughout] Respiratory 20 Rate [Anterior Left Throughout ] Blood Pressure 181/104 181/104 134/74 O2 Sat by Pulse 89 97 94 Oximetry 11/18/17 11/18/17 11/18/17 03:31 04:00 04:31 Temperature 98.4 F Pulse Rate 52 L 48 L 48 L Pulse Rate [ Anterior Bilateral Throughout] Pulse Rate [ Anterior Left Throughout] Pulse Rate [ 62 Apical] Respiratory 22 Rate Respiratory Rate [Anterior Bilateral Throughout] Respiratory Rate [Anterior Left Throughout ] Blood Pressure 134/74 122/61 122/61 O2 Sat by Pulse 97 93 95 Oximetry 11/18/17 11/18/17 11/18/17 05:00 05:31 06:00 Temperature Pulse Rate 57 L 69 61 Pulse Rate [ Anterior Bilateral Throughout] Pulse Rate [ Anterior Left Throughout] Pulse Rate [ Apical] Respiratory Rate Respiratory Rate [Anterior Bilateral Throughout] Respiratory Rate [Anterior Left Throughout ] Blood Pressure 183/115 176/99 170/98 O2 Sat by Pulse 98 97 93 Oximetry 11/18/17 11/18/17 11/18/17 06:31 07:00 07:15 Temperature Pulse Rate 52 L 51 L 54 L Pulse Rate [ Anterior Bilateral Throughout] Pulse Rate [ Anterior Left Throughout] Pulse Rate [ Apical] Respiratory Rate Respiratory Rate [Anterior Bilateral Throughout] Respiratory Rate [Anterior Left Throughout ] Blood Pressure 170/98 136/75 136/75 O2 Sat by Pulse 97 92 98 Oximetry 11/18/17 11/18/17 11/18/17 07:31 07:45 07:51 Temperature Pulse Rate 72 57 L Pulse Rate [ Anterior Bilateral Throughout] Pulse Rate [ Anterior Left Throughout] Pulse Rate [ Apical] Respiratory Rate Respiratory Rate [Anterior Bilateral Throughout] Respiratory Rate [Anterior Left Throughout ] Blood Pressure 136/75 136/75 O2 Sat by Pulse 97 98 98 Oximetry 11/18/17 11/18/17 11/18/17 07:55 08:00 08:09 Temperature 98.3 F Pulse Rate 65 Pulse Rate [ 66 Anterior Bilateral Throughout] Pulse Rate [ 61 Anterior Left Throughout] Pulse Rate [ Apical] Respiratory Rate Respiratory 20 Rate [Anterior Bilateral Throughout] Respiratory 20 Rate [Anterior Left Throughout ] Blood Pressure 164/95 O2 Sat by Pulse 94 Oximetry 11/18/17 11/18/17 11/18/17 08:15 08:31 08:45 Temperature Pulse Rate 73 66 71 Pulse Rate [ Anterior Bilateral Throughout] Pulse Rate [ Anterior Left Throughout] Pulse Rate [ Apical] Respiratory Rate Respiratory Rate [Anterior Bilateral Throughout] Respiratory Rate [Anterior Left Throughout ] Blood Pressure 164/95 164/95 164/95 O2 Sat by Pulse 99 96 96 Oximetry 11/18/17 11/18/17 11/18/17 09:00 09:15 09:23 Temperature Pulse Rate 69 70 Pulse Rate [ Anterior Bilateral Throughout] Pulse Rate [ Anterior Left Throughout] Pulse Rate [ Apical] Respiratory 22 Rate Respiratory Rate [Anterior Bilateral Throughout] Respiratory Rate [Anterior Left Throughout ] Blood Pressure 177/89 181/97 O2 Sat by Pulse 93 96 Oximetry 11/18/17 11/18/17 11/18/17 09:31 09:45 10:00 Temperature Pulse Rate 69 66 59 L Pulse Rate [ Anterior Bilateral Throughout] Pulse Rate [ Anterior Left Throughout] Pulse Rate [ Apical] Respiratory Rate Respiratory Rate [Anterior Bilateral Throughout] Respiratory Rate [Anterior Left Throughout ] Blood Pressure 181/97 173/91 148/84 O2 Sat by Pulse 95 96 91 Oximetry 11/18/17 11/18/17 10:15 10:29 Temperature Pulse Rate 59 L 73 Pulse Rate [ Anterior Bilateral Throughout] Pulse Rate [ Anterior Left Throughout] Pulse Rate [ Apical] Respiratory Rate Respiratory Rate [Anterior Bilateral Throughout] Respiratory Rate [Anterior Left Throughout ] Blood Pressure 148/84 148/84 O2 Sat by Pulse 98 Oximetry Constitutional: appears uncomfortable, other (somnolent) Eyes: non-icteric, other (moderate proptosis) ENT: oropharynx moist, other (intubated) Neck: supple, no lymphadenopathy, no JVD, other (no thyromegaly; large neck circumference) Effort: mildly labored Ascultation: Bilateral: diminished breath sounds, rales Percussion: Bilateral: not dull Cardiovascular: regular rate and rhythm, other (no rubs or murmurs) Gastrointestinal: normoactive bowel sounds, soft, non-tender, non-distended, other (no palpable HSM) Integumentary: rash (stasis dermatitis) Extremities: no cyanosis, pulses normal, no ischemia or petechiae Neurologic: normal mental status, non-focal exam, pupils equal and round, CN II- XII normal, other (mild proptosis) Psychiatric: anxious CBC and BMP: 11/17/17 07:49 11/18/17 08:00 ABG, PT/INR, D-dimer: ABG POC ABG pH 7.287 (7.35-7.45) L 11/17/17 10:01 POC ABG pCO2 63.7 (35-45) H 11/17/17 10:01 POC ABG pO2 90 (80-105) 11/17/17 10:01 POC ABG HCO3 30.5 11/17/17 10:01 POC ABG Total CO2 32 11/17/17 10:01 POC ABG O2 Sat 95 11/17/17 10:01 PT/INR, D-dimer D-Dimer 494.15 ng/mlDDU (0-234) H 11/14/17 11:20 Abnormal lab findings: Abnormal Labs 11/13/17 11/13/17 11/13/17 09:18 09:18 09:18 WBC 12.6 H Hct 44.1 H RDW 16.0 H Lymph % (Auto) [place] % (Auto) Lymph # [place] # Seg Neutrophils % Seg Neuts % (Manual) 78.0 H Lymphocytes % (Manual) 13.0 L Monocytes % (Manual) 8.0 H Seg Neutrophils # Seg Neutrophils # Man 9.8 H Monocytes # (Manual) 1.0 H D-Dimer POC ABG pH POC ABG pCO2 POC ABG pO2 Sodium Potassium Chloride 94.0 L Carbon Dioxide 32 H BUN Creatinine 0.6 L Glucose 190 H POC Glucose Calcium Total Creatine Kinase Troponin T NT-Pro-B Natriuret Pep 522.9 H Cholesterol HDL Cholesterol Urine Creatinine 11/13/17 11/13/17 11/13/17 09:18 10:53 12:02 WBC Hct RDW Lymph % (Auto) [place] % (Auto) Lymph # [place] # Seg Neutrophils % Seg Neuts % (Manual) Lymphocytes % (Manual) Monocytes % (Manual) Seg Neutrophils # Seg Neutrophils # Man Monocytes # (Manual) D-Dimer POC ABG pH 7.098 L POC ABG pCO2 118.3 H POC ABG pO2 112 H Sodium Potassium Chloride Carbon Dioxide BUN Creatinine Glucose POC Glucose Calcium Total Creatine Kinase 143 H Troponin T 0.047 H 0.087 H D NT-Pro-B Natriuret Pep Cholesterol 208 H HDL Cholesterol 79 H Urine Creatinine 11/13/17 11/13/17 11/13/17 13:45 16:31 17:54 WBC Hct RDW Lymph % (Auto) [place] % (Auto) Lymph # [place] # Seg Neutrophils % Seg Neuts % (Manual) Lymphocytes % (Manual) Monocytes % (Manual) Seg Neutrophils # Seg Neutrophils # Man Monocytes # (Manual) D-Dimer POC ABG pH 7.143 L 7.114 L POC ABG pCO2 98.8 H 108.1 H POC ABG pO2 55 L Sodium Potassium Chloride Carbon Dioxide BUN Creatinine Glucose POC Glucose Calcium Total Creatine Kinase Troponin T 0.077 H NT-Pro-B Natriuret Pep Cholesterol HDL Cholesterol Urine Creatinine 11/13/17 11/13/17 11/14/17 17:56 18:06 03:19 WBC Hct RDW Lymph % (Auto) [place] % (Auto) Lymph # [place] # Seg Neutrophils % Seg Neuts % (Manual) Lymphocytes % (Manual) Monocytes % (Manual) Seg Neutrophils # Seg Neutrophils # Man Monocytes # (Manual) D-Dimer POC ABG pH 7.480 H POC ABG pCO2 51.2 H POC ABG pO2 154 H 61 L Sodium Potassium Chloride Carbon Dioxide BUN Creatinine Glucose POC Glucose 137 H Calcium Total Creatine Kinase Troponin T NT-Pro-B Natriuret Pep Cholesterol HDL Cholesterol Urine Creatinine 11/14/17 11/14/17 11/14/17 03:55 11:20 11:59 WBC Hct RDW Lymph % (Auto) [place] % (Auto) Lymph # [place] # Seg Neutrophils % Seg Neuts % (Manual) Lymphocytes % (Manual) Monocytes % (Manual) Seg Neutrophils # Seg Neutrophils # Man Monocytes # (Manual) D-Dimer 494.15 H POC ABG pH POC ABG pCO2 POC ABG pO2 Sodium Potassium Chloride 93.4 L Carbon Dioxide BUN 26 H Creatinine 1.3 H D Glucose 164 H POC Glucose 120 H Calcium Total Creatine Kinase Troponin T NT-Pro-B Natriuret Pep Cholesterol HDL Cholesterol Urine Creatinine 11/14/17 11/14/17 11/15/17 16:10 21:41 03:41 WBC 13.6 H Hct 44.9 H RDW 16.8 H Lymph % (Auto) [place] % (Auto) Lymph # [place] # Seg Neutrophils % Seg Neuts % (Manual) Lymphocytes % (Manual) Monocytes % (Manual) Seg Neutrophils # Seg Neutrophils # Man Monocytes # (Manual) D-Dimer POC ABG pH POC ABG pCO2 POC ABG pO2 Sodium Potassium Chloride Carbon Dioxide BUN Creatinine Glucose POC Glucose 114 H 160 H Calcium Total Creatine Kinase Troponin T NT-Pro-B Natriuret Pep Cholesterol HDL Cholesterol Urine Creatinine 11/15/17 11/15/17 11/15/17 04:02 05:10 07:52 WBC Hct RDW Lymph % (Auto) [place] % (Auto) Lymph # [place] # Seg Neutrophils % Seg Neuts % (Manual) Lymphocytes % (Manual) Monocytes % (Manual) Seg Neutrophils # Seg Neutrophils # Man Monocytes # (Manual) D-Dimer POC ABG pH 7.244 L POC ABG pCO2 73.7 H POC ABG pO2 Sodium Potassium 5.7 H Chloride 97.8 L Carbon Dioxide BUN 35 H Creatinine 1.8 H Glucose 175 H POC Glucose 125 H Calcium 8.1 L Total Creatine Kinase Troponin T NT-Pro-B Natriuret Pep Cholesterol HDL Cholesterol Urine Creatinine 11/15/17 11/15/17 11/15/17 09:20 12:51 13:21 WBC Hct RDW Lymph % (Auto) [place] % (Auto) Lymph # [place] # Seg Neutrophils % Seg Neuts % (Manual) Lymphocytes % (Manual) Monocytes % (Manual) Seg Neutrophils # Seg Neutrophils # Man Monocytes # (Manual) D-Dimer POC ABG pH 7.453 H POC ABG pCO2 51.5 H POC ABG pO2 Sodium Potassium Chloride Carbon Dioxide BUN Creatinine Glucose POC Glucose 109 H Calcium Total Creatine Kinase Troponin T NT-Pro-B Natriuret Pep Cholesterol HDL Cholesterol Urine Creatinine 132.6 H 11/15/17 11/15/17 11/16/17 18:27 23:42 04:29 WBC Hct RDW Lymph % (Auto) [place] % (Auto) Lymph # [place] # Seg Neutrophils % Seg Neuts % (Manual) Lymphocytes % (Manual) Monocytes % (Manual) Seg Neutrophils # Seg Neutrophils # Man Monocytes # (Manual) D-Dimer POC ABG pH 7.278 L POC ABG pCO2 81.6 H POC ABG pO2 Sodium Potassium Chloride Carbon Dioxide BUN Creatinine Glucose POC Glucose 124 H 132 H Calcium Total Creatine Kinase Troponin T NT-Pro-B Natriuret Pep Cholesterol HDL Cholesterol Urine Creatinine 11/16/17 11/16/17 11/16/17 04:30 05:01 13:20 WBC Hct RDW Lymph % (Auto) [place] % (Auto) Lymph # [place] # Seg Neutrophils % Seg Neuts % (Manual) Lymphocytes % (Manual) Monocytes % (Manual) Seg Neutrophils # Seg Neutrophils # Man Monocytes # (Manual) D-Dimer POC ABG pH POC ABG pCO2 POC ABG pO2 Sodium Potassium Chloride 97.3 L Carbon Dioxide 35 H BUN 35 H Creatinine Glucose 131 H POC Glucose 113 H 141 H Calcium Total Creatine Kinase Troponin T NT-Pro-B Natriuret Pep Cholesterol HDL Cholesterol Urine Creatinine 11/16/17 11/16/17 11/17/17 18:01 23:30 06:05 WBC Hct RDW Lymph % (Auto) [place] % (Auto) Lymph # [place] # Seg Neutrophils % Seg Neuts % (Manual) Lymphocytes % (Manual) Monocytes % (Manual) Seg Neutrophils # Seg Neutrophils # Man Monocytes # (Manual) D-Dimer POC ABG pH POC ABG pCO2 POC ABG pO2 Sodium Potassium Chloride Carbon Dioxide BUN Creatinine Glucose POC Glucose 198 H 147 H 144 H Calcium Total Creatine Kinase Troponin T NT-Pro-B Natriuret Pep Cholesterol HDL Cholesterol Urine Creatinine 11/17/17 11/17/17 11/17/17 06:06 07:49 07:49 WBC Hct RDW 16.0 H Lymph % (Auto) 4.0 L [place] % (Auto) 8.0 H Lymph # 0.4 L [place] # 0.9 H Seg Neutrophils % 87.6 H Seg Neuts % (Manual) Lymphocytes % (Manual) Monocytes % (Manual) Seg Neutrophils # 9.4 H Seg Neutrophils # Man Monocytes # (Manual) D-Dimer POC ABG pH 7.453 H POC ABG pCO2 POC ABG pO2 Sodium Potassium Chloride Carbon Dioxide BUN 35 H Creatinine Glucose 168 H POC Glucose Calcium Total Creatine Kinase Troponin T NT-Pro-B Natriuret Pep Cholesterol HDL Cholesterol Urine Creatinine 11/17/17 11/17/17 11/17/17 10:01 12:10 18:30 WBC Hct RDW Lymph % (Auto) [place] % (Auto) Lymph # [place] # Seg Neutrophils % Seg Neuts % (Manual) Lymphocytes % (Manual) Monocytes % (Manual) Seg Neutrophils # Seg Neutrophils # Man Monocytes # (Manual) D-Dimer POC ABG pH 7.287 L POC ABG pCO2 63.7 H POC ABG pO2 Sodium Potassium Chloride Carbon Dioxide BUN Creatinine Glucose POC Glucose 167 H 133 H Calcium Total Creatine Kinase Troponin T NT-Pro-B Natriuret Pep Cholesterol HDL Cholesterol Urine Creatinine 11/17/17 11/18/17 11/18/17 23:36 05:51 08:00 WBC Hct RDW Lymph % (Auto) [place] % (Auto) Lymph # [place] # Seg Neutrophils % Seg Neuts % (Manual) Lymphocytes % (Manual) Monocytes % (Manual) Seg Neutrophils # Seg Neutrophils # Man Monocytes # (Manual) D-Dimer POC ABG pH POC ABG pCO2 POC ABG pO2 Sodium 135 L Potassium 5.2 H Chloride Carbon Dioxide BUN 36 H Creatinine Glucose 176 H POC Glucose 161 H 159 H Calcium Total Creatine Kinase Troponin T NT-Pro-B Natriuret Pep Cholesterol HDL Cholesterol Urine Creatinine Allied health notes reviewed: nursing
[2017-11-18] MEDS ORDERED: MORPHINE IV PRN (11:33)
[2017-11-18] MEDS ORDERED: NORCO 5/325 PO PRN (12:18)
[2017-11-18] MEDS: NORVASC PO SCH (12:43)
[2017-11-18] MEDS ORDERED: KIONEX PO ONE (13:00)
[2017-11-18] MEDS: TRANSDERM-SCOP TD SCH (13:41)
--- NOTE | 2017-11-18 15:47 | Progress Note ---
Assessment and Plan Acute hypercapnic respiratory failure - likley from acute asthma exacerbation and worsening pulmonary edema? -We'll monitor the patient to ICU, Weaned off from vent, s/p extubation 11/17/17 - Will provide scheduled nebulizers breathing treatment, cont biPAP as needed and bedtime - cont on empiric steroid and antibiotic - pulmonary following b/L pulmonary edema vs INEZ - Cxr on 11/15 showed worsening pulmonary edema and pleural effusion - treated with lasix - repeat CXR showed improvement Acute metabolic encephalopathy, from hypercapnea - pt is at her baseline now and can communicate with writing Acute exacerbation of asthma - cont scheduled nebulizers breathing treatment, empiric tapering steroid and antibiotic Hypertensive malignancy, on admission now normo to hypotensive - placed on home medications following admission but never received - stopped all meds for low BP, - now started on hydralazine Elevated troponin/NSTEMI type 2 - cardiology following, preserved EF on 2D ceho SIRS, with mild leukocytosis, tachycardia and tachypnea - likely from acute asthma exacerbation h/o CVA - aspirin statin for now [place], now resolved - likely from hypotensive episodes, Cr increased upto1.8 - held all BP meds, nephrology consulted hyperkalemia, K was upto 5.7 - ordered hyperkalemia cocktail, improved Morbid obesity - admissions counselor when medically stable FEN - cont TF for now, held iv fluid for worsening pulmonary edema - Provide DVT prophylaxis with Lovenox. PPI for GI Px Physical Exam: GENERAL: well-developed morbidly obese -[place] female lying on bed on BiPAP HEENT: Normocephalic. Atraumatic. No conjunctival congestion or icterus. Patient has moist mucous membranes. NECK: Supple. Trachea midline. CHEST/LUNGS: Clear BS auscultated bilaterally, breathing nonlabored HEART/CARDIOVASCULAR: tachycardic. S1 and S2 positive. ABDOMEN: Abdomen is soft, nontender. Patient has normal bowel sounds. SKIN: There is no rash. Warm and dry. NEURO: communicates with writing, no focal deficit MUSCULOSKELETAL: No joint effusion or tenderness. EXTRIMITY: No edema, no cyanosis or clubbing. PSYCH: cooperative. Subjective Date of service: 11/18/17 Principal diagnosis: Acute Hypoxemic Hypercapnic respiratory failure; Acute Encephalopathy; HTN Interval history: pt seen and examined s/p extubation 11/17/17, now on BiPAP updated family at bedside Passed speech eval Objective - Constitutional Vitals: Vital Signs - 12hr 11/18/17 11/18/17 11/18/17 04:00 04:31 05:00 Temperature 98.4 F Pulse Rate 48 L 48 L 57 L Pulse Rate [ Anterior Bilateral Throughout] Pulse Rate [ Anterior Left Throughout] Pulse Rate [ 62 Apical] Pulse Rate [ Posterior Bases ] Respiratory 22 Rate Respiratory Rate [Anterior Bilateral Throughout] Respiratory Rate [Anterior Left Throughout ] Respiratory Rate [Posterior Bases] Blood Pressure 122/61 122/61 183/115 O2 Sat by Pulse 93 95 98 Oximetry 11/18/17 11/18/17 11/18/17 05:31 06:00 06:31 Temperature Pulse Rate 69 61 52 L Pulse Rate [ Anterior Bilateral Throughout] Pulse Rate [ Anterior Left Throughout] Pulse Rate [ Apical] Pulse Rate [ Posterior Bases ] Respiratory Rate Respiratory Rate [Anterior Bilateral Throughout] Respiratory Rate [Anterior Left Throughout ] Respiratory Rate [Posterior Bases] Blood Pressure 176/99 170/98 170/98 O2 Sat by Pulse 97 93 97 Oximetry 11/18/17 11/18/17 11/18/17 07:00 07:15 07:31 Temperature Pulse Rate 51 L 54 L 72 Pulse Rate [ Anterior Bilateral Throughout] Pulse Rate [ Anterior Left Throughout] Pulse Rate [ Apical] Pulse Rate [ Posterior Bases ] Respiratory Rate Respiratory Rate [Anterior Bilateral Throughout] Respiratory Rate [Anterior Left Throughout ] Respiratory Rate [Posterior Bases] Blood Pressure 136/75 136/75 136/75 O2 Sat by Pulse 92 98 97 Oximetry 11/18/17 11/18/17 11/18/17 07:45 07:51 07:55 Temperature Pulse Rate 57 L Pulse Rate [ Anterior Bilateral Throughout] Pulse Rate [ 61 Anterior Left Throughout] Pulse Rate [ Apical] Pulse Rate [ Posterior Bases ] Respiratory Rate Respiratory Rate [Anterior Bilateral Throughout] Respiratory 20 Rate [Anterior Left Throughout ] Respiratory Rate [Posterior Bases] Blood Pressure 136/75 O2 Sat by Pulse 98 98 Oximetry 11/18/17 11/18/17 11/18/17 08:00 08:09 08:15 Temperature 98.3 F Pulse Rate 65 73 Pulse Rate [ 66 Anterior Bilateral Throughout] Pulse Rate [ Anterior Left Throughout] Pulse Rate [ Apical] Pulse Rate [ Posterior Bases ] Respiratory Rate Respiratory 20 Rate [Anterior Bilateral Throughout] Respiratory Rate [Anterior Left Throughout ] Respiratory Rate [Posterior Bases] Blood Pressure 164/95 164/95 O2 Sat by Pulse 94 99 Oximetry 11/18/17 11/18/17 11/18/17 08:31 08:45 09:00 Temperature Pulse Rate 66 71 69 Pulse Rate [ Anterior Bilateral Throughout] Pulse Rate [ Anterior Left Throughout] Pulse Rate [ Apical] Pulse Rate [ Posterior Bases ] Respiratory Rate Respiratory Rate [Anterior Bilateral Throughout] Respiratory Rate [Anterior Left Throughout ] Respiratory Rate [Posterior Bases] Blood Pressure 164/95 164/95 177/89 O2 Sat by Pulse 96 96 93 Oximetry 11/18/17 11/18/17 11/18/17 09:15 09:23 09:31 Temperature Pulse Rate 70 69 Pulse Rate [ Anterior Bilateral Throughout] Pulse Rate [ Anterior Left Throughout] Pulse Rate [ Apical] Pulse Rate [ Posterior Bases ] Respiratory 22 Rate Respiratory Rate [Anterior Bilateral Throughout] Respiratory Rate [Anterior Left Throughout ] Respiratory Rate [Posterior Bases] Blood Pressure 181/97 181/97 O2 Sat by Pulse 96 95 Oximetry 11/18/17 11/18/17 11/18/17 09:45 10:00 10:15 Temperature Pulse Rate 66 59 L 59 L Pulse Rate [ Anterior Bilateral Throughout] Pulse Rate [ Anterior Left Throughout] Pulse Rate [ Apical] Pulse Rate [ Posterior Bases ] Respiratory Rate Respiratory Rate [Anterior Bilateral Throughout] Respiratory Rate [Anterior Left Throughout ] Respiratory Rate [Posterior Bases] Blood Pressure 173/91 148/84 148/84 O2 Sat by Pulse 96 91 98 Oximetry 11/18/17 11/18/17 11/18/17 10:29 10:31 10:45 Temperature Pulse Rate 73 70 64 Pulse Rate [ Anterior Bilateral Throughout] Pulse Rate [ Anterior Left Throughout] Pulse Rate [ Apical] Pulse Rate [ Posterior Bases ] Respiratory Rate Respiratory Rate [Anterior Bilateral Throughout] Respiratory Rate [Anterior Left Throughout ] Respiratory Rate [Posterior Bases] Blood Pressure 148/84 148/84 148/84 O2 Sat by Pulse 98 97 Oximetry 11/18/17 11/18/17 11/18/17 11:01 11:15 11:31 Temperature Pulse Rate 70 56 L 65 Pulse Rate [ Anterior Bilateral Throughout] Pulse Rate [ Anterior Left Throughout] Pulse Rate [ Apical] Pulse Rate [ Posterior Bases ] Respiratory Rate Respiratory Rate [Anterior Bilateral Throughout] Respiratory Rate [Anterior Left Throughout ] Respiratory Rate [Posterior Bases] Blood Pressure 208/127 208/127 199/121 O2 Sat by Pulse 95 97 97 Oximetry 11/18/17 11/18/1711/18/18 11:45 12:00 12:15 Temperature Pulse Rate 57 L 65 63 Pulse Rate [ Anterior Bilateral Throughout] Pulse Rate [ Anterior Left Throughout] Pulse Rate [ Apical] Pulse Rate [ Posterior Bases ] Respiratory Rate Respiratory Rate [Anterior Bilateral Throughout] Respiratory Rate [Anterior Left Throughout ] Respiratory Rate [Posterior Bases] Blood Pressure 199/121 170/113 170/113 O2 Sat by Pulse 98 98 97 Oximetry 11/18/17 11/18/17 11/18/17 12:31 12:43 12:45 Temperature Pulse Rate 58 L 69 68 Pulse Rate [ Anterior Bilateral Throughout] Pulse Rate [ Anterior Left Throughout] Pulse Rate [ Apical] Pulse Rate [ Posterior Bases ] Respiratory Rate Respiratory Rate [Anterior Bilateral Throughout] Respiratory Rate [Anterior Left Throughout ] Respiratory Rate [Posterior Bases] Blood Pressure 170/113 145/77 145/77 O2 Sat by Pulse 97 98 Oximetry 11/18/17 11/18/17 11/18/17 13:00 13:15 14:42 Temperature Pulse Rate 63 55 L Pulse Rate [ Anterior Bilateral Throughout] Pulse Rate [ Anterior Left Throughout] Pulse Rate [ Apical] Pulse Rate [ 60 Posterior Bases ] Respiratory Rate Respiratory Rate [Anterior Bilateral Throughout] Respiratory Rate [Anterior Left Throughout ] Respiratory 20 Rate [Posterior Bases] Blood Pressure 173/117 173/117 O2 Sat by Pulse 97 97 Oximetry 11/18/17 14:57 Temperature Pulse Rate Pulse Rate [ 73 Anterior Bilateral Throughout] Pulse Rate [ Anterior Left Throughout] Pulse Rate [ Apical] Pulse Rate [ Posterior Bases ] Respiratory Rate Respiratory 20 Rate [Anterior Bilateral Throughout] Respiratory Rate [Anterior Left Throughout ] Respiratory Rate [Posterior Bases] Blood Pressure O2 Sat by Pulse Oximetry - Labs CBC & Chem 7: 11/17/17 07:49 11/18/17 08:00 Labs: Abnormal lab results 11/17/17 11/17/17 11/18/17 Range/Units 18:30 23:36 05:51 POC ABG pCO2 (35-45) Sodium (137-145) mmol/L Potassium (3.6-5.0) mmol/L BUN (7-17) mg/dL Glucose (65-100) mg/dL POC Glucose 133 H 161 H 159 H (70-105) 11/18/17 11/18/17 Range/Units 08:00 13:13 POC ABG pCO2 46.9 H (35-45) Sodium 135 L (137-145) mmol/L Potassium 5.2 H (3.6-5.0) mmol/L BUN 36 H (7-17) mg/dL Glucose 176 H (65-100) mg/dL POC Glucose (70-105)
[2017-11-19] MEDS: HumuLIN R SUB-Q SCH ×3 (01:22→15:06)
[2017-11-19] MEDS: APRESOLINE IV PRN ×3 (01:28→15:08)
[2017-11-19] MEDS: DUONEB *Not for PRN Use IH SCH ×2 (01:38→11:20)
[2017-11-19] MEDS: APRESOLINE PO SCH ×2 (05:50→15:07)
[2017-11-19 05:52] VITALS: BP 148/86
[2017-11-19 07:32] LABS: BUN/Creatinine Ratio 40; Blood Urea Nitrogen 28 mg/dL (7-17); Calcium 9.2 mg/dL (8.4-10.2); Hemolysis Index 29
--- NOTE | 2017-11-19 08:15 | Progress Note ---
Assessment and Plan 1. Acute kidney injury: Hemodynamic / Vasomotor mediated URIEL in the setting of low BP. Renal function is better. 2. Hyperkalemia: Improved. 3. Hypotension: Improved. 4. Respiratory failure: Inmproved. Subjective Date of service: 11/19/17 Principal diagnosis: Acute Hypoxemic Hypercapnic respiratory failure; Acute Encephalopathy; HTN Interval history: Patient was seen and examined at the bedside. Doing well. Objective - Vital Signs Vital signs: Vital Signs - 12hr 11/18/17 11/18/17 11/18/17 20:16 21:15 22:00 Temperature 98.7 F Pulse Rate 60 69 Pulse Rate [ 71 Anterior Bilateral Throughout] Respiratory 20 Rate Respiratory 18 Rate [Anterior Bilateral Throughout] Blood Pressure Blood Pressure 189/92 [Left] O2 Sat by Pulse 92 Oximetry 11/18/17 11/19/17 11/19/17 23:50 01:38 01:53 Temperature Pulse Rate 78 Pulse Rate [ 68 70 Anterior Bilateral Throughout] Respiratory 18 Rate Respiratory 20 20 Rate [Anterior Bilateral Throughout] Blood Pressure Blood Pressure [Left] O2 Sat by Pulse 98 Oximetry 11/19/17 11/19/17 11/19/17 05:00 05:15 05:50 Temperature Pulse Rate 79 79 79 Pulse Rate [ Anterior Bilateral Throughout] Respiratory Rate Respiratory Rate [Anterior Bilateral Throughout] Blood Pressure 182/117 182/117 182/117 Blood Pressure [Left] O2 Sat by Pulse 97 Oximetry 11/19/17 05:51 Temperature Pulse Rate 73 Pulse Rate [ Anterior Bilateral Throughout] Respiratory Rate Respiratory Rate [Anterior Bilateral Throughout] Blood Pressure Blood Pressure 148/86 [Left] O2 Sat by Pulse Oximetry - General Appearance General appearance: well-developed, well-nourished, appears stated age, obese, other (no distress) EENT: ATNC, PERRL, mucous membranes moist, hearing intact, vision intact Neck: supple Respiratory: Present: Clear to Ascultation Cardiology: regular, S1S2, no murmurs Gastrointestinal: normoactive bowel sounds, no tenderness, no distended Integumentary: no rash Neurologic: no focal deficit, no asterixis, alert and oriented x3 Musculoskeletal: other (no edema) Psychiatric: mood/affect appropriate, cooperative - Lab 11/17/17 07:49 11/19/17 05:52 Most recent lab results Calcium 9.2 mg/dL (8.4-10.2) 11/19/17 05:52 Phosphorus 3.60 mg/dL (2.5-4.5) 11/19/17 05:52 Magnesium 2.10 mg/dL (1.7-2.3) 11/19/17 05:52 Urine Creatinine 132.6 mg/dL (0.1-20.0) H 11/15/17 09:20 Urine Sodium 63 mmol/L 11/15/17 09:20
[2017-11-19] MEDS: XANAX PO PRN (08:55)
[2017-11-19] MEDS ORDERED: BABY ASPIRIN PO SCH (10:00)
[2017-11-19] MEDS: NORVASC PO SCH (10:33)
[2017-11-19] MEDS: HEPARIN SUB-Q SCH (10:34)
[2017-11-19] MEDS: PEPCID PO SCH (10:34)
[2017-11-19] MEDS: LEVAQUIN 750MG/150ML 750 MG/150 ML BAG IV SCH (10:34)
--- NOTE | 2017-11-19 11:18 | Progress Note ---
Assessment and Plan Currently stable cardiac status. Avoid BB given h/o asthma and ACEI/ARB given intermittent hyperkalemia. Pt may discharge home from cardiology standpoint. Recommend follow up in our office with Laura Maldonado NP, within 3-5 days of hospital discharge ([phone]). The patient has been seen in conjunction with Dr. MICHELLE Kiser who agrees with the assessment and plan of care. - Patient Problems (1) Acute respiratory failure Current Visit: Yes Status: Acute (2) CO2 narcosis Current Visit: Yes Status: Acute (3) (HFpEF) heart failure with preserved ejection fraction Current Visit: Yes Status: Acute (4) Hypertensive urgency Current Visit: Yes Status: Acute (5) Elevated troponin Current Visit: Yes (6) Asthma Current Visit: Yes Status: Chronic (7) History of CVA (cerebrovascular accident) Current Visit: Yes Status: Acute (8) Hyperlipidemia Current Visit: Yes Status: Chronic (9) Aortic stenosis Current Visit: Yes Status: Chronic (10) Morbid obesity Current Visit: Yes Status: Chronic Subjective Date of service: 11/19/17 Principal diagnosis: Acute Hypoxemic Hypercapnic respiratory failure; Acute Encephalopathy; HTN Interval history: pt resting in bed, on RA, no current complaints. Objective Last Vital Signs Temp 98.7 F 11/18/17 21:15 Pulse 59 L 11/19/17 08:00 Resp 20 11/19/17 01:53 BP 148/86 11/19/17 05:51 Pulse Ox 97 11/19/17 05:00 - Physical Examination General: No Apparent Distress HEENT: Positive: PERRL, Normocephaly Neck: Positive: neck supple, trachea midline Cardiac: Positive: Reg Rate and Rhythm, S1/S2 Lungs: Positive: Decreased Breath Sounds Neuro: Positive: Grossly Intact Abdomen: Positive: Active Bowel Sounds Skin: Positive: Clear. Negative: Rash, Wound Musculoskeletal: No Pain, Normal Range of Motion Extremities: Absent: edema (trace BLE) - Labs and Meds Comprehensive Metabolic Panel 11/19/17 Range/Units 05:52 Sodium 139 (137-145) mmol/L Potassium 3.9 D (3.6-5.0) mmol/L Chloride 96.1 L (98-107) mmol/L Carbon Dioxide 26 (22-30) mmol/L BUN 28 H (7-17) mg/dL Creatinine 0.7 (0.7-1.2) mg/dL Glucose 117 H (65-100) mg/dL Calcium 9.2 (8.4-10.2) mg/dL - Imaging and Cardiology EKG: report reviewed, image reviewed Echo: report reviewed (11/13/2017 normal lv function, mild as and normal rvsp ) Cardiac cath: report reviewed (11/2016 showed patent coronaries, hypertensive vessels, large epicardial vessels, mod to severe tortuosity of vessels, normal LV function. ) - Telemetry EKG Rhythm: Sinus Rhythm - EKG Sinus rhythms and dysrhythmias: sinus rhythm Chamber hypertrophy or enlargement: left ventricular hypertro Repolarization changes or abnormalities: repolarization abn secondary to ventricular hypertrophy - Allied health notes Allied health notes reviewed: nursing
--- NOTE | 2017-11-19 11:25 | Progress Note ---
Assessment and Plan Acute hypercapnic respiratory failure - likley from acute asthma exacerbation and worsening pulmonary edema? -We'll monitor the patient to ICU, Weaned off from vent, s/p extubation 11/17/17 - Will provide scheduled nebulizers breathing treatment, cont biPAP as needed and bedtime - cont on empiric steroid and antibiotic - pulmonary following b/L pulmonary edema vs INEZ - Cxr on 11/15 showed worsening pulmonary edema and pleural effusion - treated with lasix - repeat CXR showed improvement Acute metabolic encephalopathy, from hypercapnea - pt is at her baseline now and can communicate with writing Acute exacerbation of asthma - cont scheduled nebulizers breathing treatment, empiric tapering steroid and antibiotic Hypertensive malignancy, on admission now normo to hypotensive - placed on home medications following admission but never received - stopped all meds for low BP, - now started on hydralazine Elevated troponin/NSTEMI type 2 - cardiology following, preserved EF on 2D ceho SIRS, with mild leukocytosis, tachycardia and tachypnea - likely from acute asthma exacerbation h/o CVA - aspirin statin for now [place], now resolved - likely from hypotensive episodes, Cr increased upto1.8 - held all BP meds, nephrology consulted hyperkalemia, K was upto 5.7 - ordered hyperkalemia cocktail, improved Morbid obesity - licensed mental health counselor when medically stable FEN - cont TF for now, held iv fluid for worsening pulmonary edema - Provide DVT prophylaxis with Lovenox. PPI for GI Px Physical Exam: GENERAL: well-developed morbidly obese -[place] female lying on bed on BiPAP HEENT: Normocephalic. Atraumatic. No conjunctival congestion or icterus. Patient has moist mucous membranes. NECK: Supple. Trachea midline. CHEST/LUNGS: Clear BS auscultated bilaterally, breathing nonlabored HEART/CARDIOVASCULAR: tachycardic. S1 and S2 positive. ABDOMEN: Abdomen is soft, nontender. Patient has normal bowel sounds. SKIN: There is no rash. Warm and dry. NEURO: communicates with writing, no focal deficit MUSCULOSKELETAL: No joint effusion or tenderness. EXTRIMITY: No edema, no cyanosis or clubbing. PSYCH: cooperative. Subjective Date of service: 11/19/17 Principal diagnosis: Acute Hypoxemic Hypercapnic respiratory failure; Acute Encephalopathy; HTN Objective - Constitutional Vitals: Vital Signs - 12hr 11/18/17 11/19/17 11/19/17 23:50 01:38 01:53 Pulse Rate 78 Pulse Rate [ 68 70 Anterior Bilateral Throughout] Respiratory 18 Rate Respiratory 20 20 Rate [Anterior Bilateral Throughout] Blood Pressure Blood Pressure [Left] O2 Sat by Pulse 98 Oximetry 11/19/17 11/19/17 11/19/17 05:00 05:15 05:50 Pulse Rate 79 79 79 Pulse Rate [ Anterior Bilateral Throughout] Respiratory Rate Respiratory Rate [Anterior Bilateral Throughout] Blood Pressure 182/117 182/117 182/117 Blood Pressure [Left] O2 Sat by Pulse 97 Oximetry 11/19/17 11/19/17 05:51 08:00 Pulse Rate 73 59 L Pulse Rate [ Anterior Bilateral Throughout] Respiratory Rate Respiratory Rate [Anterior Bilateral Throughout] Blood Pressure Blood Pressure 148/86 [Left] O2 Sat by Pulse Oximetry - Labs CBC & Chem 7: 11/17/17 07:49 11/19/17 05:52 Labs: Abnormal lab results 11/18/17 11/18/17 11/18/17 Range/Units 11:43 13:13 18:20 POC ABG pCO2 46.9 H (35-45) Chloride (98-107) mmol/L BUN (7-17) mg/dL Glucose (65-100) mg/dL POC Glucose 171 H 165 H (70-105) 11/19/17 11/19/17 11/19/17 Range/Units 01:02 05:52 07:10 POC ABG pCO2 (35-45) Chloride 96.1 L (98-107) mmol/L BUN 28 H (7-17) mg/dL Glucose 117 H (65-100) mg/dL POC Glucose 152 H 118 H (70-105) 11/19/17 Range/Units 11:23 POC ABG pCO2 (35-45) Chloride (98-107) mmol/L BUN (7-17) mg/dL Glucose (65-100) mg/dL POC Glucose 108 H (70-105)
--- NOTE | 2017-11-19 11:34 | Discharge Summary ---
Providers - Providers Date of Admission: 11/13/17 10:45 Date of discharge: 11/19/17 Attending physician: ARSLAN FARIAS 11/13/17 10:35 Consult to Physician [CONS] Urgent Comment: Bobby HUANG SAW PT IN ER Consulting Provider: THI HUANG Physician Instructions: Reason For Exam: chf, elevated trop 11/13/17 10:39 Consult to Physician [CONS] Urgent Comment: DR LAZAR CALLED 1030 Consulting Provider: ANUP LAZAR Physician Instructions: Reason For Exam: critical care, chf, ams, elevated trop, htn 11/13/17 11:10 Consult to Physician [CONS] Routine Comment: DR LAZAR PAGED 1030 Consulting Provider: STIVEN RIDER Physician Instructions: Reason For Exam: acute respiratory failure 11/13/17 17:14 Consult to Dietitian/Nutrition [CONS] Routine Physician Instructions: Reason For Exam: Reason for Consult: Write/Manage Tube Feeding 11/14/17 00:01 Consult to Dietitian/Nutrition [CONS] Routine Physician Instructions: Assess nutrtn needs, initiate, modify, manage TF Reason For Exam: Reason for Consult: Write/Manage Tube Feeding Reason for Consult: Write/Manage Tube Feeding 11/15/17 08:19 Consult to Physician [CONS] Routine Comment: Consulting Provider: ASHUTOSH GALLEGOS Physician Instructions: Reason For Exam: tico, hyperkalemia 11/15/17 10:24 Consult to PICC Line RN [CONS] Routine Reason For Exam: need iv meds Type Line:: PICC 11/17/17 14:38 Speech Therapy Evaluation and Treat [CONS] Routine Reason For Exam: aspiration 11/18/17 11:14 Physical Therapy Evaluation and Treat [CONS] Urgent Comment: Reason For Exam: evaluate & treat Primary care physician: [employer] Hospitalization Condition: Stable Hospital course: Discharge diagnosis and management: Acute hypercapnic respiratory failure - likley from acute asthma exacerbation and worsening pulmonary edema? -We'll monitor the patient to ICU, Weaned off from vent, s/p extubation 11/17/17 - Will provide scheduled nebulizers breathing treatment, cont biPAP as needed and bedtime - cont on empiric steroid and antibiotic - pulmonary following b/L pulmonary edema vs INEZ - Cxr on 11/15 showed worsening pulmonary edema and pleural effusion - treated with lasix - repeat CXR showed improvement Acute metabolic encephalopathy, from hypercapnea - pt is at her baseline now and can communicate with writing Acute exacerbation of asthma - cont scheduled nebulizers breathing treatment, empiric tapering steroid and antibiotic Hypertensive malignancy, on admission now normo to hypotensive - placed on home medications following admission but never received - stopped all meds for low BP, - now started on hydralazine Elevated troponin/NSTEMI type 2 - cardiology following, preserved EF on 2D ceho SIRS, with mild leukocytosis, tachycardia and tachypnea - likely from acute asthma exacerbation h/o CVA - aspirin statin for now [place], now resolved - likely from hypotensive episodes, Cr increased upto1.8 - held all BP meds, nephrology consulted hyperkalemia, K was upto 5.7 - ordered hyperkalemia cocktail, improved Morbid obesity - student support counselor when medically stable FEN - cont TF for now, held iv fluid for worsening pulmonary edema - Provide DVT prophylaxis with Lovenox. PPI for GI Px Physical Exam: GENERAL: well-developed morbidly obese -[place] female lying on bed no distress HEENT: Normocephalic. Atraumatic. No conjunctival congestion or icterus. Patient has moist mucous membranes. NECK: Supple. Trachea midline. CHEST/LUNGS: Clear BS auscultated bilaterally, breathing nonlabored HEART/CARDIOVASCULAR: tachycardic. S1 and S2 positive. ABDOMEN: Abdomen is soft, nontender. Patient has normal bowel sounds. SKIN: There is no rash. Warm and dry. NEURO: communicates with writing, no focal deficit MUSCULOSKELETAL: No joint effusion or tenderness. EXTRIMITY: No edema, no cyanosis or clubbing. PSYCH: cooperative. Disposition: DC-01 TO HOME OR SELFCARE Time spent for discharge: 34 minutes Core Measure Documentation - Palliative Care Palliative Care/ Comfort Measures: Not Applicable - Core Measures Any of the following diagnoses?: none Exam - Constitutional Vitals: Temp Pulse Resp BP Pulse Ox 98.7 F 71 20 148/86 97 11/18/17 21:15 11/19/17 11:20 11/19/17 11:20 11/19/17 05:51 11/19/17 05:00 Plan Activity: advance as tolerated Weight Bearing Status: Weight Bear as Tolerated Diet: low fat, low salt Follow up with: PRIMARY CAREMD [Primary Care Provider] - 3-5 Days Prescriptions: amLODIPine [Norvasc] 10 mg PO QDAY #30 tablet Aspirin [Aspirin BABY CHEW TAB] 81 mg PO QDAY #30 tab.chew Fluticasone/Salmeterol [Advair 250-50 Diskus] 1 each IH BID 30 Days blst.w.dev hydrALAZINE [Apresoline TAB] 50 mg PO Q8HR #90 tablet Ipratropium/Albuterol Sulfate [DUONEB *Not for PRN Use*] 1 ampul IH Q6HRT PRN # 30 ampul.neb PRN Reason: Shortness Of Breath predniSONE [Deltasone] 50 mg PO QDAY #4 tab
== END 2017-11-19 16:30 | disposition home or self-care (01) | DRG 208 ==
LOC: ED 08:48 → CC1 10:45 → 4A 11-18 18:49
PROVIDERS: ADMIT Internal Medicine; ATTEND Internal Medicine
PROC: 5A1945Z Respiratory Ventilation, 24-96 Consecutive Hours (ICD-10-PCS; principal; 2017-11-13)
PROC: 0BH17EZ Insertion of Endotracheal Airway into Trachea, Via Natural or Artificial Opening (ICD-10-PCS; 2017-11-13)
PROC: 4A033R1 Measurement of Arterial Saturation, Peripheral, Percutaneous Approach (ICD-10-PCS; 2017-11-13)
PROC: 5A09357 Assistance with Respiratory Ventilation, Less than 24 Consecutive Hours, Continuous Positive Airway Pressure (ICD-10-PCS; 2017-11-13)
PROC: 02HV33Z Insertion of Infusion Device into Superior Vena Cava, Percutaneous Approach (ICD-10-PCS; 2017-11-15)
PROC: 5A09357 Assistance with Respiratory Ventilation, Less than 24 Consecutive Hours, Continuous Positive Airway Pressure (ICD-10-PCS; 2017-11-17)
PROC: 5A09357 Assistance with Respiratory Ventilation, Less than 24 Consecutive Hours, Continuous Positive Airway Pressure (ICD-10-PCS; 2017-11-18)
DX: J96.02 Acute respiratory failure with hypercapnia (principal); I21.A1 Myocardial infarction type 2; G93.41 Metabolic encephalopathy; R65.10 Systemic inflammatory response syndrome (SIRS) of non-infectious origin without acute organ dysfunction; J45.901 Unspecified asthma with (acute) exacerbation; Z68.43 Body mass index [BMI] 50.0-59.9, adult; N17.9 Acute kidney failure, unspecified; I50.30 Unspecified diastolic (congestive) heart failure; J96.01 Acute respiratory failure with hypoxia; I16.0 Hypertensive urgency; I11.0 Hypertensive heart disease with heart failure; E87.5 Hyperkalemia; E66.01 Morbid (severe) obesity due to excess calories; Z86.73 Personal history of transient ischemic attack (TIA), and cerebral infarction without residual deficits; Z79.84 Long term (current) use of oral hypoglycemic drugs; Z79.899 Other long term (current) drug therapy
CPT/HCPCS: 36415; 36600; 71045; 74018; 76770; 80048; 80053; 80061; 80307; 80320; 81001; 82550; 82553; 82570; 82803; 82962; 83036; 83735; 83880; 84100; 84132; 84300; 84443; 84484; 85007; 85025; 85027; 85379; 87040; 87070; 87205; 93005; 93010; 93306; 93970; 94002; 94003; 94640; 94660; 94760; 96365; 96375; G0480; J0360; J0610; J1120; J1644; J1650; J1815; J1940; J1956; J2250; J2270; J2920; J2930; J3010; J7042; J7050

== ENCOUNTER 2019-09-23 13:40 | Outpatient (CLI) | payer OTHER ==
[2019-09-23] MEDS ORDERED: ALBUTEROL 2.5 MG/3 ML NEBU IH ONE (15:11)
== END 2019-09-23 13:41 | disposition home or self-care (01) ==
LOC: PF 13:40
PROVIDERS: ATTEND Internal Medicine
DX: J45.998 Other asthma (principal)
CPT/HCPCS: 94640

== ENCOUNTER 2019-10-07 10:53 | Outpatient (CLI) | payer OTHER ==
--- NOTE | 2019-10-07 12:49 | XRay Report ---
BILATERAL KNEES HISTORY: Lateral knee pain. COMPARISON: None. TECHNIQUE: 2 views of each knee were obtained. FINDINGS: Bones: No fracture or dislocation. Joint spaces: Moderate osteoarthritis of the left knee with narrowing of the medial joint and large m edial and lateral osteophytes. Left patellofemoral osteophytes. Mild osteoarthritis of the right knee with mild narrowing of the medial joint and small medial osteophytes. Small right patellofemoral ost eophytes. Soft tissues: No significant abnormality. Additional findings: No joint effusion. Bilateral quadriceps insertion enthesophytes. IMPRESSION: 1. Osteoarthritis, worse on the left than the right. Signer Name: Joao Epstein MD Signed: 10/07/2019 12:45 PM Workstation Name: [id number]
== END 2019-10-07 10:54 | disposition home or self-care (01) ==
LOC: XRAY 10:53
PROVIDERS: ATTEND Internal Medicine
DX: M17.0 Bilateral primary osteoarthritis of knee (principal); I11.0 Hypertensive heart disease with heart failure